=== PATIENT | female | born 1945 | race Native Hawaiian/Other Pacific Islander ===

== ENCOUNTER 2021-03-24 20:35 | Inpatient (IN) | payer MEDICARE, OTHER ==
--- NOTE | 2021-03-24 21:45 | Emergency Department Report ---
ED Fall HPI - General Stated Complaint: HIP PAIN Time Seen by Provider: 03/24/21 21:30 Source: patient, EMS Mode of arrival: Stretcher - History of Present Illness Initial Comments: Patient is 75-year-old female with history of hypertension. Patient brought to the emergency room via EMS from home for evaluation after a fall that happened this morning in the bathroom. Patient tripped fell and hit her head on the edge of the toilet bowl. Patient denied any loss of consciousness. Patient accompanied by her son who is translating for us. He stated that since the fall she is complaining of bilateral hip pain right shoulder pain and headache. She is also complaining of neck pain. Patient denied any symptoms prior to the fall. MD Complaint: fall -: This morning Fall From: standing Fall Witnessed: yes, by family Place Fall Occurred: home Symptoms Prior to Fall: none Location: head, neck, pelvis Location - Extremities: Right: Shoulder Quality: sharp Context: tripped/slipped - Related Data Allergies Allergy/AdvReac Type Severity Reaction Status Date / Time No Known Allergies Allergy Verified 03/24/21 21:46 ED Review of Systems ROS: Stated complaint: HIP PAIN Other details as noted in HPI Comment: All other systems reviewed and negative Constitutional: denies: chills, fever Respiratory: denies: cough, shortness of breath, SOB with exertion Cardiovascular: denies: chest pain Gastrointestinal: denies: abdominal pain, nausea, vomiting Musculoskeletal: denies: back pain Neurological: headache. denies: weakness, numbness, paresthesias, confusion, abnormal gait ED Physical Exam - General General appearance: alert, in no apparent distress - Head Head exam: Present: atraumatic, normocephalic, normal inspection - Eye Eye exam: Present: normal appearance - ENT ENT exam: Present: normal exam, normal orophraynx, mucous membranes moist - Neck Neck exam: Present: normal inspection, full ROM. Absent: tenderness, meningismus - Respiratory Respiratory exam: Present: normal lung sounds bilaterally - Cardiovascular Cardiovascular Exam: Present: regular rate, normal rhythm, normal heart sounds - GI/Abdominal GI/Abdominal exam: Present: soft, normal bowel sounds. Absent: distended, tenderness, rigid, organomegaly, mass, bruit, pulsatile mass, hernia - Extremities Exam Extremities exam: Present: normal inspection, full ROM, normal capillary refill. Absent: tenderness - Back Exam Back exam: Present: normal inspection, full ROM. Absent: CVA tenderness (R), CVA tenderness (L) - Neurological Exam Neurological exam: Present: alert, oriented X3, CN II-XII intact - Psychiatric Psychiatric exam: Present: normal mood - Skin Skin exam: Present: warm, intact, normal color ED Course Vital Signs 03/24/21 03/24/21 03/24/21 21:30 21:46 23:56 Temperature 98.0 F Pulse Rate 79 73 71 Respiratory 14 22 19 Rate Blood Pressure 114/36 114/36 Blood Pressure 118/35 [Left] O2 Sat by Pulse 97 96 98 Oximetry 03/25/21 03/25/21 03/25/21 00:00 00:16 00:28 Temperature Pulse Rate 70 70 Respiratory 20 21 18 Rate Blood Pressure 114/36 114/36 Blood Pressure [Left] O2 Sat by Pulse 98 98 Oximetry 03/25/21 03/25/21 03/25/21 00:30 00:58 01:00 Temperature Pulse Rate 71 70 Respiratory 19 18 14 Rate Blood Pressure 120/32 125/31 Blood Pressure [Left] O2 Sat by Pulse 97 97 Oximetry 03/25/21 03/25/21 03/25/21 01:16 01:30 02:00 Temperature Pulse Rate 71 70 70 Respiratory 12 13 22 Rate Blood Pressure 108/36 108/36 105/29 Blood Pressure [Left] O2 Sat by Pulse 97 98 99 Oximetry ED Medical Decision Making - Lab Data Result diagrams: 03/25/21 00:16 03/24/21 21:46 - EKG Data -: EKG Interpreted by Al EKG shows normal: sinus rhythm Rate: normal - EKG Data Interpretation: no acute changes - Radiology Data Radiology results: report reviewed - Medical Decision Making Patient is 75-year-old female with history of hypertension. Patient brought to the emergency room via EMS from home for evaluation after a fall that happened this morning in the bathroom. Patient tripped fell and hit her head on the edge of the toilet bowl. Patient denied any loss of consciousness. Patient accompanied by her son who is translating for us. He stated that since the fall she is complaining of bilateral hip pain right shoulder pain and headache. She is also complaining of neck pain. Patient denied any symptoms prior to the fall. EKG showed sinus rhythm with no ST elevation. CT brain, CT cervical spine is unremarkable. Pelvic x-ray is negative for acute finding. Labs reviewed and showed significantly elevated white blood cells of 34,000 however the work-up in the ER failed to find source of the leukocytosis. Chest x-ray is unremarkable. Urine is negative. CT abdomen and pelvis with IV contrast showed no acute abnormalities. Patient initially given Zosyn empirically. I discussed the ladi ent with Dr. MARTÍNEZ, he agreed to admit the patient to medical service for further management. Critical care attestation.: If time is entered above; I have spent that time in minutes in the direct care of this critically ill patient, excluding procedure time. ED Disposition Clinical Impression: Fall, Leukocytosis, unspecified Disposition: DC09 OP ADMIT IP TO THIS HOSP Is pt being admited?: Yes Condition: Stable
[2021-03-24 22:13] LABS: INR 1.2 (0.87-1.13)
[2021-03-24 22:14] LABS: Partial Thromboplastin Time 38.2 Sec. (24.2-36.6)
[2021-03-24 22:17] LABS: Hemoglobin 7.8 gm/dl (10.1-14.3)
[2021-03-24 22:18] LABS: Hematocrit 23.6 % (30.3-42.9); Mean Corpuscular HGB Conc 33 % (30-34); Mean Corpuscular Volume 85 fl (79-97); Platelet Count 548 K/mm3 (140-440); Red Cell Distribution Width 16.1 % (13.2-15.2)
[2021-03-24 22:20] LABS: Calcium 8.1 mg/dL (8.4-10.2)
[2021-03-24 22:22] LABS: Alanine Aminotransferase 37 units/L (7-56); Albumin 2.4 g/dL (3.9-5)
[2021-03-24 22:25] LABS: Bilirubin,Direct < 0.2 mg/dL (0-0.2)
--- NOTE | 2021-03-24 22:25 | Cat Scan Report ---
CT HEAD WITHOUT CONTRAST INDICATION / CLINICAL INFORMATION: Patient had a fall, now with head pain. TECHNIQUE: All CT scans at this location are performed using CT dose reduction for ALARA by means of automated e xposure control. COMPARISON: None available. FINDINGS: HEMORRHAGE: None. EXTRA-AXIAL SPACES: Normal in size and morphology for the patient's age. VENTRICULAR SYSTEM: Normal in size and morphology for the patient's age. CEREBRAL PARENCHYMA: No significant abnormality. No acute territorial infarct. MIDLINE SHIFT OR HERNIATION: None. CEREBELLUM / BRAINSTEM: No significant abnormality. ORBITS: Normal as visualized. SOFT TISSUES of HEAD: No significant abnormality. CALVARIUM: No significant abnormality. PARANASAL SINUSES / MASTOID AIR CELLS: Normal as visualized. ADDITIONAL FINDINGS: None. IMPRESSION: No acute intracranial abnormality. Signer Name: Phil Benjamin MD Signed: 03/24/2021 10:20 PM Workstation Name: [id number]
--- NOTE | 2021-03-24 22:27 | Cat Scan Report ---
CT CERVICAL SPINE WITHOUT CONTRAST INDICATION / CLINICAL INFORMATION: Patient had a fall, now with neck pain. TECHNIQUE: Axial CT images were obtained through the cervical spine. Sagittal and coronal reformatted images wer e produced. All CT scans at this location are performed using CT dose reduction for ALARA by means of automated exposure control. COMPARISON: None available. FINDINGS: VERTEBRAE: No significant abnormality. ALIGNMENT: Mild degenerative straightening of the cervical spine. DISC SPACES: There is mild to moderate disc space height loss at C5-6 C6-7. FACET JOINTS: Mild multilevel degenerative spondylosis. CRANIOCERVICAL JUNCTION:No significant abnormality. SPINAL CANAL: No significant abnormality. PARASPINAL SOFT TISSUES: No significant abnormality. ADDITIONAL FINDINGS: None. LUNG APICES: No significant abnormality of visualized lungs. IMPRESSION: No acute abnormality. Mild to moderate multilevel degenerative spondylosis. Signer Name: Phil Benjamin MD Signed: 03/24/2021 10:23 PM Workstation Name: [id number]
[2021-03-24] MEDS ORDERED: SODIUM CHLORIDE 0.9% 1000 ML 1,000 ML IV ONE (22:49)
[2021-03-24] MEDS ORDERED: PIPERACILLIN/TAZOBACTAM 3.375 3.375 GM/50 ML BAG IV ONE (23:00)
--- NOTE | 2021-03-24 23:33 | XRay Report ---
CHEST 1 VIEW 03/24/2021 10:13 PM INDICATION / CLINICAL INFORMATION: Fall. COMPARISON: None available. FINDINGS: SUPPORT DEVICES: None. HEART / MEDIASTINUM: No significant abnormality. LUNGS / PLEURA: No significant pulmonary or pleural abnormality. No pneumothorax. ADDITIONAL FINDINGS: No significant additional findings. IMPRESSION: No acute abnormality. Signer Name: Ayaz Sellers MD Signed: 03/24/2021 11:29 PM Workstation Name: [id number]
--- NOTE | 2021-03-24 23:33 | XRay Report ---
LEFT SHOULDER 3 VIEWS INDICATION / CLINICAL INFORMATION: Fall COMPARISON: None available. FINDINGS: BONES / JOINT(S): No acute fracture or subluxation. No significant arthritis. SOFT TISSUES: Possible calcific tendinosis of the rotator cuff. ADDITIONAL FINDINGS: None. Signer Name: Ayaz Sellers MD Signed: 03/24/2021 11:28 PM Workstation Name: [id number]
--- NOTE | 2021-03-24 23:35 | XRay Report ---
BILATERAL HIPS 2 VIEWS EACH INDICATION / CLINICAL INFORMATION: fall COMPARISON: None available. FINDINGS: BONES / JOINT(S): No acute fracture or subluxation. Mild symmetric DJD. SOFT TISSUES: No significant abnormality. ADDITIONAL FINDINGS: None. Signer Name: Ayaz Sellers MD Signed: 03/24/2021 11:30 PM Workstation Name: [id number]
[2021-03-25] MEDS ORDERED: ONDANSETRON 4 MG/2 ML INJ IV ONE (00:09)
[2021-03-25] MEDS ORDERED: MORPHINE 4 MG/1 ML INJ IV ONE (00:09)
[2021-03-25 00:48] LABS: Bacteria,Urine 1+ /HPF (Negative); Bilirubin,Urine NEG (Negative); Blood,Urine SM (Negative); Color,Urine Amber (Yellow); Mucus,Urine FEW /HPF
[2021-03-25 00:52] LABS: Hematocrit 25.8 % (30.3-42.9); Hemoglobin 8.6 gm/dl (10.1-14.3); Mean Corpuscular HGB Conc 33 % (30-34); Mean Corpuscular Volume 84 fl (79-97); Platelet Count 627 K/mm3 (140-440); Red Blood Count 3.08 M/mm3 (3.65-5.03); Red Cell Distribution Width 16.6 % (13.2-15.2)
[2021-03-25 00:53] LABS: Band Neutrophils # (Manual) 0.6 K/mm3; Total Cells Counted 100
[2021-03-25 00:58] LABS: Platelet Estimate Consistent w Auto; RBC Morphology Normal
[2021-03-25] MEDS ORDERED: SODIUM CHLORIDE 0.9% 1000 ML 1,000 ML IV ONE (01:43)
[2021-03-25 03:31] LABS: Band Neutrophils # (Manual) 0.3 K/mm3; Total Cells Counted 100
[2021-03-25 03:32] LABS: Platelet Estimate Consistent w Auto; RBC Morphology Normal
--- NOTE | 2021-03-25 04:38 | Cat Scan Report ---
CT ABDOMEN AND PELVIS WITH CONTRAST INDICATION / CLINICAL INFORMATION: Post-fall, now complaining of bilateral hip pain.. TECHNIQUE: Axial CT images were obtained through the abdomen and pelvis after Omnipaque 300, 100 cc I V contrast. All CT scans at this location are performed using CT dose reduction for ALARA by means o f automated exposure control. COMPARISON: None available. FINDINGS: LOWER CHEST: No significant abnormality. LIVER: No significant abnormality. GALLBLADDER: No significant abnormality. BILE DUCTS: No significant abnormality. PANCREAS: No significant abnormality. SPLEEN: No significant abnormality. ADRENALS: No significant abnormality. RIGHT KIDNEY / URETER: No significant abnormality. LEFT KIDNEY / URETER: No significant abnormality. STOMACH / SMALL BOWEL: No significant abnormality. COLON: Noninflamed diverticula descending and sigmoid colon's. APPENDIX: Nonvisualized. PERITONEUM: No free fluid. No free air. No fluid collection. LYMPH NODES: No significant adenopathy. VASCULAR STRUCTURES: Dense atherosclerotic vascular calcification. URINARY BLADDER: No significant abnormality. REPRODUCTIVE ORGANS: Prominent calcification at the uterus. ADDITIONAL FINDINGS: Fluid tracks along the medial and posterior lateral aspect of the acetabulum. Th ere is also thickening in the region of the sacrospinous ligament on the right measuring approximatel y 5.2 x 3.8 cm. SKELETAL SYSTEM: No knee injury. Underlying osteopenia. Grade 1 spondylolisthesis L5-S1 with underlyi ng severe DJD. Probable bone infarct right ishium. IMPRESSION: 1. Soft tissue injury at the right pelvis without underlying bony injury. 2. No acute abnormality within the abdomen or pelvis. 3. Noninflamed colonic diverticulosis is mild. Signer Name: Ayaz Sellers MD Signed: 03/25/2021 4:33 AM Workstation Name: [id number]
--- NOTE | 2021-03-25 09:23 | History and Physical Report ---
History of Present Illness Date of examination: 03/25/21 Date of admission: 03/25/21 05:57 Chief complaint: Status post fall History of present illness: Patient is 75-year-old female with history of cervical cancer which is now in remission, hypertension and diabetes mellitus type 2 brought to the emergency room via EMS from home for evaluation after a fall that happened this morning in the bathroom. Patient tripped fell and hit her head on the edge of the toilet bowl. Patient denied any loss of consciousness. Patient accompanied by her son who is translating for us. He stated that patient had another fall before that and she didnot revel=al that to anyone until today morning. Since the fall she is complaining of bilateral hip pain right shoulder pain and headache. Patient denied any symptoms prior to the fall. In the ER, EKG showed sinus rhythm with no ST elevation. CT brain, CT cervical spine is unremarkable. Pelvic x-ray is negative for acute finding. Labs reviewed and showed significantly elevated white blood cells of 34,000. Chest x-ray is unremarkable. Urine is negative. CT abdomen and pelvis with IV contrast showed no acute abnormalities. Patient initially given Zosyn empirically. Patient was then called for admission for further evaluation and management. Past medical History: h/o hypertension, diabetes mellitus, history of cervical cancer now in remission Past surgical History: s/p tubal ligation, possible hysterectomy Social History: Lives with family, denies any smoking, drinking and elicit drug abuse. Family History: Significant for hypertension and heart disease Review of System: Constitutional: no fever, no chills, no weight loss Ears, eyes, nose, mouth and throat: no nasal congestion, no nasal discharge, no sinus pressure, no vision change, no red eye. Neck: No neck pain or rigidity. Cardiovascular: No chest pain, no orthopnea, no palpitations, no leg swelling Respiratory: No shortness of breath, no cough, no congestion, no wheezing Gastrointestinal: no abdominal pain, no nausea, no vomiting Genitourinary : no dysuria, no hematuria Musculoskeletal: no joint swelling or muscle ache, + pelvic pain Integumentary: no rash, no pruritis Neurological: no parathesias, no numbness, no tingling Endocrine: no cold or heat intolerance, no polyuria or polydipsia Hematologic/Lymphatic: no easy bruising, no easy bleeding, no gland swelling Allergic/Immunologic: no urticaria, no angioedema. Medications and Allergies Allergies Allergy/AdvReac Type Severity Reaction Status Date / Time No Known Allergies Allergy Verified 03/24/21 21:46 Home Medications Medication Instructions Recorded Confirmed Last Taken Type Amlodipine Besylate [Norvasc] 10 mg PO DAILY 03/25/21 03/25/21 03/24/21 10:00 History AtorvaSTATin [Lipitor] 40 mg PO QHS 03/25/21 03/25/21 03/24/21 21:00 History Diclofenac 1% [Diclofenac 1% 100 gm TP QID 03/25/21 03/25/21 03/24/21 21:00 History topical gel] Gabapentin [Neurontin] 100 mg PO DAILY 03/25/21 03/25/21 03/24/21 21:00 History Nitrofurantoin Macrocrystal 100 mg PO BID 03/25/21 03/25/21 03/24/21 21:00 History [Nitrofurantoin] hydroCHLOROthiazide [HCTZ] 25 mg PO DAILY 03/25/21 03/25/21 03/24/21 10:00 History lisinopriL [Zestril TAB] 40 mg PO QDAY 03/25/21 03/25/21 03/24/21 10:00 History metFORMIN [Glucophage] 500 mg PO BID 03/25/21 03/25/21 03/24/21 17:00 History Active Meds: Active Medications Pneumococcal Polyvalent Vaccine (Pneumococcal 23 Valent 0.5 Ml Vial) 0.5 ml IM .ONCE ONE Stop: 03/25/21 09:13 Exam - Physical Exam Narrative exam: GENERAL: well-developed and well-nourished elderly female appears in moderate distress HEENT: Normocephalic. Atraumatic. No conjunctival congestion or icterus. Patient has moist mucous membranes. NECK: Supple. Trachea midline. CHEST/LUNGS: Clear to auscultated bilaterally, breathing nonlabored. No wheezes crackles or rhonchi. HEART/CARDIOVASCULAR: Regular in rate and rhythm. S1 and S2 positive. ABDOMEN: Abdomen is soft, nontender. Patient has normal bowel sounds. SKIN: There is no rash. Warm and dry. NEURO: No focal motor deficit. Follows command. MUSCULOSKELETAL: No joint effusion or tenderness. tenderness over the pelvic floor area EXTRIMITY: No edema, no cyanosis or clubbing. PSYCH: Cooperative. - Constitutional Vitals: Temp Pulse Resp BP Pulse Ox 98.0 F 71 17 121/42 97 03/24/21 21:30 03/25/21 08:42 03/25/21 08:00 03/25/21 08:42 03/25/21 08:42 Results - Labs CBC & Chem 7: 03/26/21 10:24 03/26/21 05:22 Labs: Abnormal lab results 03/24/21 03/24/21 03/24/21 Range/Units 21:46 21:46 21:46 WBC 31.4 H (4.5-11.0) K/mm3 RBC 2.80 L (3.65-5.03) M/mm3 Hgb 7.8 L (10.1-14.3) gm/dl Hct 23.6 L (30.3-42.9) % RDW 16.1 H (13.2-15.2) % Plt Count 548 H (140-440) K/mm3 Seg Neuts % (Manual) 90.0 H (40.0-70.0) % Lymphocytes % (Manual) 4.0 L (13.4-35.0) % Seg Neutrophils # Man 28.3 H (1.8-7.7) K/mm3 Monocytes # (Manual) 1.3 H (0.0-0.8) K/mm3 PT 15.0 H (12.2-14.9) Sec. INR 1.20 H (0.87-1.13) APTT 38.2 H (24.2-36.6) Sec. Sodium 126 L (137-145) mmol/L Chloride 90.5 L (98-107) mmol/L BUN 34 H (7-17) mg/dL Glucose 228 H (65-100) mg/dL POC Glucose (70-105) mg/dL Calcium 8.1 L (8.4-10.2) mg/dL AST (5-40) units/L Alkaline Phosphatase (35-129) units/L Total Protein (6.3-8.2) g/dL Albumin (3.9-5) g/dL 03/24/21 03/25/21 03/25/21 Range/Units 21:46 00:16 08:42 WBC 34.0 H (4.5-11.0) K/mm3 RBC 3.08 L (3.65-5.03) M/mm3 Hgb 8.6 L (10.1-14.3) gm/dl Hct 25.8 L (30.3-42.9) % RDW 16.6 H (13.2-15.2) % Plt Count 627 H (140-440) K/mm3 Seg Neuts % (Manual) 89.0 H (40.0-70.0) % Lymphocytes % (Manual) 6.0 L (13.4-35.0) % Seg Neutrophils # Man 30.3 H (1.8-7.7) K/mm3 Monocytes # (Manual) 1.4 H (0.0-0.8) K/mm3 PT (12.2-14.9) Sec. INR (0.87-1.13) APTT (24.2-36.6) Sec. Sodium (137-145) mmol/L Chloride (98-107) mmol/L BUN (7-17) mg/dL Glucose (65-100) mg/dL POC Glucose 167 H (70-105) mg/dL Calcium (8.4-10.2) mg/dL AST 46 H (5-40) units/L Alkaline Phosphatase 235 H (35-129) units/L Total Protein 5.7 L (6.3-8.2) g/dL Albumin 2.4 L (3.9-5) g/dL Assessment and Plan Status post fall -CT head without any acute process -Patient has no focal deficit -Continue to monitor clinically and PT eval when clinically more stable Severe pelvic pain -Likely traumatic following fall -CT abdomen pelvis x-ray soft tissue injury without any sign of fracture -Pain management as needed Leukocytosis with WBC > 31K -We will place patient on empiric antibiotic -We will consult ID and obtain alejandre culture Hyponatrenia, likely due to dehydration, continue IV fluid Normocytic anemia -Monitor H&H follow clinically Hypotension, likely from dehydration continue IV fluid DVT prophylaxis with Lovenox - admit to tele, order alejandre Cx, empiric abx - iv fluid, consult ID - monitor vitals, PT eval, cardiac diet
[2021-03-25] MEDS ORDERED: VANCOMYCIN 1,000 MG in SODIUM CHLORIDE 0.9% 500 ML 500 ML IV ONE (09:26)
[2021-03-25] MEDS ORDERED: cefTRIAXone/NS 1 GM/50 ML 1 GM/50 ML BAG IV SCH (10:00)
[2021-03-25] MEDS ORDERED: hydrALAZINE 20 MG/1 ML INJ IV PRN (10:30)
[2021-03-25] MEDS ORDERED: ACETAMINOPHEN 325 MG TAB PO PRN (10:30)
[2021-03-25] MEDS ORDERED: ONDANSETRON 4 MG/2 ML INJ IV PRN (10:30)
[2021-03-25] MEDS ORDERED: VANCOMYCIN 1,250 MG in SODIUM CHLORIDE 0.9% 250ML 250 ML IV ONE (11:00)
[2021-03-25] MEDS: SODIUM CHLORIDE 0.9% 1000 ML 1,000 ML IV SCH (11:04)
[2021-03-25] MEDS ORDERED: cefTRIAXone/NS 2 GM/100 ML 2 GM/100 ML BAG IV SCH (11:30)
[2021-03-25] MEDS ORDERED: VANCOMYCIN PHARMACY TO DOSE IV SCH (12:00)
[2021-03-25] MEDS: HYDROcodone/ACETAMINOPHEN 5-325 MG TAB PO PRN (14:40)
--- NOTE | 2021-03-25 16:14 | Consultation ---
History of Present Illness - Reason for Consult Consult date: 03/25/21 leukocytosis Requesting physician: AMBROCIO GIBSON - History of Present Illness 75-year-old female with history of hypertension, diabetes, admitted on 03/24/2021 secondary to a fall in the bathroom at home. She tripped fell bumping her head on the edge of the toilet bowl. Patient did not lose her consciousness. She has been complaining of bilateral hip pain since fall. However on further inter viewing patient complains of pelvic pain for several months. On arrival, temperature 98, HR 79, RR 14, O2 sat 97%, BP 118/35. Initial WBC 31.4. Hemoglobin 7.8. Platelets 548. Segs 90%. Creatinine 1.2. AST 46. Urinalysis negative blood cultures pending. CT of brain, CT cervical spine unremarkable. Pelvic x-ray unremarkable. Review of Systems: positive in bold print General: Generalized weakness Cutaneous: rash, pruritus Head: headaches or injury Eyes: changes in vision, eye pain, double vision Ears: ear pain, ear discharge, ringing or hearing loss Nose: nose bleeding, stuffiness Mouth & throat: bleeding gums, horseness, no dental problems, or swollen glands Neck: no pain, node enlargement/lumps, tyroid enlargement or tenderness Respiratory: SOB, cough, THAKKAR, wheezing, sputum, hemoptysis, pleuritic chest pain Cardiovascular: chest pain, leg edema, cyanosis, THAKKAR, orthopnea Musculoskeletal: edema, deformities, hip and pelvic pain Gastrointestinal: nausea, vomiting, hematemesis, diarrhea, constipation, me alireza, bright red blood in stools, fecal incontinence, jaundice Genitourinary/Reproductive: frequent urination, dysuria, hematuria, incontinence Neurogical: seizures, headaches, weakness, paresthesias, loss of speech or vision; memory loss, vertigo, tremors, numbness Psychiatric: stable mood; excessive anxiety, sadness or moodiness Medications and Allergies Allergies Allergy/AdvReac Type Severity Reaction Status Date / Time No Known Allergies Allergy Verified 03/24/21 21:46 Home Medications Medication Instructions Recorded Confirmed Last Taken Type Amlodipine Besylate [Norvasc] 10 mg PO DAILY 03/25/21 03/25/21 03/24/21 10:00 History AtorvaSTATin [Lipitor] 40 mg PO QHS 05/11/0303/25/21 03/24/21 21:00 History Diclofenac 1% [Diclofenac 1% 100 gm TP QID 03/25/21 03/25/21 03/24/21 21:00 History topical gel] Gabapentin [Neurontin] 100 mg PO DAILY 03/25/21 03/25/21 03/24/21 21:00 History Nitrofurantoin Macrocrystal 100 mg PO BID 03/25/21 03/25/21 03/24/21 21:00 Hist ory [Nitrofurantoin] hydroCHLOROthiazide [HCTZ] 25 mg PO DAILY 03/25/21 03/25/21 03/24/21 10:00 History lisinopriL [Zestril TAB] 40 mg PO QDAY 03/25/21 03/25/21 03/24/21 10:00 History metFORMIN [Glucophage] 500 mg PO BID 03/25/21 03/25/21 03/24/21 17:00 History Active Meds: Active Medications Acetaminophen (Acetaminophen 325 Mg Tab) 650 mg PO Q4H PRN PRN Reason: Pain MILD(1-3)/Fever >100.5/GUAJARDO Last Admin: 03/25/21 10:56 Dose: 650 mg Documented by: Hydrocodone Bitart/Acetaminophen (Hydrocodone/Acetaminophen 5-325 Mg Tab) 2 each PO Q6H PRN PRN Reason: Pain, Moderate (4-6) Last Admin: 03/25/21 14:40 Dose: 2 each Documented by: Enoxaparin Sodium (Enoxaparin 40 Mg/0.4 Ml Inj) 40 mg SUB-Q QDAY@2200 PHONG; Protocol Hydralazine HCl (Hydralazine 20 Mg/1 Ml Inj) 5 mg IV Q30MIN PRN PRN Reason: Hypertension Sodium Chloride (Nacl 0.9% 1000 Ml) 1,000 mls @ 100 mls/hr IV DIRECT PHONG Last Admin: 03/25/21 11:04 Dose: 100 mls/hr Documented by: Ceftriaxone Sodium (Rocephin/Ns 2 Gm/100 Ml) 2 gm in 100 mls @ 200 mls/hr IV Q24H PHONG Last Admin: 03/25/21 11:34 Dose: 200 mls/hr Documented by: Vancomycin HCl (Vancomycin/Ns 1 Gm/250 Ml) 1 gm in 250 mls @ 166.667 mls/hr IV Q24H [facility] Ondansetron HCl (Ondansetron 4 Mg/2 Ml Inj) 4 mg IV Q8H PRN PRN Reason: Nausea And Vomiting Pneumococcal Polyvalent Vaccine (Pneumococcal 23 Valent 0.5 Ml Vial) 0.5 ml IM .ONCE ONE Stop: 03/26/21 12:01 Physical Examination - Physical Exam Narrative exam: General appearance: Alert in NAD pleasant Eyes: anicteric sclerae, moist conjunctivae; no lid-lag; PERRLA HENT: Normocephalic, Atraumatic; normal external ears, nares open, oropharynx partially edentulous Neck: supple, tracheal midline, no JVD Lungs: CTA, with normal respiratory effort and no intercostal retractions CV: RRR no murmur Abdomen: Soft, non-tender; no masses or hepatosplenomegaly Extremities: no edema, no cyanosis, bilateral ischial area tenderness Skin: No rash. Psych: no agitated Neuro: alert and oriented x 3. Moving all extermities - Constitutional Vitals: Vital Signs Temp Pulse Resp BP Pulse Ox 99.1 F 67 18 117/38 95 03/25/21 10:54 03/25/21 10:44 03/25/21 12:13 03/25/21 10:54 03/25/21 10:44 Temperature -Last 24 Hours Temperature 99.1 F Temperature 98.0 F Results - Labs CBC & Chem 7: 03/25/21 00:16 03/24/21 21:46 Labs: Abnormal lab results 03/24/21 03/24/21 03/24/21 Range/Units 21:46 21:46 21:46 WBC 31.4 H (4.5-11.0) K/mm3 RBC 2.80 L (3.65-5.03) M/mm3 Hgb 7.8 L (10.1-14.3) gm/dl Hct 23.6 L (30.3-42.9) % RDW 16.1 H (13.2-15.2) % Plt Count 548 H (140-440) K/mm3 Seg Neuts % (Manual) 90.0 H (40.0-70.0) % Lymphocytes % (Manual) 4.0 L (13.4-35.0) % Seg Neutrophils # Man 28.3 H (1.8-7.7) K/mm3 Monocytes # (Manual) 1.3 H (0.0-0.8) K/mm3 PT 15.0 H (12.2-14.9) Sec. INR 1.20 H (0.87-1.13) APTT 38.2 H (24.2-36.6) Sec. Sodium 126 L (137-145) mmol/L Chloride 90.5 L (98-107) mmol/L BUN 34 H (7-17) mg/dL Glucose 228 H (65-100) mg/dL POC Glucose (70-105) mg/dL Calcium 8.1 L (8.4-10.2) mg/dL AST (5-40) units/L Alkaline Phosphatase (35-129) units/L Total Protein (6.3-8.2) g/dL Albumin (3.9-5) g/dL 03/24/21 03/25/21 03/25/21 Range/Units 21:46 00:16 08:42 WBC 34.0 H (4.5-11.0) K/mm3 RBC 3.08 L (3.65-5.03) M/mm3 Hgb 8.6 L (10.1-14.3) gm/dl Hct 25.8 L (30.3-42.9) % RDW 16.6 H (13.2-15.2) % Plt Count 627 H (140-440) K/mm3 Seg Neuts % (Manual) 89.0 H (40.0-70.0) % Lymphocytes % (Manual) 6.0 L (13.4-35.0) % Seg Neutrophils # Man 30.3 H (1.8-7.7) K/mm3 Monocytes # (Manual) 1.4 H (0.0-0.8) K/mm3 PT (12.2-14.9) Sec. INR (0.87-1.13) APTT (24.2-36.6) Sec. Sodium (137-145) mmol/L Chloride (98-107) mmol/L BUN (7-17) mg/dL Glucose (65-100) mg/dL POC Glucose 167 H (70-105) mg/dL Calcium (8.4-10.2) mg/dL AST 46 H (5-40) units/L Alkaline Phosphatase 235 H (35-129) units/L Total Protein 5.7 L (6.3-8.2) g/dL Albumin 2.4 L (3.9-5) g/dL Assessment and Plan Cultures: Blood culture 03/25/2021 no growth today Assessment: 75-year-old female with history of hypertension, diabetes, admitted on 03/24/2021 secondary to a fall in the bathroom at home pain for several months: #Leukocytosis and thrombocytosis: Of unclear etiology. Patient complaining of pelvic pain for several months. CT abdomen shows fluid tracks along the right medial acetabulum and thickening of the sacrospinosus ligament. Abdominal CT otherwise unremarkable. Patient denies any weight loss. Patient is not the best historian. #Anemia #Elevated LFTs: Mild, AST 46. Unclear etiology, CT without cholecystitis. Recommendations: -Obtain ESR and CRP -Obtain pelvic MRI with contrast -Stop antibiotics for now -Heme-onc consultation rule out malignancy -Check procalcitonin Will follow. Gillian Arambula MD Infectious Diseases Structural [employer] [facility] M [phone] O [phone]
[2021-03-25] MEDS ORDERED: SODIUM CHLORIDE 0.9% 250ML 250 ML IV SCH ×2 (17:00→18:00)
[2021-03-25] MEDS ORDERED: NORepinephrine/NS 4 MG-250 ML 4 MG/250 ML BAG IV SCH (18:00)
[2021-03-25] MEDS: ENOXAPARIN 40 MG/0.4 ML INJ SUB-Q SCH (21:06)
[2021-03-25] MEDS ORDERED: VANCOMYCIN/NS 1 GM/250 ML 1 GM/250 ML BAG IV SCH (22:00)
--- NOTE | 2021-03-26 03:12 | Hem/Onc Consultation ---
History of Present Illness - History of Present Illness heme/onc prelim consult data review only 75yo woman admitted after falloing found to have high plt and WBC DATA REVIEWED BELOW IMP: presumed myeloproliferative disorder doubt heme malignancy REC: will consider Hydroxyurea will consider bone marrow biopsy to look for myelofibrosis labs to include iron testing, JAK2 mutation, BCR-ABL Laboratory Last Values WBC 34.0 K/mm3 (4.5-11.0) H 03/25/21 00:16 Hgb 8.6 gm/dl (10.1-14.3) L 03/25/21 00:16 Hct 25.8 % (30.3-42.9) L 03/25/21 00:16 Plt Count 627 K/mm3 (140-440) H 03/25/21 00:16 ESR > 140.0 mm/Hr (0-20) 03/25/21 19:04 INR 1.20 (0.87-1.13) H 03/24/21 21:46 APTT 38.2 Sec. (24.2-36.6) H 03/24/21 21:46 rine Bacteria (Auto) 1+ /HPF (Negative) 03/25/21 Unknown Urine Mucus Few /HPF 03/25/21 Unknown Medications and Allergies Allergies Allergy/AdvReac Type Severity Reaction Status Date / Time No Known Allergies Allergy Verified 03/24/21 21:46 Home Medications Medication Instructions Recorded Confirmed Last Taken Type Amlodipine Besylate [Norvasc] 10 mg PO DAILY 03/25/21 03/25/21 03/24/21 10:00 History AtorvaSTATin [Lipitor] 40 mg PO QHS 03/25/21 03/25/21 03/24/21 21:00 History Diclofenac 1% [Diclofenac 1% 100 gm TP QID 03/25/21 03/25/21 03/24/21 21:00 History topical gel] Gabapentin [Neurontin] 100 mg PO DAILY 03/25/21 03/25/21 03/24/21 21:00 History Nitrofurantoin Macrocrystal 100 mg PO BID 03/25/21 03/25/21 03/24/21 21:00 History [Nitrofurantoin] hydroCHLOROthiazide [HCTZ] 25 mg PO DAILY 03/25/21 03/25/21 03/24/21 10:00 History lisinopriL [Zestril TAB] 40 mg PO QDAY 03/25/21 03/25/21 03/24/21 10:00 History metFORMIN [Glucophage] 500 mg PO BID 03/25/21 03/25/21 03/24/21 17:00 History Active Meds: Active Medications Acetaminophen (Acetaminophen 325 Mg Tab) 650 mg PO Q4H PRN PRN Reason: Pain MILD(1-3)/Fever >100.5/GUAJARDO Last Admin: 03/25/21 10:56 Dose: 650 mg Documented by: Hydrocodone Bitart/Acetaminophen (Hydrocodone/Acetaminophen 5-325 Mg Tab) 2 each PO Q6H PRN PRN Reason: Pain, Moderate (4-6) Last Admin: 03/25/21 14:40 Dose: 2 each Documented by: Atorvastatin Calcium (Atorvastatin 40 Mg Tab) 40 mg PO QHS PHONG Last Admin: 03/25/21 21:06 Dose: 40 mg Documented by: Enoxaparin Sodium (Enoxaparin 40 Mg/0.4 Ml Inj) 40 mg SUB-Q QDAY@2200 PHONG; Protocol Last Admin: 03/25/21 21:06 Dose: 40 mg Documented by: Hydralazine HCl (Hydralazine 20 Mg/1 Ml Inj) 5 mg IV Q30MIN PRN PRN Reason: Hypertension Sodium Chloride (Nacl 0.9% 1000 Ml) 1,000 mls @ 100 mls/hr IV DIRECT PHONG Last Admin: 03/25/21 11:04 Dose: 100 mls/hr Documented by: Ceftriaxone Sodium (Rocephin/Ns 2 Gm/100 Ml) 2 gm in 100 mls @ 200 mls/hr IV Q24H PHONG Last Infusion: 03/25/21 12:04 Dose: Infused Documented by: Vancomycin HCl (Vancomycin/Ns 1 Gm/250 Ml) 1 gm in 250 mls @ 166.667 mls/hr IV Q24H [facility] Norepinephrine (Levophed Drip 4 Mg/Ns 250 Ml) 4 mg in 250 mls @ 7.5 mls/hr IV TITR [facility]; Protocol Ondansetron HCl (Ondansetron 4 Mg/2 Ml Inj) 4 mg IV Q8H PRN PRN Reason: Nausea And Vomiting Last Admin: 03/25/21 18:18 Dose: 4 mg Documented by: Pneumococcal Polyvalent Vaccine (Pneumococcal 23 Valent 0.5 Ml Vial) 0.5 ml IM .ONCE ONE Stop: 03/26/21 12:01 Exam - Constitutional Vitals: Last Vital Signs Temp 97.4 F L 03/25/21 22:57 Pulse 68 03/26/21 02:12 Resp 18 03/25/21 22:57 BP 107/37 03/26/21 02:12 Pulse Ox 92 03/26/21 02:12 Results - Labs lab Results: Laboratory Results - last 24 hr 03/24/21 03/25/21 03/25/21 21:46 00:16 08:42 Add Manual Diff Complete Total Counted 100 Seg Neuts % (Manual) 89.0 H Band Neutrophils % 1.0 Lymphocytes % (Manual) 6.0 L Monocytes % (Manual) 4.0 Nucleated RBC % Not Reportable Seg Neutrophils # Man 30.3 H Band Neutrophils # 0.3 Lymphocytes # (Manual) 2.0 Abs React Lymphs (Man) 0.0 Monocytes # (Manual) 1.4 H Eosinophils # (Manual) 0.0 Basophils # (Manual) 0.0 Metamyelocytes # 0.0 Myelocytes # 0.0 Promyelocytes # 0.0 Blast Cells # 0.0 Pathologist Review WBC Morphology Not Reportable Hypersegmented Neuts Not Reportable Hyposegmented Neuts Not Reportable Hypogranular Neuts Not Reportable Smudge Cells Not Reportable Toxic Granulation Not Reportable Toxic Vacuolation Not Reportable Dohle Bodies Not Reportable Pelger-Huet Anomaly Not Reportable Ad Rods Not Reportable Platelet Estimate Consistent w auto Clumped Platelets Not Reportable Plt Clumps, EDTA Not Reportable Large Platelets Not Reportable Giant Platelets Not Reportable Platelet Satelliting Not Reportable Plt Morphology Comment Not Reportable RBC Morphology Normal Dimorphic RBCs Not Reportable Polychromasia Not Reportable Hypochromasia Not Reportable Poikilocytosis Not Reportable Anisocytosis Not Reportable Microcytosis Not Reportable Macrocytosis Not Reportable Spherocytes Not Reportable Pappenheimer Bodies Not Reportable Sickle Cells Not Reportable Target Cells Not Reportable Tear Drop Cells Not Reportable Ovalocytes Not Reportable Helmet Cells Not Reportable [place] Bodies Not Reportable [place] Rings Not Reportable [place] Cells Not Reportable Bite Cells Not Reportable Crenated Cell Not Reportable Elliptocytes Not Reportable Acanthocytes (Spur) Not Reportable Rouleaux Not Reportable Hemoglobin C Crystals Not Reportable Schistocytes Not Reportable Malaria parasites Not Reportable ESR Bautista Bodies Not Reportable Hem Pathologist Commnt No POC Glucose 167 H C-Reactive Protein 03/25/21 03/25/21 03/25/21 11:01 16:28 19:04 Add Manual Diff Total Counted Seg Neuts % (Manual) Band Neutrophils % Lymphocytes % (Manual) Monocytes % (Manual) Nucleated RBC % Seg Neutrophils # Man Band Neutrophils # Lymphocytes # (Manual) Abs React Lymphs (Man) Monocytes # (Manual) Eosinophils # (Manual) Basophils # (Manual) Metamyelocytes # Myelocytes # Promyelocytes # Blast Cells # Pathologist Review WBC Morphology Hypersegmented Neuts Hyposegmented Neuts Hypogranular Neuts Smudge Cells Toxic Granulation Toxic Vacuolation Dohle Bodies Pelger-Huet Anomaly Ad Rods Platelet Estimate Clumped Platelets Plt Clumps, EDTA Large Platelets Giant Platelets Platelet Satelliting Plt Morphology Comment RBC Morphology Dimorphic RBCs Polychromasia Hypochromasia Poikilocytosis Anisocytosis Microcytosis Macrocytosis Spherocytes Pappenheimer Bodies Sickle Cells Target Cells Tear Drop Cells Ovalocytes Helmet Cells [place] Bodies [place] Rings Nik Cells Bite Cells Crenated Cell Elliptocytes Acanthocytes (Spur) Rouleaux Hemoglobin C Crystals Schistocytes Malaria parasites ESR > 140.0 Bautista Bodies Hem Pathologist Commnt POC Glucose 249 H 227 H C-Reactive Protein 03/25/21 03/25/21 19:04 20:48 Add Manual Diff Total Counted Seg Neuts % (Manual) Band Neutrophils % Lymphocytes % (Manual) Monocytes % (Manual) Nucleated RBC % Seg Neutrophils # Man Band Neutrophils # Lymphocytes # (Manual) Abs React Lymphs (Man) Monocytes # (Manual) Eosinophils # (Manual) Basophils # (Manual) Metamyelocytes # Myelocytes # Promyelocytes # Blast Cells # Pathologist Review WBC Morphology Hypersegmented Neuts Hyposegmented Neuts Hypogranular Neuts Smudge Cells Toxic Granulation Toxic Vacuolation Dohle Bodies Pelger-Huet Anomaly Ad Rods Platelet Estimate Clumped Platelets Plt Clumps, EDTA Large Platelets Giant Platelets Platelet Satelliting Plt Morphology Comment RBC Morphology Dimorphic RBCs Polychromasia Hypochromasia Poikilocytosis Anisocytosis Microcytosis Macrocytosis Spherocytes Pappenheimer Bodies Sickle Cells Target Cells Tear Drop Cells Ovalocytes Helmet Cells [place] Bodies [place] Rings [place] Cells Bite Cells Crenated Cell Elliptocytes Acanthocytes (Spur) Rouleaux Hemoglobin C Crystals Schistocytes Malaria parasites ESR Bautista Bodies Hem Pathologist Commnt POC Glucose 217 H C-Reactive Protein 26.30 H
[2021-03-26 07:01] LABS: Albumin 1.9 g/dL (3.9-5); Calcium 7.6 mg/dL (8.4-10.2)
[2021-03-26 11:25] LABS: Hematocrit 24.7 % (30.3-42.9); Hemoglobin 8.1 gm/dl (10.1-14.3); Mean Corpuscular HGB Conc 33 % (30-34); Mean Corpuscular Volume 85 fl (79-97); Platelet Count 502 K/mm3 (140-440); Red Blood Count 2.91 M/mm3 (3.65-5.03); Red Cell Distribution Width 16.8 % (13.2-15.2)
--- NOTE | 2021-03-26 11:55 | Electrocardiograph Report ---
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
[2021-03-26] MEDS ORDERED: PNEUMOCOCCAL 23 Valent 0.5 ML VIAL IM ONE (12:00)
[2021-03-26] MEDS ORDERED: VANCOMYCIN/NS 1 GM/250 ML 1 GM/250 ML BAG IV SCH (12:00)
--- NOTE | 2021-03-26 12:51 | Consultation ---
History of Present Illness Consult date: 03/26/21 Requesting physician: AMBROCIO GIBSON Reason for consult: other (Sepsis) History of present illness: PULMONARY/CCM CONSULT NOTE (Full dictation # [id number]) Please see dictated notes for full details Medications and Allergies Allergies Allergy/AdvReac Type Severity Reaction Status Date / Time No Known Allergies Allergy Verified 03/24/21 21:46 Home Medications Medication Instructions Recorded Confirmed Last Taken Type Amlodipine Besylate [Norvasc] 10 mg PO DAILY 03/25/21 03/25/21 03/24/21 10:00 History AtorvaSTATin [Lipitor] 40 mg PO QHS 03/25/21 03/25/21 03/24/21 21:00 History Diclofenac 1% [Diclofenac 1% 100 gm TP QID 03/25/21 03/25/21 03/24/21 21:00 History topical gel] Gabapentin [Neurontin] 100 mg PO DAILY 03/25/21 03/25/21 03/24/21 21:00 History Nitrofurantoin Macrocrystal 100 mg PO BID 03/25/21 03/25/21 03/24/21 21:00 History [Nitrofurantoin] hydroCHLOROthiazide [HCTZ] 25 mg PO DAILY 03/25/21 03/25/21 03/24/21 10:00 History lisinopriL [Zestril TAB] 40 mg PO QDAY 03/25/21 03/25/21 03/24/21 10:00 History metFORMIN [Glucophage] 500 mg PO BID 03/25/21 03/25/21 03/24/21 17:00 History Active Meds: Active Medications Acetaminophen (Acetaminophen 325 Mg Tab) 650 mg PO Q4H PRN PRN Reason: Pain MILD(1-3)/Fever >100.5/GUAJARDO Last Admin: 03/25/21 10:56 Dose: 650 mg Documented by: Hydrocodone Bitart/Acetaminophen (Hydrocodone/Acetaminophen 5-325 Mg Tab) 2 each PO Q6H PRN PRN Reason: Pain, Moderate (4-6) Last Admin: 03/25/21 14:40 Dose: 2 each Documented by: Atorvastatin Calcium (Atorvastatin 40 Mg Tab) 40 mg PO QHS PHONG Last Admin: 03/25/21 21:06 Dose: 40 mg Documented by: Enoxaparin Sodium (Enoxaparin 40 Mg/0.4 Ml Inj) 40 mg SUB-Q QDAY@2200 PHONG; Protocol Last Admin: 03/25/21 21:06 Dose: 40 mg Documented by: Hydralazine HCl (Hydralazine 20 Mg/1 Ml Inj) 5 mg IV Q30MIN PRN PRN Reason: Hypertension Sodium Chloride (Nacl 0.9% 1000 Ml) 1,000 mls @ 100 mls/hr IV DIRECT PHONG Last Admin: 03/25/21 11:04 Dose: 100 mls/hr Documented by: Ondansetron HCl (Ondansetron 4 Mg/2 Ml Inj) 4 mg IV Q8H PRN PRN Reason: Nausea And Vomiting Last Admin: 03/25/21 18:18 Dose: 4 mg Documented by: Physical Examination Vital signs: Vital Signs Temp Pulse Resp BP Pulse Ox 98.0 F 79 14 118/35 97 03/24/21 21:30 03/24/21 21:30 03/24/21 21:30 03/24/21 21:30 03/24/21 21:30 Results - Laboratory Findings CBC and BMP: 03/26/21 10:24 03/26/21 05:22 PT/INR, D-dimer PT 15.0 Sec. (12.2-14.9) H 03/24/21 21:46 INR 1.20 (0.87-1.13) H 03/24/21 21:46 Abnormal lab findings: Abnormal Labs 03/24/21 03/24/21 03/24/21 21:46 21:46 21:46 WBC 31.4 H RBC 2.80 L Hgb 7.8 L Hct 23.6 L RDW 16.1 H Plt Count 548 H Seg Neuts % (Manual) 90.0 H Lymphocytes % (Manual) 4.0 L Seg Neutrophils # Man 28.3 H Monocytes # (Manual) 1.3 H PT 15.0 H INR 1.20 H APTT 38.2 H Sodium 126 L Chloride 90.5 L BUN 34 H Creatinine Glucose 228 H POC Glucose Calcium 8.1 L AST Alkaline Phosphatase C-Reactive Protein Total Protein Albumin 03/24/21 03/25/21 03/25/21 21:46 00:16 08:42 WBC 34.0 H RBC 3.08 L Hgb 8.6 L Hct 25.8 L RDW 16.6 H Plt Count 627 H Seg Neuts % (Manual) 89.0 H Lymphocytes % (Manual) 6.0 L Seg Neutrophils # Man 30.3 H Monocytes # (Manual) 1.4 H PT INR APTT Sodium Chloride BUN Creatinine Glucose POC Glucose 167 H Calcium AST 46 H Alkaline Phosphatase 235 H C-Reactive Protein Total Protein 5.7 L Albumin 2.4 L 03/25/21 03/25/21 03/25/21 11:01 16:28 19:04 WBC RBC Hgb Hct RDW Plt Count Seg Neuts % (Manual) Lymphocytes % (Manual) Seg Neutrophils # Man Monocytes # (Manual) PT INR APTT Sodium Chloride BUN Creatinine Glucose POC Glucose 249 H 227 H Calcium AST Alkaline Phosphatase C-Reactive Protein 26.30 H Total Protein Albumin 03/25/21 03/26/21 03/26/21 20:48 05:22 10:24 WBC 31.0 H RBC 2.91 L Hgb 8.1 L Hct 24.7 L RDW 16.8 H Plt Count 502 H Seg Neuts % (Manual) Lymphocytes % (Manual) Seg Neutrophils # Man Monocytes # (Manual) PT INR APTT Sodium 132 L Chloride BUN 35 H Creatinine 1.6 H Glucose 195 H POC Glucose 217 H Calcium 7.6 L AST Alkaline Phosphatase 198 H C-Reactive Protein Total Protein 6.1 L Albumin 1.9 L
--- NOTE | 2021-03-26 13:16 | Progress Note ---
Assessment and Plan Cultures: Blood culture 03/25/2021 no growth today MRSA PCR negative Assessment: 75-year-old female with history of hypertension, diabetes, admitted on 03/24/2021 secondary to a fall in the bathroom at home pain for several months: #Leukocytosis and thrombocytosis: Of unclear etiology. Patient complaining of pelvic pain for several months. CT abdomen shows fluid tracks along the right medial acetabulum and thickening of the sacrospinosus ligament. Abdominal CT otherwise unremarkable. Patient denies any weight loss. Patient is not the best historian. #bilateral ischial pain R>L: On exam severe tenderness noted mild induration on right ischeal area ? Abscess. Patient reports pain has been there for several weeks and radiates to the right foot. CRP 26. #Anemia #Elevated LFTs: Mild, AST 46. Unclear etiology, CT without cholecystitis. #GREGOR: Creatinine up Recommendations: -Obtain pelvic MRI with contrast and lumbar spine MRI evaluation for epidural abscess, discitis, rectal ischial abscess -Given concern about infection ? Pelvic abscess, will start Zosyn IV for now -If collection is identified, will request IR drainage -Heme-onc on board Discussed with attending Dr Krause Will follow. Gillian Arambula MD Infectious Diseases Activity Therapist [facility] [place] M [phone] O [phone] Subjective Date of service: 03/26/21 Principal diagnosis: Leukocytosis Interval history: Patient continues to complain of 10 out of 10 left ischial pain mainly with movement and radiated to the left foot, no fever. Objective - Exam Narrative Exam: General appearance: Alert in NAD pleasant Eyes: anicteric sclerae, moist conjunctivae; no lid-lag; PERRLA HENT: Normocephalic, Atraumatic; normal external ears, nares open, oropharynx partially edentulous Neck: supple, tracheal midline, no JVD Lungs: CTA, with normal respiratory effort and no intercostal retractions CV: RRR no murmur Abdomen: Soft, non-tender; no masses or hepatosplenomegaly Extremities: no edema, no cyanosis, bilateral ischial area tenderness Skin: lright ischeal tenderness and induration Psych: no agitated Neuro: alert and oriented x 3. Moving all extermities - Constitutional Vitals: Vital Signs Temp Pulse Resp BP Pulse Ox 98.8 F 76 18 136/45 98 03/26/21 11:35 03/26/21 11:35 03/26/21 11:35 03/26/21 11:35 03/26/21 11:35 Temperature -Last 24 Hours Temperature 98.8 F Temperature 98.9 F Temperature 97.2 F Temperature 97.4 F Temperature 98.3 F Temperature 98.6 F Temperature 98.0 F - Labs CBC & Chem 7: 03/26/21 10:24 03/26/21 05:22 Labs: Abnormal lab results 03/25/21 03/25/21 03/25/21 Range/Units 11:01 16:28 19:04 WBC (4.5-11.0) K/mm3 RBC (3.65-5.03) M/mm3 Hgb (10.1-14.3) gm/dl Hct (30.3-42.9) % RDW (13.2-15.2) % Plt Count (140-440) K/mm3 Sodium (137-145) mmol/L BUN (7-17) mg/dL Creatinine (0.6-1.2) mg/dL Glucose (65-100) mg/dL POC Glucose 249 H 227 H (70-105) mg/dL Calcium (8.4-10.2) mg/dL Alkaline Phosphatase (35-129) units/L C-Reactive Protein 26.30 H (0.00-1.30) mg/dL Total Protein (6.3-8.2) g/dL Albumin (3.9-5) g/dL 03/25/21 03/26/21 03/26/21 Range/Units 20:48 05:22 10:24 WBC 31.0 H (4.5-11.0) K/mm3 RBC 2.91 L (3.65-5.03) M/mm3 Hgb 8.1 L (10.1-14.3) gm/dl Hct 24.7 L (30.3-42.9) % RDW 16.8 H (13.2-15.2) % Plt Count 502 H (140-440) K/mm3 Sodium 132 L (137-145) mmol/L BUN 35 H (7-17) mg/dL Creatinine 1.6 H (0.6-1.2) mg/dL Glucose 195 H (65-100) mg/dL POC Glucose 217 H (70-105) mg/dL Calcium 7.6 L (8.4-10.2) mg/dL Alkaline Phosphatase 198 H (35-129) units/L C-Reactive Protein (0.00-1.30) mg/dL Total Protein 6.1 L (6.3-8.2) g/dL Albumin 1.9 L (3.9-5) g/dL
[2021-03-26] MEDS ORDERED: PIPERACIL/TAZOBACTA 4.5/NS 100 4.5 GM/100 ML VIAL IV SCH (14:00)
--- NOTE | 2021-03-26 14:04 | Progress Note ---
Assessment and Plan Status post fall -CT head without any acute process -Patient has no focal deficit -Continue to monitor clinically and PT eval when clinically more stable Severe pelvic pain -Likely traumatic following fall -CT abdomen pelvis x-ray soft tissue injury without any sign of fracture -Pain management as needed - Ordered for pelvic and lumbar spine MRI Leukocytosis with WBC > 31K -We will place patient on empiric antibiotic -We will consult ID and obtain alejandre culture -Heme-onc on board for possible myeloproliferative disorder Hyponatrenia, likely due to dehydration, continue IV fluid Hypotensive episode, resolved following IV fluid boluses Normocytic anemia with thrombocytosis -Monitor H&H follow clinically -Heme-onc on board Hypotension, likely from dehydration continue IV fluid DVT prophylaxis with Lovenox Daily clinical course: 03/25/21: Following admission patient noted to be hypotensive, given IV fluid boluses and continued fluid with maintenance rate. Plan to transfer to ICU to start on pressor if BP does not improve with fluid challenge. 03/26/21: Patient continues to complains of pelvic pain. Noted to have CVA tenderness over the right ischeal tuberosity. Will Obtain pelvic MRI with contrast and lumbar spine MRI evaluation for possible epidural abscess, di scitis, rectal ischial abscess, continue empiric antibiotics for now, ID following. Heme-onc consulted possible underlying myeloproliferative disorder we will follow pending labs- Subjective Date of service: 03/26/21 Principal diagnosis: Leukocytosis Interval history: Patient seen and examined. Medical records and medication list reviewed. No acute event overnight noted by the RN. Patient continue to complain of severe pelvic pain Discussed plan of care at bedside with patient. Objective - Exam Narrative Exam: GENERAL: well-developed and well-nourished elderly female appears in moderate distress HEENT: Normocephalic. Atraumatic. No conjunctival congestion or icterus. Patient has moist mucous membranes. NECK: Supple. Trachea midline. CHEST/LUNGS: Clear to auscultated bilaterally, breathing nonlabored. No wheezes crackles or rhonchi. HEART/CARDIOVASCULAR: Regular in rate and rhythm. S1 and S2 positive. ABDOMEN: Abdomen is soft, nontender. Patient has normal bowel sounds. SKIN: There is no rash. Warm and dry. NEURO: No focal motor deficit. Follows command. MUSCULOSKELETAL: No joint effusion or tenderness. tenderness over the pelvic floor area EXTRIMITY: No edema, no cyanosis or clubbing. PSYCH: Cooperative. - Constitutional Vitals: Vital Signs - 12hr 03/26/21 03/26/21 03/26/21 02:12 03:09 04:00 Temperature 97.2 F L Pulse Rate 68 72 67 Respiratory 16 Rate Blood Pressure 107/37 124/40 O2 Sat by Pulse 92 93 Oximetry 03/26/21 03/26/21 03/26/21 07:49 08:00 09:48 Temperature 98.9 F Pulse Rate 72 76 Respiratory 18 Rate Blood Pressure 139/48 O2 Sat by Pulse 100 99 Oximetry 03/26/21 11:35 Temperature 98.8 F Pulse Rate 76 Respiratory 18 Rate Blood Pressure 136/45 O2 Sat by Pulse 98 Oximetry - Labs CBC & Chem 7: 03/26/21 10:24 03/26/21 05:22 Labs: Abnormal lab results 03/25/21 03/25/21 03/25/21 Range/Units 11:01 16:28 19:04 WBC (4.5-11.0) K/mm3 RBC (3.65-5.03) M/mm3 Hgb (10.1-14.3) gm/dl Hct (30.3-42.9) % RDW (13.2-15.2) % Plt Count (140-440) K/mm3 Sodium (137-145) mmol/L BUN (7-17) mg/dL Creatinine (0.6-1.2) mg/dL Glucose (65-100) mg/dL POC Glucose 249 H 227 H (70-105) mg/dL Calcium (8.4-10.2) mg/dL Alkaline Phosphatase (35-129) units/L C-Reactive Protein 26.30 H (0.00-1.30) mg/dL Total Protein (6.3-8.2) g/dL Albumin (3.9-5) g/dL 03/25/21 03/26/21 03/26/21 Range/Units 20:48 05:22 10:24 WBC 31.0 H (4.5-11.0) K/mm3 RBC 2.91 L (3.65-5.03) M/mm3 Hgb 8.1 L (10.1-14.3) gm/dl Hct 24.7 L (30.3-42.9) % RDW 16.8 H (13.2-15.2) % Plt Count 502 H (140-440) K/mm3 Sodium 132 L (137-145) mmol/L BUN 35 H (7-17) mg/dL Creatinine 1.6 H (0.6-1.2) mg/dL Glucose 195 H (65-100) mg/dL POC Glucose 217 H (70-105) mg/dL Calcium 7.6 L (8.4-10.2) mg/dL Alkaline Phosphatase 198 H (35-129) units/L C-Reactive Protein (0.00-1.30) mg/dL Total Protein 6.1 L (6.3-8.2) g/dL Albumin 1.9 L (3.9-5) g/dL
[2021-03-26] MEDS: HYDROcodone/ACETAMINOPHEN 5-325 MG TAB PO PRN (14:13)
--- NOTE | 2021-03-26 14:20 | Hem/Onc Consultation ---
History of Present Illness - History of Present Illness heme/onc televisit consult 75yo woman admitted after falling admitted for severe R hip pain can barely walk says she has had same debra for months found to have high plt and WBC and elevated alk phos DATA REVIEWED BELOW R hip X ray neg for fracture IMP: presumed myeloproliferative disorder doubt heme malignancy severe R hip pain with abn imaging, maybe inflammation or fluid or blood this could be inflam/gout related to MPD r/o fracture solid tumor malignancy is a possibility REC: no Hydroxyurea yet will consider bone marrow biopsy to look for myelofibrosis try for R hip MRI if she can tolerate it consier nuclear bone scan opiate meds for pain steroid pulse IV abd prescribed in case this is abscess labs to include iron testing, JAK2 mutation, BCR-ABL hgb electrophoresis, SPEP Active Medications Acetaminophen (Acetaminophen 325 Mg Tab) 650 mg PO Q4H PRN PRN Reason: Pain MILD(1-3)/Fever >100.5/GUAJARDO Last Admin: 03/25/21 10:56 Dose: 650 mg Documented by: Hydrocodone Bitart/Acetaminophen (Hydrocodone/Acetaminophen 5-325 Mg Tab) 2 each PO Q6H PRN PRN Reason: Pain, Moderate (4-6) Last Admin: 03/26/21 14:13 Dose: 2 each Documented by: Atorvastatin Calcium (Atorvastatin 40 Mg Tab) 40 mg PO QHS PHONG Last Admin: 03/25/21 21:06 Dose: 40 mg Documented by: Enoxaparin Sodium (Enoxaparin 40 Mg/0.4 Ml Inj) 40 mg SUB-Q QDAY@2200 PHONG; Protocol Last Admin: 03/25/21 21:06 Dose: 40 mg Documented by: Hydralazine HCl (Hydralazine 20 Mg/1 Ml Inj) 5 mg IV Q30MIN PRN PRN Reason: Hypertension Sodium Chloride (Nacl 0.9% 1000 Ml) 1,000 mls @ 100 mls/hr IV DIRECT PHONG Last Admin: 03/25/21 11:04 Dose: 100 mls/hr Documented by: Piperacillin Sod/Tazobactam Sod (Zosyn/Ns 2.25 Gm/50ml) 2.25 gm in 50 mls @ 100 mls/hr IV Q6HR PHONG Lorazepam (Lorazepam 2 Mg/Ml Vial) 2 mg IV ONCE ONE Stop: 03/26/21 15:01 Methylprednisolone Sodium Succinate (Methylprednisolone Sod Succinate 125 Mg/2 Ml Inj) 60 mg IV Q12H PHONG Stop: 03/28/21 14:59 Ondansetron HCl (Ondansetron 4 Mg/2 Ml Inj) 4 mg IV Q8H PRN PRN Reason: Nausea And Vomiting Last Admin: 03/25/21 18:18 Dose: 4 mg Documented by: Laboratory Last Values WBC 31.0 K/mm3 (4.5-11.0) H 03/26/21 10:24 Hgb 8.1 gm/dl (10.1-14.3) L 03/26/21 10:24 Hct 24.7 % (30.3-42.9) L 03/26/21 10:24 Plt Count 502 K/mm3 (140-440) H 03/26/21 10:24 Seg Neuts % (Manual) 89.0 % (40.0-70.0) H 03/25/21 00:16 Band Neutrophils % 1.0 % 03/25/21 00:16 Lymphocytes % (Manual) 6.0 % (13.4-35.0) L 03/25/21 00:16 Monocytes % (Manual) 4.0 % (0.0-7.3) 03/25/21 00:16 ESR > 140.0 mm/Hr (0-20) 03/25/21 19:04 Creatinine 1.6 mg/dL (0.6-1.2) H 03/26/21 05:22 Calcium 7.6 mg/dL (8.4-10.2) L 03/26/21 05:22 Indirect Bilirubin 0.2 mg/dL 03/24/21 21:46 AST 27 units/L (5-40) 03/26/21 05:22 ALT 27 units/L (7-56) 03/26/21 05:22 Alkaline Phosphatase 198 units/L (35-129) H 03/26/21 05:22 Lactate Dehydrogenase 119 units/L (91-180) 03/26/21 05:22 C-Reactive Protein 26.30 mg/dL (0.00-1.30) H 03/25/21 19:04 Nasal Screen MRSA (PCR) Negative (Negative) 03/25/21 09:54 Medications and Allergies Allergies Allergy/AdvReac Type Severity Reaction Status Date / Time No Known Allergies Allergy Verified 03/24/21 21:46 Home Medications Medication Instructions Recorded Confirmed Last Taken Type Amlodipine Besylate [Norvasc] 10 mg PO DAILY 03/25/21 03/25/21 03/24/21 10:00 History AtorvaSTATin [Lipitor] 40 mg PO QHS 03/25/21 03/25/21 03/24/21 21:00 History Diclofenac 1% [Diclofenac 1% 100 gm TP QID 03/25/21 03/25/21 03/24/21 21:00 History topical gel] Gabapentin [Neurontin] 100 mg PO DAILY 03/25/21 03/25/21 03/24/21 21:00 History Nitrofurantoin Macrocrystal 100 mg PO BID 03/25/21 03/25/21 03/24/21 21:00 History [Nitrofurantoin] hydroCHLOROthiazide [HCTZ] 25 mg PO DAILY 03/25/21 03/25/21 03/24/21 10:00 His tory lisinopriL [Zestril TAB] 40 mg PO QDAY 03/25/21 03/25/21 03/24/21 10:00 History metFORMIN [Glucophage] 500 mg PO BID 03/25/21 03/25/21 03/24/21 17:00 History Active Meds: Active Medications Acetaminophen (Acetaminophen 325 Mg Tab) 650 mg PO Q4H PRN PRN Reason: Pain MILD(1-3)/Fever >100.5/GUAJARDO Last Admin: 03/25/21 10:56 Dose: 650 mg Documented by: Hydrocodone Bitart/Acetaminophen (Hydrocodone/Acetaminophen 5-325 Mg Tab) 2 each PO Q6H PRN PRN Reason: Pain, Moderate (4-6) Last Admin: 03/26/21 14:13 Dose: 2 each Documented by: Atorvastatin Calcium (Atorvastatin 40 Mg Tab) 40 mg PO QHS PHONG Last Admin: 03/25/21 21:06 Dose: 40 mg Documented by: Enoxaparin Sodium (Enoxaparin 40 Mg/0.4 Ml Inj) 40 mg SUB-Q QDAY@2200 PHNOG; Protocol Last Admin: 03/25/21 21:06 Dose: 40 mg Documented by: Hydralazine HCl (Hydralazine 20 Mg/1 Ml Inj) 5 mg IV Q30MIN PRN PRN Reason: Hypertension Sodium Chloride (Nacl 0.9% 1000 Ml) 1,000 mls @ 100 mls/hr IV DIRECT PHONG Last Admin: 03/25/21 11:04 Dose: 100 mls/hr Documented by: Piperacillin Sod/Tazobactam Sod (Zosyn/Ns 2.25 Gm/50ml) 2.25 gm in 50 mls @ 100 mls/hr IV Q6HR PHONG Lorazepam (Lorazepam 2 Mg/Ml Vial) 2 mg IV ONCE ONE Stop: 03/26/21 15:01 Methylprednisolone Sodium Succinate (Methylprednisolone Sod Succinate 125 Mg/2 Ml Inj) 60 mg IV Q12H PHONG Stop: 03/28/21 14:59 Ondansetron HCl (Ondansetron 4 Mg/2 Ml Inj) 4 mg IV Q8H PRN PRN Reason: Nausea And Vomiting Last Admin: 03/25/21 18:18 Dose: 4 mg Documented by: Exam - Constitutional Vitals: Last Vital Signs Temp 98.8 F 03/26/21 11:35 Pulse 76 03/26/21 11:35 Resp 18 03/26/21 11:35 BP 136/45 03/26/21 11:35 Pulse Ox 98 03/26/21 11:35 Results - Labs lab Results: Laboratory Results - last 24 hr 03/24/21 03/25/21 03/25/21 21:46 09:54 11:01 WBC RBC Hgb Hct MCV MCH MCHC RDW Plt Count Pathologist Review WBC Morphology Not Reportable ESR Sodium Potassium Chloride Carbon Dioxide Anion Gap BUN Creatinine Estimated GFR BUN/Creatinine Ratio Glucose POC Glucose 249 H Calcium Total Bilirubin AST ALT Alkaline Phosphatase Lactate Dehydrogenase C-Reactive Protein Total Protein Albumin Albumin/Globulin Ratio Nasal Screen MRSA (PCR) Negative 03/25/21 03/25/21 03/25/21 16:28 19:04 19:04 WBC RBC Hgb Hct MCV MCH MCHC RDW Plt Count Pathologist Review WBC Morphology ESR > 140.0 Sodium Potassium Chloride Carbon Dioxide Anion Gap BUN Creatinine Estimated GFR BUN/Creatinine Ratio Glucose POC Glucose 227 H Calcium Total Bilirubin AST ALT Alkaline Phosphatase Lactate Dehydrogenase C-Reactive Protein 26.30 H Total Protein Albumin Albumin/Globulin Ratio Nasal Screen MRSA (PCR) 03/25/21 03/26/21 03/26/21 20:48 05:22 10:24 WBC 31.0 H RBC 2.91 L Hgb 8.1 L Hct 24.7 L MCV 85 MCH 28 MCHC 33 RDW 16.8 H Plt Count 502 H Pathologist Review WBC Morphology ESR Sodium 132 L Potassium 4.7 Chloride 99.1 Carbon Dioxide 22 Anion Gap 16 BUN 35 H Creatinine 1.6 H Estimated GFR 31 BUN/Creatinine Ratio 22 Glucose 195 H POC Glucose 217 H Calcium 7.6 L Total Bilirubin 0.30 AST 27 ALT 27 Alkaline Phosphatase 198 H Lactate Dehydrogenase 119 C-Reactive Protein Total Protein 6.1 L Albumin 1.9 L Albumin/Globulin Ratio 0.5 Nasal Screen MRSA (PCR)
[2021-03-26] MEDS ORDERED: LORazepam 2 MG/ML VIAL IV ONE (15:00)
[2021-03-26] MEDS ORDERED: HYDROmorphone 1 MG/1 ML INJ IV PRN (15:00)
[2021-03-26] MEDS: PIPERACIL-TAZO 2.25 GM/50 ML 2.25 GM/50 ML BAG IV SCH ×2 (16:53→18:34)
[2021-03-26] MEDS: methylPREDNISolone Sod Succinate 125 MG/2 ML INJ IV SCH (17:40)
[2021-03-26] MEDS ORDERED: LORazepam 2 MG/ML VIAL IV NR (17:47)
[2021-03-26] MEDS: INSULIN REGULAR, HUMAN 100 UNITS/1 ML SUB-Q SCH (21:38)
[2021-03-26] MEDS: ENOXAPARIN 40 MG/0.4 ML INJ SUB-Q SCH (21:38)
[2021-03-26] MEDS: SODIUM CHLORIDE 0.9% 1000 ML 1,000 ML IV SCH (21:39)
[2021-03-27] MEDS: PIPERACIL-TAZO 2.25 GM/50 ML 2.25 GM/50 ML BAG IV SCH ×5 (00:07→23:33)
[2021-03-27] MEDS: methylPREDNISolone Sod Succinate 125 MG/2 ML INJ IV SCH ×2 (02:15→18:17)
--- NOTE | 2021-03-27 03:47 | Consultation ---
DATE OF CONSULTATION: 03/26/2021 PULMONARY CONSULTATION NOTE CONSULTING PHYSICIAN: Dr. Krause. REASON FOR CONSULTATION: Hypotension with possible sepsis. CHIEF COMPLAINT AND HISTORY OF PRESENT ILLNESS: As follows: The patient is a 75-year-old female with past medical history significant amongst other things for a diagnosis of cervical cancer, which is apparently now in remission per history, but also diabetes. She is also obese. She was brought into the emergency room by emergency medical services after she fell in the bathroom. She states that she just tripped, fell, and hit her head on the edge of the toilet bowl. She denied any loss of consciousness. She apparently had, had a prior fall before that, but she did not let anybody know about before. Since the fall, she had been complaining of bilateral hip pain, right shoulder pain and to me, right knee pain. She denied any palpitations prior to the fall. She denied any prodromal symptoms. In the emergency room, she had an EKG that was unremarkable. CT of the spine and brain were unremarkable and a pelvic x-ray was negative for any acute findings. She did have a leukocytosis of 34,000. She, according to the records, had an episode of hypotension also in the emergency room, hence the consult. We are asked to assist with management. When I stopped by to see her, she was resting peacefully in bed. She remained on supplemental oxygen. She was on 4 liters of supplemental oxygen. She denied any chest pain. She did complain of some dysuria. She states she had a cough that was nonproductive. She denied any sick contacts or known contacts with anyone with COVID-19 infection. Denies any new-onset leg pain or swelling, either unilaterally or bilaterally or any suggestion of venous thromboembolic phenomenon. This really is as much of the history of presentation as I have. PAST MEDICAL HISTORY: 1. Again, significant for cervical cancer, in remission. 2. Hypertension. 3. Diabetes type 2. 4. Obesity. PAST SURGICAL HISTORY: She has had tubal ligation surgery in the past and some other pelvic surgery. She is not sure about. MEDICATIONS: She was on at the time I stopped by to see her, according to the medication administration record included the following: Tylenol 650 mg p.o. q. 4 hours p.r.n. mild pain or fevers, [place] 5/325 two tablets p.o. q. 6 hours p.r.n. moderate pain, Lipitor 40 mg p.o. at bedtime, Lovenox 40 mg subq daily, Dilaudid 1 mg IV q. 2 hours p.r.n. severe pain, Solu-Medrol 60 mg IV q. 12 hours, Zofran 4 mg IV q. 8 hours p.r.n. nausea and vomiting, Zosyn 2.25 grams IV q. 6 hours. ALLERGIES: No known drug allergies. DIET: Obese lady, denies acute weight loss or gain in the preceding few weeks to months. FAMILY AND SOCIAL HISTORY: Lives in the community. Denies alcohol, tobacco or illicit drug use or abuse. FAMILY HISTORY: Positive for hypertension and heart disease. REVIEW OF SYSTEMS: No loss of consciousness. No new onset seizures. No new onset focal weakness. She did have the falls, but denied loss of consciousness. Denies gross hematochezia or melena. Denies gross hematuria. She did admit to dysuria. She has a cough with a nonbloody expectoration. She denies polydipsia, polyuria. Denies heat or cold intolerance. Denied palpitations. Complete 13 system review of system was obtained. Pertinent positives and/or negatives as in body of history above, otherwise they are noncontributory. PHYSICAL EXAMINATION: VITAL SIGNS: At presentation, she was afebrile, temperature 98.0 degrees Fahrenheit with a pulse of 79, respiratory rate of 14, blood pressure 118/35, O2 sats were 97%. Inspired oxygen concentration at that time was not recorded. She has had a T-max of about 99.1 since she has been admitted and when I saw her, her O2 sats were in __, but that was on 4 liters nasal cannula. GENERAL: She is an elderly obese female. Normocephalic, atraumatic. Resting in bed, but talking with me with mildly increased respiratory effort at rest. HEAD, EYES, EARS, NOSE, AND THROAT: Anicteric. No conjunctival erythema. Oropharynx was moist. Mallampati II, oropharynx. NECK: No jugular venous distention. No thyromegaly. Grossly, there were no palpable lymph nodes in the supraclavicular or submandibular lymph node chains. LUNGS: Auscultation of both lung valenzuela significant for slightly diminished bilateral breath sounds, however, clear. No wheezing. Slightly prolonged expiratory phase. HEART: Sounds 1 and 2 are heard. Regular rate and rhythm at the time of my evaluation without overt rubs or murmurs. ABDOMEN: Soft, nontender. Bowel sounds are positive, protuberant, but no palpable hepatosplenomegaly. EXTREMITIES: Without overt digital clubbing or cyanosis. No pedal edema. Pedal pulses are 2+ bilaterally. She has some tenderness over the right knee without any swelling. NEUROLOGIC: Pupils are equal, round, about 4 mm, reactive to light. Extraocular muscle movements were intact. She moves all 4 extremities spontaneously. SKIN: Normal turgor in the areas examined without overt cellulitis or rash. Please see the wound care nurses' notes for full description of her skin. Mood was Normal. Affect was appropriate. She had intact judgment and insight. LABORATORY DATA: From my review are as follows: White cell count at presentation 31,400; hemoglobin 7.8; hematocrit 23.6; platelet count 548; 2% band forms on the manual differential. INR 1.20. Serum sodium was 126, potassium 4.5, chloride 91, bicarbonate was 24, BUN 34, creatinine 1.2, glucose was 228, AST 46, albumin 2.4. Otherwise, liver function tests essentially within normal limits. CRP elevated at 26.3. Procalcitonin elevated, but slightly at 1.17. Urinalysis was negative for nitrites and leukocyte esterase, 5 white cells per high power field. Nasal screen for MRSA PCR was negative. Two sets of blood cultures, no growth to date as far as I can tell. Chest x-ray was done. I have reviewed the images as well as the radiologist's interpretation. No clear focal infiltrate. She does have cardiomegaly. I cannot rule out a small left pleural effusion. It could be soft tissue shadows. No gross pneumothorax. No gross bony fracture. CT scan of the head at presentation was negative. CT scans of the neck negative. X-rays of the pelvis negative. X-rays of the shoulder, no acute fracture or subluxation. CT of the abdomen and pelvis shows a soft tissue injury of the right pelvis without underlying bony injury and noninflamed colonic diverticulosis that was described as being mild. ASSESSMENT: 1. Acute hypoxemic respiratory failure. 2. Status post fall without acute fracture. 3. Leukocytosis, etiology unclear. 4. History of cervical cancer. 5. Diabetes type 2. 6. Systemic inflammatory response syndrome. PLAN: Again, the etiology of her overall presentation is unclear. I do feel that it is appropriate to empirically treat her with antibiotic therapy. Follow culture until the final result. She does have a significant leukocytosis and with the hypotension at presentation, she could be in early sepsis. I will defer to the infectious disease physician for further management. While the CRP level is elevated, procalcitonin level is really not impressive. Consideration should be given for COVID-19 infection depending on her immunization status. Again, especially with a history of prior malignancy, I do agree with hematology/oncology consult to make sure that there is not of blood dyscrasia going on here, especially with her leukocytosis and thrombocytosis. Oxygen will be weaned to keep sats greater than or equal to about 90%. Aspiration precautions will be maintained in particular because of her history. I do think that it is important that we rule out venous thromboembolic disorder. She did have CT of the abdomen and pelvis apparently, but certainly another a chest CT angiogram. I note, her acute kidney injury with a serum creatinine now at 1.6. This has been new since she has been admitted. I will start with bilateral lower extremity Dopplers with a plan to get a CT angiogram; however, I will give her gentle hydration in the short term to see if we can get her BUN and creatinine, looking that before we go ahead and get followup venous thromboembolic disorder testing. She is appropriately on GI prophylaxis as well as DVT prophylaxis. Flu and pneumonia vaccination will be addressed per protocol. Thank you very much for the consult. We will follow along and make further recommendations as picture progresses/becomes clearer. TID: [id number] RECEIPT: [id number] OSMEL/ROB LARES
[2021-03-27 06:44] LABS: Calcium 7.9 mg/dL (8.4-10.2)
[2021-03-27 06:51] LABS: Uric Acid 7.3 mg/dL (3.5-7.6)
[2021-03-27] MEDS: INSULIN REGULAR, HUMAN 100 UNITS/1 ML SUB-Q SCH ×4 (09:12→21:43)
[2021-03-27] MEDS ORDERED: SODIUM POLYSTYRENE 15 GM/60 ML ORAL LIQD PO PRN (10:00)
--- NOTE | 2021-03-27 11:15 | Magnetic Resonance Report ---
MR lumbar spine wo con INDICATION / CLINICAL INFORMATION: 75 years Female; MAIN. TECHNIQUE: Multisequence, multiplanar images of the lumbar spine were obtained. COMPARISON: None available. FINDINGS: ALIGNMENT: The motion significantly degrades the image quality despite repeat imaging. However, there is 5 mm of anterolisthesis at L5-S1 with findings indicative of bilateral spondylolysis. There are n otable a endplate erosive the changes with peripheral decreased signal indicative of sclerosis and as sociated pronounced degenerative findings. Furthermore, there is fluid signal within the disc space w hich is also likely on an advanced degenerative basis though correlation would be needed for infectio us process given the history. No epidural or paraspinal fluid collections are identified. VERTEBRAE:There is relative increase signal involving L5 vertebrae and visualized sacrum which may be seen with post radiation changes. There is no reported history of primary neoplasm. There are modera te to degenerative the endplate changes at L2-3 without significant edema. Findings are most consiste nt with incidental hemangioma within the visualized T10 vertebral body. VISUALIZED SPINAL CORD: The distalmost spinal cord grossly demonstrate appropriate signal intensity a nd terminates at L1. [id number] ANALYSIS: L1-2: No significant abnormality. L2-3: The spondylosis and facet joint hypertrophy contribute to mild degree of spinal stenosis. Addit ionally, there is milder to moderate neural foraminal narrowing bilaterally. L3-4: The disc bulge mildly flattens the ventral thecal sac at. There is mild left neural foraminal n arrowing. L4-5: The disc bulge appears to slightly flatten the ventral thecal sac. The facet joint hypertrophy is greater on the left with foraminal narrowing which encroaches on the exiting left L4 nerve root sh eath. L5-S1: The hypertrophic changes encroach on the lateral recesses. Additionally, there is marked neura l from narrowing with deformity of the exiting L5 nerve root sheaths bilaterally. PARASPINAL SOFT TISSUES: No significant abnormality. ADDITIONAL FINDINGS: No epidural collections are identified. IMPRESSION: 1. There is 5 mm of anterolisthesis at L5-S1 with findings most consistent with pronounced degenerati ve changes as detailed above. Additionally, there is marked neural from narrowing with deformity of t he exiting L5 nerve root sheaths bilaterally. 2. The degenerative changes at L4-5 are greater on the left with encroachment on the exiting left L4 nerve root sheath. 3. There is mild spinal stenosis and mild to moderate foraminal narrowing at L2-3. Signer Name: Azar Rg MD Signed: 03/27/2021 11:11 AM Workstation Name: [id number]
--- NOTE | 2021-03-27 11:51 | Magnetic Resonance Report ---
MRI PELVIS WITHOUT CONTRAST INDICATION / CLINICAL INFORMATION: Leukocytosis. COMPARISON: CT abdomen pelvis 03/25/2021 TECHNIQUE: Multisequence, multiplanar images were obtained. FINDINGS: BONES: Ill-defined bone marrow edema posterior ischium and posterior: Right acetabulum could represe nt underlying contusion or chronic nonaggressive lesion. No fracture. No osseous lesion. SACROILIAC JOINT(S): Moderate right and mild left SI joint degenerative arthrosis with associated sub chondral cystic changes RIGHT HIP JOINT: No significant abnormality. LEFT HIP JOINT: No significant abnormality. GLUTEAL MUSCLES/TENDONS: No significant abnormality. PROXIMAL HAMSTRING TENDONS: Mild tendinosis GROIN MUSCLES/TENDONS: High-grade tear right obturatur internus axial image 18. Complete complete tea r right quadratus femoris with marked narrowing of ischiofemoral interval mild grade 1 strains both a dductor tendons, piriformis and right radius maximiliano muscles. There is less soft tissue swelling/cuong terrance involving the right piriformis muscle since recent CT 2 days ago. SUBCUTANEOUS SOFT TISSUES: No significant abnormality. LOWER LUMBAR SPINE: No significant abnormality of visualized lower lumbar spine. SOFT TISSUE WITHIN PELVIS: No significant abnormality. ADDITIONAL FINDINGS: None. IMPRESSION: 1. Near complete or complete tear right obturator internis muscle with resolving strains and hematoma within right piriformis. 2. Right ischiofemoral impingement with complete tear quadratus femoris 3. Bilateral sacroiliitis Signer Name: Hernesto Mckeon MD Signed: 03/27/2021 11:47 AM Workstation Name: [email or web address]
--- NOTE | 2021-03-27 12:20 | Progress Note ---
Assessment and Plan Status post fall -CT head without any acute process -Patient has no focal deficit -Continue to monitor clinically and PT eval when clinically more stable Severe pelvic pain -Likely traumatic following fall -CT abdomen pelvis x-ray soft tissue injury without any sign of fracture -Pain management as needed - Ordered for pelvic and lumbar spine MRI Leukocytosis with WBC > 31K -We will place patient on empiric antibiotic -We will consult ID and obtain alejandre culture -Heme-onc on board for malignancy focus myeloproliferative disorder -Ordered bone scan for possible malignancy GREGOR, vasomotor nephropathy -Continue gentle IV fluid hydration, BMP daily -Consult nephrology, avoid nephrotoxins DM type 2 -Consistent carb diet placed on SSI, ordered A1c and nephrology paged Hyponatrenia, likely due to dehydration, continue IV fluid Hypotensive episode, resolved following IV fluid boluses Normocytic anemia with thrombocytosis -Monitor H&H follow clinically -Heme-onc on board Hypotension, likely from dehydration continue IV fluid DVT prophylaxis with Lovenox Daily clinical course: 03/25/21: Following admission patient noted to be hypotensive, given IV fluid boluses and continued fluid with maintenance rate. Plan to transfer to ICU to start on pressor if BP does not improve with fluid challenge. 03/26/21: Patient continues to complains of pelvic pain. Noted to have CVA te nderness over the right ischeal tuberosity. Will Obtain pelvic MRI with contrast and lumbar spine MRI evaluation for possible epidural abscess, discitis, rectal ischial abscess, continue empiric antibiotics for now, ID following. Heme-onc consulted possible underlying myeloproliferative disorder we will follow pending labs- 03/27: Cr trending up - consult nephrology, MRI pelvis pending, ordered bone scan per heam recommendation. started on steroid. follow BMP, trend Cr Subjective Date of service: 03/27/21 Principal diagnosis: Leukocytosis Interval history: Patient seen and examined. Medical records and medication list reviewed. No acute event overnight noted by the RN. Patient continue to complain of severe pelvic pain Creatinine continues to trend up, discussed plan of care with Dr. Cruz Discussed plan of care at bedside with patient. Objective - Exam Narrative Exam: GENERAL: well-developed and well-nourished elderly female appears in moderate distress HEENT: Normocephalic. Atraumatic. No conjunctival congestion or icterus. Patient has moist mucous membranes. NECK: Supple. Trachea midline. CHEST/LUNGS: Clear to auscultated bilaterally, breathing nonlabored. No wheezes crackles or rhonchi. HEART/CARDIOVASCULAR: Regular in rate and rhythm. S1 and S2 positive. ABDOMEN: Abdomen is soft, nontender. Patient has normal bowel sounds. SKIN: There is no rash. Warm and dry. NEURO: No focal motor deficit. Follows command. MUSCULOSKELETAL: No joint effusion or tenderness. tenderness over the pelvic floor area EXTRIMITY: No edema, no cyanosis or clubbing. PSYCH: Cooperative. - Constitutional Vitals: Vital Signs - 12hr 03/27/21 03:57 Temperature 97.9 F Pulse Rate 64 Respiratory 16 Rate Blood Pressure 134/45 O2 Sat by Pulse 96 Oximetry - Labs CBC & Chem 7: 03/28/21 04:27 03/29/21 05:09 Labs: Abnormal lab results 03/26/21 03/26/21 03/26/21 Range/Units 16:15 18:36 18:40 D-Dimer 3944.31 H (0-234) ng/mlDDU POC ABG pO2 62.7 L (83-108) mmHg ABG Hemoglobin 7.7 L (12.0-17.5) ABG Oxyhemoglobin 90.5 L (94-98) ABG Sodium 124.6 L (136.0-145.0) mmol/L ABG Potassium 4.8 H (3.40-4.50) mmol/L ABG Glucose 275 H (65-95) mg/dL Sodium (137-145) mmol/L Potassium (3.6-5.0) mmol/L Chloride (98-107) mmol/L Carbon Dioxide (22-30) mmol/L BUN (7-17) mg/dL Creatinine (0.6-1.2) mg/dL Glucose (65-100) mg/dL POC Glucose 187 H (70-105) mg/dL Hemoglobin A1c (4-6) % Calcium (8.4-10.2) mg/dL Iron (37-170) ug/dL TIBC (250-450) mcg/dL Ferritin (10.0-200.0) ng/mL Arterial Blood Glucose 275 H (65-95) mg/dL Arterial Blood Ionized Calcium 4.4 L (4.6-5.3) mg/dL 03/26/21 03/27/21 03/27/21 Range/Units 21:03 04:44 04:44 D-Dimer (0-234) ng/mlDDU POC ABG pO2 (83-108) mmHg ABG Hemoglobin (12.0-17.5) ABG Oxyhemoglobin (94-98) ABG Sodium (136.0-145.0) mmol/L ABG Potassium (3.40-4.50) mmol/L ABG Glucose (65-95) mg/dL Sodium (137-145) mmol/L Potassium (3.6-5.0) mmol/L Chloride (98-107) mmol/L Carbon Dioxide (22-30) mmol/L BUN (7-17) mg/dL Creatinine (0.6-1.2) mg/dL Glucose (65-100) mg/dL POC Glucose 246 H (70-105) mg/dL Hemoglobin A1c (4-6) % Calcium (8.4-10.2) mg/dL Iron 18 L (37-170) ug/dL TIBC 107 L (250-450) mcg/dL Ferritin 1071.0 H (10.0-200.0) ng/mL Arterial Blood Glucose (65-95) mg/dL Arterial Blood Ionized Calcium (4.6-5.3) mg/dL 03/27/21 03/27/21 03/27/21 Range/Units 04:44 04:44 07:50 D-Dimer (0-234) ng/mlDDU POC ABG pO2 (83-108) mmHg ABG Hemoglobin (12.0-17.5) ABG Oxyhemoglobin (94-98) ABG Sodium (136.0-145.0) mmol/L ABG Potassium (3.40-4.50) mmol/L ABG Glucose (65-95) mg/dL Sodium 129 L (137-145) mmol/L Potassium 5.6 H (3.6-5.0) mmol/L Chloride 97.4 L (98-107) mmol/L Carbon Dioxide 18 L (22-30) mmol/L BUN 37 H (7-17) mg/dL Creatinine 1.9 H (0.6-1.2) mg/dL Glucose 260 H (65-100) mg/dL POC Glucose 281 H (70-105) mg/dL Hemoglobin A1c 9.9 H (4-6) % Calcium 7.9 L (8.4-10.2) mg/dL Iron (37-170) ug/dL TIBC (250-450) mcg/dL Ferritin (10.0-200.0) ng/mL Arterial Blood Glucose (65-95) mg/dL Arterial Blood Ionized Calcium (4.6-5.3) mg/dL
--- NOTE | 2021-03-27 13:09 | Vascular Lab Report ---
DUPLEX DOPPLER LOWER EXTREMITY VEINS, BILATERAL INDICATION / CLINICAL INFORMATION: pain. TECHNIQUE: Duplex doppler imaging was performed through the veins of both lower extremities using venous emerita david and other maneuvers. COMPARISON: None available. FINDINGS: RIGHT COMMON FEMORAL VEIN: Negative. RIGHT FEMORAL VEIN: Negative. RIGHT POPLITEAL VEIN: Negative. RIGHT CALF VEINS: Negative. LEFT COMMON FEMORAL VEIN: Negative. LEFT FEMORAL VEIN: Negative. LEFT POPLITEAL VEIN: Negative. LEFT CALF VEINS: Negative. ADDITIONAL FINDINGS: None. IMPRESSION: 1. No sonographic evidence for DVT in either lower extremity. Signer Name: Hernesto Mckeon MD Signed: 03/27/2021 1:04 PM Workstation Name: [id number]
--- NOTE | 2021-03-27 13:19 | Consultation ---
History of Present Illness - Reason for Consult Consult date: 03/27/21 acute renal failure - History of Present Illness The patient is 75 YO female with history significant for DM type 2, HTN and cervical cancer in remission who was brought to [facility] ED 03/24 via EMS from home for evaluation after a fall. Unable to btain any history from patient and there was no family member at the bedside. Patient tripped and fell and hit her head on the edge of the toilet bowl. Patient denied any loss of consciousness. Patient's son stated that patient had another fall prior. Since the fall she was complaining of bilateral hip pain right shoulder pain and headache. Patient denied any symptoms prior to the fall. CT brain and CT cervical spine was unremarkable. Pelvic X-ray negative for acute finding. Chest x-ray was unremarkable. Labs; wbc 34k, creat 1.9, BUN 37, K 5.6 and bicarb 18. Neph rology was consulted for further evaluation and management. Medications and Allergies Allergies Allergy/AdvReac Type Severity Reaction Status Date / Time No Known Allergies Allergy Verified 03/24/21 21:46 Home Medications Medication Instructions Recorded Confirmed Last Taken Type Amlodipine Besylate [Norvasc] 10 mg PO DAILY 03/25/21 03/25/21 03/24/21 10:00 History AtorvaSTATin [Lipitor] 40 mg PO QHS 03/25/21 03/25/21 03/24/21 21:00 History Diclofenac 1% [Diclofenac 1% 100 gm TP QID 03/25/21 03/25/21 03/24/21 21:00 History topical gel] Gabapentin [Neurontin] 100 mg PO DAILY 03/25/21 03/25/21 03/24/21 21:00 History Nitrofurantoin Macrocrystal 100 mg PO BID 03/25/21 03/25/21 03/24/21 21:00 Hi story [Nitrofurantoin] hydroCHLOROthiazide [HCTZ] 25 mg PO DAILY 03/25/21 03/25/21 03/24/21 10:00 History lisinopriL [Zestril TAB] 40 mg PO QDAY 03/25/21 03/25/21 03/24/21 10:00 History metFORMIN [Glucophage] 500 mg PO BID 03/25/21 03/25/21 03/24/21 17:00 History Insulin NPH/Regular [NovoLIN 70/30] 10 units SQ BID 03/26/21 03/26/21 Unknown History Active Meds: Active Medications Acetaminophen (Acetaminophen 325 Mg Tab) 650 mg PO Q4H PRN PRN Reason: Pain MILD(1-3)/Fever >100.5/GUAJARDO Last Admin: 03/25/21 10:56 Dose: 650 mg Documented by: Hydrocodone Bitart/Acetaminophen (Hydrocodone/Acetaminophen 5-325 Mg Tab) 2 each PO Q6H PRN PRN Reason: Pain, Moderate (4-6) Last Admin: 03/26/21 14:13 Dose: 2 each Documented by: Atorvastatin Calcium (Atorvastatin 40 Mg Tab) 40 mg PO QHS PHONG Last Admin: 03/26/21 21:38 Dose: 40 mg Documented by: Enoxaparin Sodium (Enoxaparin 40 Mg/0.4 Ml Inj) 40 mg SUB-Q QDAY@2200 PHONG; Protocol Last Admin: 03/26/21 21:38 Dose: 40 mg Documented by: Hydralazine HCl (Hydralazine 20 Mg/1 Ml Inj) 5 mg IV Q30MIN PRN PRN Reason: Hypertension Hydromorphone HCl (Hydromorphone 1 Mg/1 Ml Inj) 1 mg IV Q2H PRN PRN Reason: Pain , Severe (7-10) Sodium Chloride (Nacl 0.9% 1000 Ml) 1,000 mls @ 100 mls/hr IV DIRECT PHONG Last Admin: 03/26/21 21:39 Dose: 100 mls/hr Documented by: Piperacillin Sod/Tazobactam Sod (Zosyn/Ns 2.25 Gm/50ml) 2.25 gm in 50 mls @ 100 mls/hr IV Q6HR [facility] Last Admin: 03/27/21 13:05 Dose: Not Given Documented by: Insulin Human Regular (Insulin Regular, Human 100 Units/1 Ml) 0 units SUB-Q ACHS [facility]; Protocol Last Admin: 03/27/21 09:12 Dose: Not Given Documented by: Lorazepam (Lorazepam 2 Mg/Ml Vial) 2 mg IV DATA CONVERSION ANALYST NR Stop: 03/27/21 17:46 Last Admin: 03/27/21 08:59 Dose: 2 mg Documented by: Methylprednisolone Sodium Succinate (Methylprednisolone Sod Succinate 125 Mg/2 Ml Inj) 60 mg IV Q12H PHONG Stop: 03/28/21 14:59 Last Admin: 03/27/21 02:15 Dose: 60 mg Documented by: Ondansetron HCl (Ondansetron 4 Mg/2 Ml Inj) 4 mg IV Q8H PRN PRN Reason: Nausea And Vomiting Last Admin: 03/25/21 18:18 Dose: 4 mg Documented by: Sodium Bicarbonate (Sodium Bicarbonate 650 Mg Tab) 650 mg PO BID PHONG Sodium Polystyrene Sulfonate (Sodium Polystyrene 15 Gm/60 Ml Oral Liqd) 15 gm PO Q6H PRN PRN Reason: Hyperkalemia Exam - Vital Signs Vital signs: Vital Signs Temp Pulse Resp BP Pulse Ox 98.0 F 79 14 118/35 97 03/24/21 21:30 03/24/21 21:30 03/24/21 21:30 03/24/21 21:30 03/24/21 21:30 Results - Lab Results 03/27/21 17:38 03/27/21 17:38 Most recent lab results ABG pH 7.364 (7.320-7.450) 03/26/21 18:40 ABG O2 Saturation 91.4 (0-100) 03/26/21 18:40 Calcium 7.9 mg/dL (8.4-10.2) L 03/27/21 04:44 Assessment and Plan 1. Acute kidney injury: Vasomotor GREGOR superimposed on CKD in the setting of volume depletion / hypotension. Patient is also suspected of Myeloproliferative disorder. CT abdomen negative for hydro. Urine studies ordered. Continue IV fluids. Monitor renal function. Creatinine level is increasing. Avoid nephrotoxic agents. Meds dosage based on GFR. 2. FEN: Hyperkalemia, Kayaxalate, monitor. Metabolic acidosis, monitor. Hyponatremia, monitor. Monitor volume status and lytes. 3. Status post fall: CT head without any acute process. Monitor. 4. Severe pelvic pain: Likely 2/[address] abdomen pelvis x-ray soft tissue injury without any sign of fracture. Pain management. 5. Leukocytosis: Followed by ID. Paramjit-onc on board for possible myeloproliferative disorder. 6. Hypotensive episode: Resolved following IV fluid bolus. 7. Normocytic anemia with thrombocytosis: Monitor. Heme-onc on board. 8. Encephalopathy: Metabolic. Subjective: Patient was seen and examined at the bedside. Objective: General appearance: well-developed, appears stated age, not in distress HEENT: ATNC Neck: trachea midline Respiratory: diminished breath sounds Heart: S1S2, regular, no murmur Abdomen: soft, normoactive bowel sounds, not tender Integumentary: no obvious rash Ext: no edema Neurologic: barely arousable
--- NOTE | 2021-03-27 13:57 | Consultation ---
History of Present Illness - HPI Consult date: 03/27/21 Consult reason: joint pain History of present illness: 75 y/o female with c/o pelvic pain after fall on 03/24/21, past hx sign for CA... Medications and Allergies Allergies Allergy/AdvReac Type Severity Reaction Status Date / Time No Known Allergies Allergy Verified 03/24/21 21:46 Home Medications Medication Instructions Recorded Confirmed Last Taken Type Amlodipine Besylate [Norvasc] 10 mg PO DAILY 03/25/21 03/25/21 03/24/21 10:00 History AtorvaSTATin [Lipitor] 40 mg PO QHS 03/25/21 03/25/21 03/24/21 21:00 History Diclofenac 1% [Diclofenac 1% 100 gm TP QID 03/25/21 03/25/21 03/24/21 21:00 History topical gel] Gabapentin [Neurontin] 100 mg PO DAILY 03/25/21 03/25/21 03/24/21 21:00 History Nitrofurantoin Macrocrystal 100 mg PO BID 03/25/21 03/25/21 03/24/21 21:00 History [Nitrofurantoin] hydroCHLOROthiazide [HCTZ] 25 mg PO DAILY 03/25/21 03/25/21 03/24/21 10:00 History lisinopriL [Zestril TAB] 40 mg PO QDAY 03/25/21 03/25/21 03/24/21 10:00 History metFORMIN [Glucophage] 500 mg PO BID 03/25/21 03/25/21 03/24/21 17:00 History Insulin NPH/Regular [NovoLIN 70/30] 10 units SQ BID 03/26/21 03/26/21 Unknown History Active Meds: Active Medications Acetaminophen (Acetaminophen 325 Mg Tab) 650 mg PO Q4H PRN PRN Reason: Pain MILD(1-3)/Fever >100.5/GUAJARDO Last Admin: 03/25/21 10:56 Dose: 650 mg Documented by: Hydrocodone Bitart/Acetaminophen (Hydrocodone/Acetaminophen 5-325 Mg Tab) 2 each PO Q6H PRN PRN Reason: Pain, Moderate (4-6) Last Admin: 03/26/21 14:13 Dose: 2 each Documented by: Atorvastatin Calcium (Atorvastatin 40 Mg Tab) 40 mg PO QHS [facility] Last Admin: 03/26/21 21:38 Dose: 40 mg Documented by: Enoxaparin Sodium (Enoxaparin 40 Mg/0.4 Ml Inj) 40 mg SUB-Q QDAY@2200 [facility]; Protocol Last Admin: 03/26/21 21:38 Dose: 40 mg Documented by: Hydralazine HCl (Hydralazine 20 Mg/1 Ml Inj) 5 mg IV Q30MIN PRN PRN Reason: Hypertension Hydromorphone HCl (Hydromorphone 1 Mg/1 Ml Inj) 1 mg IV Q2H PRN PRN Reason: Pain , Severe (7-10) Sodium Chloride (Nacl 0.9% 1000 Ml) 1,000 mls @ 100 mls/hr IV DIRECT PHONG Last Admin: 03/26/21 21:39 Dose: 100 mls/hr Documented by: Piperacillin Sod/Tazobactam Sod (Zosyn/Ns 2.25 Gm/50ml) 2.25 gm in 50 mls @ 100 mls/hr IV Q6HR [facility] Last Admin: 03/27/21 13:05 Dose: Not Given Documented by: Insulin Human Regular (Insulin Regular, Human 100 Units/1 Ml) 0 units SUB-Q ACHS [facility]; Protocol Last Admin: 03/27/21 13:36 Dose: 6 units Documented by: Lorazepam (Lorazepam 2 Mg/Ml Vial) 2 mg IV DOVETAILER NR Stop: 03/27/21 17:46 Last Admin: 03/27/21 08:59 Dose: 2 mg Documented by: Methylprednisolone Sodium Succinate (Methylprednisolone Sod Succinate 125 Mg/2 Ml Inj) 60 mg IV Q12H PHONG Stop: 03/28/21 14:59 Last Admin: 03/27/21 02:15 Dose: 60 mg Documented by: Ondansetron HCl (Ondansetron 4 Mg/2 Ml Inj) 4 mg IV Q8H PRN PRN Reason: Nausea And Vomiting Last Admin: 03/25/21 18:18 Dose: 4 mg Documented by: Sodium Bicarbonate (Sodium Bicarbonate 650 Mg Tab) 650 mg PO BID [facility] Sodium Polystyrene Sulfonate (Sodium Polystyrene 15 Gm/60 Ml Oral Liqd) 15 gm PO Q6H PRN PRN Reason: Hyperkalemia Physical Examination - Physical exam Narrative exam: Pelvis- tender on passive ROM, no obvious swelling, decreased active ROM Eyes: PERRL ENT: Positive: clear oral mucosa Respiratory effort: normal Respiratory: bilateral: CTA Rhythm: regular Heart Sounds: Positive: S1 & S2 General gastrointestinal: Positive: soft, non-tender, non-distended, normal bowel sounds Integumentary: clear, warm, dry Neurologic: Positive: CNII-XII intact, moves all extremities, gait normal. Negative: focal deficits - Cervical Spine Neck pain: none Tenderness with palpation: none Full ROM: yes ROM: flexion: normal ROM: extension: normal ROM: rotation right: normal ROM: rotation left: normal ROM: lateral flexion right: normal ROM: lateral flexion left: normal - Lumbar Spine Back pain: none Tenderness with palpation: none Appearance: normal Full ROM: yes ROM: flexion: normal ROM: extension: normal ROM: rotation right: normal ROM: rotation left: normal ROM: lateral flexion right: normal ROM: lateral flexion left: normal Assessment and Plan pelvic pain - no fracture seen on xray/mri scan but fluid collection seen at right SI joint and torn tendons... recommend CT guided aspiration right SI joint/pelvic areas
--- NOTE | 2021-03-27 14:25 | Progress Note ---
Assessment and Plan Cultures: Blood culture 03/25/2021 no growth today MRSA PCR negative Assessment: 75-year-old female with history of hypertension, diabetes, admitted on 03/24/2021 secondary to a fall in the bathroom at home pain for several months: #Leukocytosis and thrombocytosis: Of unclear etiology. Reactive secondary to Pelvic trauma. Patient complaining of pelvic pain for several months. CT abdo men shows fluid tracks along the right medial acetabulum and thickening of the sacrospinosus ligament. Abdominal CT otherwise unremarkable. Patient denies any weight loss. Patient is not the best historian. Elevated procalcitonin in the setting of acute kidney injury. #Bilateral ischial pain R>L: On exam severe tenderness noted mild induration on right ischeal area ? Abscess ? Hematoma. Patient reports pain has been there for several weeks and radiates to the right foot. CRP 26. Pelvic MRI with near completion thorough for the right obturator intrnist muscle with hematoma in right pitifomis. Also right ischiofemoral impingement with complete tear quadratus femoralitis. Lumbar MRI with severe DJD. #Anemia #Elevated LFTs: Mild, AST 46. Unclear etiology, CT without cholecystitis. #GREGOR: Creatinine up Recommendations: -Agree with bone scan -Orthopedic consultation -Repeat CRP -Continue Zosyn IV for now, will probably stop if bone scan negative for osteo myelitis or abscess -Heme-onc on board Discussed with attending Dr Krause Will follow. Gillian Arambula MD Infectious Diseases [facility] ([facility]) M [phone] O [phone] Subjective Date of service: 03/27/21 Principal diagnosis: Leukocytosis Interval history: Patient is sleepy, went down for MRI and received Ativan Objective - Exam Narrative Exam: General appearance: Somnolent no acute distress Eyes: anicteric sclerae, moist conjunctivae; no lid-lag; PERRLA HENT: Normocephalic, Atraumatic; normal external ears, nares open, oropharynx limited Lungs: CTA CV: RRR no murmur Abdomen: Soft, non-tender; no masses or hepatosplenomegaly Extremities: no edema, no cyanosis, bilateral ischial area tenderness Skin: lright ischeal tenderness and induration Psych: Somnolent Neuro: Somnolent received Ativan - Constitutional Vitals: Vital Signs Temp Pulse Resp BP Pulse Ox 97.9 F 64 16 134/45 96 03/27/21 03:57 03/27/21 03:57 03/27/21 03:57 03/27/21 03:57 03/27/21 03:57 Temperature -Last 24 Hours Temperature 97.9 F Temperature 99.4 F Temperature 98.5 F - Labs CBC & Chem 7: 03/26/21 10:24 03/27/21 04:44 Labs: Abnormal lab results 03/26/21 03/26/21 03/26/21 Range/Units 16:15 18:36 18:40 D-Dimer 3944.31 H (0-234) ng/mlDDU POC ABG pO2 62.7 L (83-108) mmHg ABG Hemoglobin 7.7 L (12.0-17.5) ABG Oxyhemoglobin 90.5 L (94-98) ABG Sodium 124.6 L (136.0-145.0) mmol/L ABG Potassium 4.8 H (3.40-4.50) mmol/L ABG Glucose 275 H (65-95) mg/dL Sodium (137-145) mmol/L Potassium (3.6-5.0) mmol/L Chloride (98-107) mmol/L Carbon Dioxide (22-30) mmol/L BUN (7-17) mg/dL Creatinine (0.6-1.2) mg/dL Glucose (65-100) mg/dL POC Glucose 187 H (70-105) mg/dL Hemoglobin A1c (4-6) % Calcium (8.4-10.2) mg/dL Iron (37-170) ug/dL TIBC (250-450) mcg/dL Ferritin (10.0-200.0) ng/mL Arterial Blood Glucose 275 H (65-95) mg/dL Arterial Blood Ionized Calcium 4.4 L (4.6-5.3) mg/dL 03/26/21 03/27/21 03/27/21 Range/Units 21:03 04:44 04:44 D-Dimer (0-234) ng/mlDDU POC ABG pO2 (83-108) mmHg ABG Hemoglobin (12.0-17.5) ABG Oxyhemoglobin (94-98) ABG Sodium (136.0-145.0) mmol/L ABG Potassium (3.40-4.50) mmol/L ABG Glucose (65-95) mg/dL Sodium (137-145) mmol/L Potassium (3.6-5.0) mmol/L Chloride (98-107) mmol/L Carbon Dioxide (22-30) mmol/L BUN (7-17) mg/dL Creatinine (0.6-1.2) mg/dL Glucose (65-100) mg/dL POC Glucose 246 H (70-105) mg/dL Hemoglobin A1c (4-6) % Calcium (8.4-10.2) mg/dL Iron 18 L (37-170) ug/dL TIBC 107 L (250-450) mcg/dL Ferritin 1071.0 H (10.0-200.0) ng/mL Arterial Blood Glucose (65-95) mg/dL Arterial Blood Ionized Calcium (4.6-5.3) mg/dL 03/27/21 03/27/21 03/27/21 Range/Units 04:44 04:44 07:50 D-Dimer (0-234) ng/mlDDU POC ABG pO2 (83-108) mmHg ABG Hemoglobin (12.0-17.5) ABG Oxyhemoglobin (94-98) ABG Sodium (136.0-145.0) mmol/L ABG Potassium (3.40-4.50) mmol/L ABG Glucose (65-95) mg/dL Sodium 129 L (137-145) mmol/L Potassium 5.6 H (3.6-5.0) mmol/L Chloride 97.4 L (98-107) mmol/L Carbon Dioxide 18 L (22-30) mmol/L BUN 37 H (7-17) mg/dL Creatinine 1.9 H (0.6-1.2) mg/dL Glucose 260 H (65-100) mg/dL POC Glucose 281 H (70-105) mg/dL Hemoglobin A1c 9.9 H (4-6) % Calcium 7.9 L (8.4-10.2) mg/dL Iron (37-170) ug/dL TIBC (250-450) mcg/dL Ferritin (10.0-200.0) ng/mL Arterial Blood Glucose (65-95) mg/dL Arterial Blood Ionized Calcium (4.6-5.3) mg/dL
--- NOTE | 2021-03-27 15:24 | Nuclear Medicine Report ---
NUCLEAR MEDICINE WHOLE BODY BONE IMAGING STUDY. HISTORY: possible malignancy COMPARISON: No prior bone scans are available for comparison. Recent cross-sectional imaging studies were review ed. TECHNIQUE: The patient was administered 25.6 mCi of technetium 99m labeled MDP intravenously. FINDINGS: There is bilateral, relatively symmetric articular activity which is most likely degenerative given t he distribution and symmetry. No asymmetric radiotracer activity is seen within the included axial and appendicular skeleton. There is normal soft tissue activity in the kidneys and urinary bladder. Soft tissue activity at the right forearm may be due to injection site. IMPRESSION: No scintigraphic evidence of osseous metastatic disease. Signer Name: Zachary Hung MD Signed: 03/27/2021 3:19 PM Workstation Name: [email or web address]
[2021-03-27 17:47] LABS: Hematocrit 23.3 % (30.3-42.9); Hemoglobin 7.9 gm/dl (10.1-14.3); Mean Corpuscular HGB Conc 34 % (30-34); Mean Corpuscular Volume 85 fl (79-97); Platelet Count 526 K/mm3 (140-440); Red Blood Count 2.74 M/mm3 (3.65-5.03); Red Cell Distribution Width 17.1 % (13.2-15.2)
[2021-03-27] MEDS: SODIUM BICARBONATE 650 MG TAB PO SCH ×2 (18:17→21:20)
[2021-03-27] MEDS: ENOXAPARIN 30 MG/0.3 ML INJ SUB-Q SCH (21:20)
[2021-03-27] MEDS ORDERED: INSULIN GLARGINE 100 UNITS/ML SUB-Q SCH (22:00)
[2021-03-27] MEDS ORDERED: SODIUM BICARB 8.4% 50 MEQ/50 ML SYRINGE IV ONE (22:35)
[2021-03-28] MEDS: methylPREDNISolone Sod Succinate 125 MG/2 ML INJ IV SCH (02:16)
[2021-03-28] MEDS: SODIUM CHLORIDE 0.9% 1000 ML 1,000 ML IV SCH (02:36)
[2021-03-28] MEDS: PIPERACIL-TAZO 2.25 GM/50 ML 2.25 GM/50 ML BAG IV SCH ×3 (05:21→18:33)
[2021-03-28 06:06] LABS: Hematocrit 23.9 % (30.3-42.9); Hemoglobin 7.4 gm/dl (10.1-14.3); Mean Corpuscular HGB Conc 31 % (30-34); Mean Corpuscular Volume 84 fl (79-97); Platelet Count 573 K/mm3 (140-440); Red Blood Count 2.84 M/mm3 (3.65-5.03)
[2021-03-28 06:24] LABS: Calcium 7.8 mg/dL (8.4-10.2)
[2021-03-28 07:17] LABS: Band Neutrophils # (Manual) 0.3 K/mm3; Total Cells Counted 100
[2021-03-28 07:18] LABS: Anisocytosis 1+; Platelet Estimate Consistent w Auto; Toxic Granulation 1+
[2021-03-28] MEDS: INSULIN REGULAR, HUMAN 100 UNITS/1 ML SUB-Q SCH ×3 (08:55→18:34)
[2021-03-28] MEDS: SODIUM BICARBONATE 650 MG TAB PO SCH ×2 (09:57→23:59)
--- NOTE | 2021-03-28 11:43 | Hem/Onc Progress Note ---
Subjective Interval history: heme/onc televisit f/u spoke to pt on telephone 75yo woman admitted after falling admitted for severe R hip pain can barely walk says she has had same pain for months found to have high plt and WBC and elevated alk phos abn pelvis MRI-->sacroillitis, piriformis strain, obturator tear, maybe hematoma she has been on steroid pulse for a few days and she says her pain is not improved per nursing notes she has not seemed uncomfortable DATA REVIEWED BELOW IMP: I favor myeloproliferative disorder/myelofibrosis over "reactive" high counts, but either is possible severe R hip pain with abn imaging, this could be inflam/gout related to MPD not benefitting from steroids traumatic injury could be the cause of this, but wondering whether this preceded fall heme malig or solid tumor malignancy is a possibility, but so far not seen REC: steroid taper this week consider bone marrow biopsy to look for myelofibrosis nuclear bone scan to add more data offer opiate meds for pain still receiving iV ABx Active Medications : Enoxaparin Sodium (Enoxaparin 30 Mg/0.3 Ml Inj) 30 mg SUB-Q QHS [facility] Last Admin: 03/27/21 21:20 Dose: 30 mg Documented by: Piperacillin Sod/Tazobactam Sod (Zosyn/Ns 2.25 Gm/50ml) 2.25 gm in 50 mls @ 100 mls/hr IV Q6HR [facility] Last Admin: 03/28/21 05:21 Dose: 100 mls/hr Documented by: Methylprednisolone Sodium Succinate (Methylprednisolone Sod Succinate 125 Mg/2 Ml Inj) 60 mg IV Q12H [facility] Stop: 03/28/21 14:59 Last Admin: 03/28/21 02:16 Dose: 60 mg Documented by: Laboratory Last Values WBC 28.5 K/mm3 (4.5-11.0) H 03/28/21 04:27 Hgb 7.4 gm/dl (10.1-14.3) L 03/28/21 04:27 Hct 23.9 % (30.3-42.9) L 03/28/21 04:27 Plt Count 573 K/mm3 (140-440) H 03/28/21 04:27 Seg Neuts % (Manual) 92.0 % (40.0-70.0) H 03/28/21 04:27 Band Neutrophils % 1.0 % 03/28/21 04:27 Lymphocytes % (Manual) 6.0 % (13.4-35.0) L 03/28/21 04:27 Monocytes % (Manual) 4.0 % (0.0-7.3) 03/25/21 00:16 Metamyelocytes % 1.0 % 03/28/21 04:27 Creatinine 1.9 mg/dL (0.6-1.2) H 03/28/21 04:27 Alkaline Phosphatase 198 units/L (35-129) H 03/26/21 05:22 Lactate Dehydrogenase 119 units/L (91-180) 03/26/21 05:22 Nasal Screen MRSA (PCR) Negative (Negative) 03/25/21 09:54 Objective - Constitutional Vitals: Last Vital Signs Temp 122.0 F H 03/28/21 04:43 Pulse 74 03/28/21 04:43 Resp 17 03/28/21 04:43 BP 161/63 03/28/21 04:43 Pulse Ox 99 03/28/21 04:43 - Labs Lab Results: Laboratory Results - last 24 hr 03/27/21 03/27/21 03/27/21 13:17 15:36 17:38 WBC 33.0 H RBC 2.74 L Hgb 7.9 L Hct 23.3 L MCV 85 MCH 29 MCHC 34 RDW 17.1 H Plt Count 526 H Add Manual Diff Total Counted Seg Neutrophils % Seg Neuts % (Manual) Band Neutrophils % Lymphocytes % (Manual) Metamyelocytes % Nucleated RBC % Seg Neutrophils # Man Band Neutrophils # Lymphocytes # (Manual) Abs React Lymphs (Man) Monocytes # (Manual) Eosinophils # (Manual) Basophils # (Manual) Metamyelocytes # Myelocytes # Promyelocytes # Blast Cells # WBC Morphology Hypersegmented Neuts Hyposegmented Neuts Hypogranular Neuts Smudge Cells Toxic Granulation Toxic Vacuolation Dohle Bodies Pelger-Huet Anomaly Ad Rods Platelet Estimate Clumped Platelets Plt Clumps, EDTA Large Platelets Giant Platelets Platelet Satelliting Plt Morphology Comment RBC Morphology Dimorphic RBCs Polychromasia Hypochromasia Poikilocytosis Anisocytosis Microcytosis Macrocytosis Spherocytes Pappenheimer Bodies Sickle Cells Target Cells Tear Drop Cells Ovalocytes Helmet Cells Hamm-Glouster Bodies [place] Rings Nik Cells Bite Cells Crenated Cell Elliptocytes Acanthocytes (Spur) Rouleaux Hemoglobin C Crystals Schistocytes Malaria parasites Bautista Bodies Hem Pathologist Commnt Sodium Potassium Chloride Carbon Dioxide Anion Gap BUN Creatinine Estimated GFR BUN/Creatinine Ratio Glucose POC Glucose 322 H 313 H Calcium C-Reactive Protein 03/27/21 03/27/21 03/27/21 17:38 17:38 21:33 WBC RBC Hgb Hct MCV MCH MCHC RDW Plt Count Add Manual Diff Total Counted Seg Neutrophils % Seg Neuts % (Manual) Band Neutrophils % Lymphocytes % (Manual) Metamyelocytes % Nucleated RBC % Seg Neutrophils # Man Band Neutrophils # Lymphocytes # (Manual) Abs React Lymphs (Man) Monocytes # (Manual) Eosinophils # (Manual) Basophils # (Manual) Metamyelocytes # Myelocytes # Promyelocytes # Blast Cells # WBC Morphology Hypersegmented Neuts Hyposegmented Neuts Hypogranular Neuts Smudge Cells Toxic Granulation Toxic Vacuolation Dohle Bodies Pelger-Huet Anomaly Ad Rods Platelet Estimate Clumped Platelets Plt Clumps, EDTA Large Platelets Giant Platelets Platelet Satelliting Plt Morphology Comment RBC Morphology Dimorphic RBCs Polychromasia Hypochromasia Poikilocytosis Anisocytosis Microcytosis Macrocytosis Spherocytes Pappenheimer Bodies Sickle Cells Target Cells Tear Drop Cells Ovalocytes Helmet Cells Hamm-Glouster Bodies [place] Rings Nik Cells Bite Cells Crenated Cell Elliptocytes Acanthocytes (Spur) Rouleaux Hemoglobin C Crystals Schistocytes Malaria parasites Bautista Bodies Hem Pathologist Commnt Sodium 128 L Potassium 5.1 H Chloride 97.3 L Carbon Dioxide 15 L Anion Gap 21 BUN 48 H Creatinine 2.1 H Estimated GFR 23 BUN/Creatinine Ratio 23 Glucose 316 H POC Glucose 335 H Calcium 8.0 L C-Reactive Protein 20.60 H 03/28/21 03/28/21 03/28/21 04:27 04:27 08:46 WBC 28.5 H RBC 2.84 L Hgb 7.4 L Hct 23.9 L MCV 84 MCH 26 L MCHC 31 RDW 17.0 H Plt Count 573 H Add Manual Diff Complete Total Counted 100 Seg Neutrophils % Balance Clerk Seg Neuts % (Manual) 92.0 H Band Neutrophils % 1.0 Lymphocytes % (Manual) 6.0 L Metamyelocytes % 1.0 Nucleated RBC % Not Reportable Seg Neutrophils # Man 26.2 H Band Neutrophils # 0.3 Lymphocytes # (Manual) 1.7 Abs React Lymphs (Man) 0.0 Monocytes # (Manual) 0.0 Eosinophils # (Manual) 0.0 Basophils # (Manual) 0.0 Metamyelocytes # 0.3 Myelocytes # 0.0 Promyelocytes # 0.0 Blast Cells # 0.0 WBC Morphology Not Reportable Hypersegmented Neuts Not Reportable Hyposegmented Neuts Not Reportable Hypogranular Neuts Not Reportable Smudge Cells Not Reportable Toxic Granulation 1+ Toxic Vacuolation Not Reportable Dohle Bodies Not Reportable Pelger-Huet Anomaly Not Reportable Ad Rods Not Reportable Platelet Estimate Consistent w auto Clumped Platelets Not Reportable Plt Clumps, EDTA Not Reportable Large Platelets Not Reportable Giant Platelets Not Reportable Platelet Satelliting Not Reportable Plt Morphology Comment Not Reportable RBC Morphology Not Reportable Dimorphic RBCs Not Reportable Polychromasia Not Reportable Hypochromasia Not Reportable Poikilocytosis Not Reportable Anisocytosis 1+ Microcytosis Not Reportable Macrocytosis Not Reportable Spherocytes Not Reportable Pappenheimer Bodies Not Reportable Sickle Cells Not Reportable Target Cells Not Reportable Tear Drop Cells Not Reportable Ovalocytes Not Reportable Helmet Cells Not Reportable Hamm-Glouster Bodies Not Reportable [place] Rings Not Reportable Nik Cells Not Reportable Bite Cells Not Reportable Crenated Cell Not Reportable Elliptocytes Not Reportable Acanthocytes (Spur) Not Reportable Rouleaux Not Reportable Hemoglobin C Crystals Not Reportable Schistocytes Not Reportable Malaria parasites Not Reportable Bautista Bodies Not Reportable Hem Pathologist Commnt No Sodium 134 L Potassium 4.8 Chloride 101.1 Carbon Dioxide 19 L Anion Gap 19 BUN 50 H Creatinine 1.9 H Estimated GFR 26 BUN/Creatinine Ratio 26 Glucose 287 H POC Glucose 337 H Calcium 7.8 L C-Reactive Protein Medications & Allergies - Medications Allergies/Adverse Reactions: Allergies No Known Allergies Allergy (Verified 03/24/21 21:46) Home Medications: Home Medications Medication Instructions Recorded Confirmed Last Taken Type Amlodipine Besylate [Norvasc] 10 mg PO DAILY 03/25/21 03/25/21 03/24/21 10:00 History AtorvaSTATin [Lipitor] 40 mg PO QHS 05/11/0303/25/21 03/24/21 21:00 History Diclofenac 1% [Diclofenac 1% 100 gm TP QID 03/25/21 03/25/21 03/24/21 21:00 History topical gel] Gabapentin [Neurontin] 100 mg PO DAILY 03/25/21 03/25/21 03/24/21 21:00 History Nitrofurantoin Macrocrystal 100 mg PO BID 03/25/21 03/25/21 03/24/21 21:00 History [Nitrofurantoin] hydroCHLOROthiazide [HCTZ] 25 mg PO DAILY 03/25/21 03/25/21 03/24/21 10:00 History lisinopriL [Zestril TAB] 40 mg PO QDAY 03/25/21 03/25/21 03/24/21 10:00 History metFORMIN [Glucophage] 500 mg PO BID 03/25/21 03/25/21 03/24/21 17:00 History Insulin NPH/Regular [NovoLIN 70/30] 10 units SQ BID 03/26/21 03/26/21 Unknown History Active Medications: Generic Name Dose Route Start Last Admin Trade Name Freq PRN Reason Stop Dose Admin Acetaminophen 650 mg 03/25/21 10:30 03/25/21 10:56 Acetaminophen 325 Mg Tab PO 650 mg Q4H PRN Administration Pain MILD(1-3)/Fever >100.5/GUAJARDO Hydrocodone Bitart/Acetaminophen 2 each 03/25/21 10:30 03/26/21 14:13 Hydrocodone/Acetaminophen 5-325 Mg Tab PO 2 each Q6H PRN Administration Pain, Moderate (4-6) Atorvastatin Calcium 40 mg 03/25/21 22:00 03/27/21 21:20 Atorvastatin 40 Mg Tab PO 40 mg QHS [facility] Administration Enoxaparin Sodium 30 mg 03/27/21 22:00 03/27/21 21:20 Enoxaparin 30 Mg/0.3 Ml Inj SUB-Q 30 mg QHS [facility] Administration Hydralazine HCl 5 mg 03/25/21 10:30 Hydralazine 20 Mg/1 Ml Inj IV Q30MIN PRN Hypertension Hydromorphone HCl 1 mg 03/26/21 15:00 Hydromorphone 1 Mg/1 Ml Inj IV Q2H PRN Pain , Severe (7-10) Sodium Chloride 1,000 mls @ 100 mls/hr 03/25/21 11:00 03/28/21 02:36 Nacl 0.9% 1000 Ml IV 100 mls/hr DIRECT [facility]ONG Administration Piperacillin Sod/Tazobactam Sod 2.25 gm in 50 mls @ 100 mls/hr 03/26/21 14:00 03/28/21 05:21 Zosyn/Ns 2.25 Gm/50ml IV 100 mls/hr Q6HR [facility] Administration Insulin Glargine 20 units 03/27/21 22:00 03/27/21 21:50 Insulin Glargine 100 Units/Ml SUB-Q 20 units QHS [facility] Administration Insulin Human Regular 0 units 03/26/21 22:00 03/28/21 08:55 Insulin Regular, Human 100 Units/1 Ml SUB-Q 8 units ACHS [facility] Administration Protocol Methylprednisolone Sodium Succinate 60 mg 03/26/21 15:00 03/28/21 02:16 Methylprednisolone Sod Succinate 125 Mg/2 Ml Inj IV 03/28/21 14:59 60 mg Q12H [facility] Administration Ondansetron HCl 4 mg 03/25/21 10:30 03/25/21 18:18 Ondansetron 4 Mg/2 Ml Inj IV 4 mg Q8H PRN Administration Nausea And Vomiting Sodium Bicarbonate 650 mg 03/27/21 10:30 03/28/21 09:57 Sodium Bicarbonate 650 Mg Tab PO 650 mg BID PHONG Administration Sodium Polystyrene Sulfonate 15 gm 03/27/21 10:00 Sodium Polystyrene 15 Gm/60 Ml Oral Liqd PO Q6H PRN Hyperkalemia
[2021-03-28] MEDS ORDERED: INSULIN GLARGINE 100 UNITS/ML SUB-Q SCH ×2 (13:30→13:31)
--- NOTE | 2021-03-28 13:41 | Progress Note ---
Assessment and Plan Acute hypoxemic respiratory failure Status post fall without acute fracture Leukocytosis, etiology unclear History of cervical cancer Diabetes type 2 Systemic inflammatory response syndrome - orthopedic consult placed - dopplers negative for VTE - continue care as below otherwise; - continue supplemental oxygen to keep O2 sats > 90% - continue Bronchodilators (MOISES) with pulm hygiene per RT - taper off systemic steroids - continue to avoid nephrotoxins, renally dose all medications - continue mobility protocols to prevent pressure ulcers - PT/OT as tolerated - Wound care per RN/WCT - accuchecks with glycemic control per SSI for target blood glucose < 180 mg/dL - prn analgesia per pain score - home oxygen evaluation at discharge - GI & VTE prophylaxis - Flu & pneumovax per protocol - Pulmonary out patient follow up for PFTs and optimization of respiratory status - continue other care per attending / other consultants ... re-evaluate in am & prn Subjective Date of service: 03/27/21 Principal diagnosis: Ac. hypoxemic resp failure; S/P fall; Leukocytosis; DM II Interval history: Patient is seen today for: Acute hypoxemic respiratory failure; S/P fall; Leukocytosis; H/O cervical cancer; DM II; SIRS Seen and examined at bedside; 24hour events reviewed; nursing and respiratory care staff consulted; no adverse overnight events reported to me; resting peacefully in bed; denies acute chest pain; no hemoptysis; MRI hip demonstrates quadratis Femoris tear and Piriformis hematoma; orthopedic consult placed Objective Vital Signs - 12hr 03/27/21 03:57 Temperature 97.9 F Pulse Rate 64 Respiratory 16 Rate Blood Pressure 134/45 O2 Sat by Pulse 96 Oximetry Constitutional: appears uncomfortable, other (elderly female with mildly increased respiratory effort at rest) Eyes: non-icteric ENT: oropharynx moist Neck: supple, no lymphadenopathy, no JVD Effort: mildly labored Ascultation: Bilateral: diminished breath sounds, rhonchi (scant) Percussion: Bilateral: not dull Cardiovascular: regular rate and rhythm Gastrointestinal: normoactive bowel sounds, soft, non-tender, non-distended Integumentary: normal Extremities: no cyanosis, pink and warm, pulses normal, no ischemia or petechiae Neurologic: non-focal exam (grossly), pupils equal and round, CN II-XII normal Psychiatric: anxious CBC and BMP: 03/28/21 04:27 03/28/21 04:27 ABG, PT/INR, D-dimer: ABG ABG pH 7.364 (7.320-7.450) 03/26/21 18:40 POC ABG pCO2 33.3 mmHg (32.0-48.0) 03/26/21 18:40 POC ABG pO2 62.7 mmHg (83-108) L 03/26/21 18:40 POC ABG HCO3 18.6 03/26/21 18:40 ABG O2 Saturation 91.4 (0-100) 03/26/21 18:40 PT/INR, D-dimer PT 15.0 Sec. (12.2-14.9) H 03/24/21 21:46 INR 1.20 (0.87-1.13) H 03/24/21 21:46 D-Dimer 3944.31 ng/mlDDU (0-234) H 03/26/21 18:36 Abnormal lab findings: Abnormal Labs 03/24/21 03/24/21 03/24/21 21:46 21:46 21:46 WBC 31.4 H RBC 2.80 L Hgb 7.8 L Hct 23.6 L RDW 16.1 H Plt Count 548 H Seg Neuts % (Manual) 90.0 H Lymphocytes % (Manual) 4.0 L Seg Neutrophils # Man 28.3 H Monocytes # (Manual) 1.3 H PT 15.0 H INR 1.20 H APTT 38.2 H D-Dimer POC ABG pO2 ABG Hemoglobin ABG Oxyhemoglobin ABG Sodium ABG Potassium ABG Glucose Sodium 126 L Potassium Chloride 90.5 L Carbon Dioxide BUN 34 H Creatinine Glucose 228 H POC Glucose Hemoglobin A1c Calcium 8.1 L Iron TIBC Ferritin AST Alkaline Phosphatase C-Reactive Protein Total Protein Albumin Arterial Blood Glucose Arterial Blood Ionized Calcium 03/24/21 03/25/21 03/25/21 21:46 00:16 08:42 WBC 34.0 H RBC 3.08 L Hgb 8.6 L Hct 25.8 L RDW 16.6 H Plt Count 627 H Seg Neuts % (Manual) 89.0 H Lymphocytes % (Manual) 6.0 L Seg Neutrophils # Man 30.3 H Monocytes # (Manual) 1.4 H PT INR APTT D-Dimer POC ABG pO2 ABG Hemoglobin ABG Oxyhemoglobin ABG Sodium ABG Potassium ABG Glucose Sodium Potassium Chloride Carbon Dioxide BUN Creatinine Glucose POC Glucose 167 H Hemoglobin A1c Calcium Iron TIBC Ferritin AST 46 H Alkaline Phosphatase 235 H C-Reactive Protein Total Protein 5.7 L Albumin 2.4 L Arterial Blood Glucose Arterial Blood Ionized Calcium 03/25/21 03/25/21 03/25/21 11:01 16:28 19:04 WBC RBC Hgb Hct RDW Plt Count Seg Neuts % (Manual) Lymphocytes % (Manual) Seg Neutrophils # Man Monocytes # (Manual) PT INR APTT D-Dimer POC ABG pO2 ABG Hemoglobin ABG Oxyhemoglobin ABG Sodium ABG Potassium ABG Glucose Sodium Potassium Chloride Carbon Dioxide BUN Creatinine Glucose POC Glucose 249 H 227 H Hemoglobin A1c Calcium Iron TIBC Ferritin AST Alkaline Phosphatase C-Reactive Protein 26.30 H Total Protein Albumin Arterial Blood Glucose Arterial Blood Ionized Calcium 03/25/21 03/26/21 03/26/21 20:48 05:22 10:24 WBC 31.0 H RBC 2.91 L Hgb 8.1 L Hct 24.7 L RDW 16.8 H Plt Count 502 H Seg Neuts % (Manual) Lymphocytes % (Manual) Seg Neutrophils # Man Monocytes # (Manual) PT INR APTT D-Dimer POC ABG pO2 ABG Hemoglobin ABG Oxyhemoglobin ABG Sodium ABG Potassium ABG Glucose Sodium 132 L Potassium Chloride Carbon Dioxide BUN 35 H Creatinine 1.6 H Glucose 195 H POC Glucose 217 H Hemoglobin A1c Calcium 7.6 L Iron TIBC Ferritin AST Alkaline Phosphatase 198 H C-Reactive Protein Total Protein 6.1 L Albumin 1.9 L Arterial Blood Glucose Arterial Blood Ionized Calcium 03/26/21 03/26/21 03/26/21 16:15 18:36 18:40 WBC RBC Hgb Hct RDW Plt Count Seg Neuts % (Manual) Lymphocytes % (Manual) Seg Neutrophils # Man Monocytes # (Manual) PT INR APTT D-Dimer 3944.31 H POC ABG pO2 62.7 L ABG Hemoglobin 7.7 L ABG Oxyhemoglobin 90.5 L ABG Sodium 124.6 L ABG Potassium 4.8 H ABG Glucose 275 H Sodium Potassium Chloride Carbon Dioxide BUN Creatinine Glucose POC Glucose 187 H Hemoglobin A1c Calcium Iron TIBC Ferritin AST Alkaline Phosphatase C-Reactive Protein Total Protein Albumin Arterial Blood Glucose 275 H Arterial Blood Ionized Calcium 4.4 L 05/13/21 05/14/21 05/14/21 21:03 04:44 04:44 WBC RBC Hgb Hct RDW Plt Count Seg Neuts % (Manual) Lymphocytes % (Manual) Seg Neutrophils # Man Monocytes # (Manual) PT INR APTT D-Dimer POC ABG pO2 ABG Hemoglobin ABG Oxyhemoglobin ABG Sodium ABG Potassium ABG Glucose Sodium Potassium Chloride Carbon Dioxide BUN Creatinine Glucose POC Glucose 246 H Hemoglobin A1c Calcium Iron 18 L TIBC 107 L Ferritin 1071.0 H AST Alkaline Phosphatase C-Reactive Protein Total Protein Albumin Arterial Blood Glucose Arterial Blood Ionized Calcium 03/27/21 03/27/21 03/27/21 04:44 04:44 07:50 WBC RBC Hgb Hct RDW Plt Count Seg Neuts % (Manual) Lymphocytes % (Manual) Seg Neutrophils # Man Monocytes # (Manual) PT INR APTT D-Dimer POC ABG pO2 ABG Hemoglobin ABG Oxyhemoglobin ABG Sodium ABG Potassium ABG Glucose Sodium 129 L Potassium 5.6 H Chloride 97.4 L Carbon Dioxide 18 L BUN 37 H Creatinine 1.9 H Glucose 260 H POC Glucose 281 H Hemoglobin A1c 9.9 H Calcium 7.9 L Iron TIBC Ferritin AST Alkaline Phosphatase C-Reactive Protein Total Protein Albumin Arterial Blood Glucose Arterial Blood Ionized Calcium Allied health notes reviewed: nursing
[2021-03-28] MEDS: oxyCODONE ER 20 MG TAB PO SCH ×2 (14:00→23:59)
--- NOTE | 2021-03-28 14:09 | Progress Note ---
Assessment and Plan Status post fall -CT head without any acute process -Patient has no focal deficit -Continue to monitor clinically and PT eval when clinically more stable Severe pelvic pain -Likely traumatic following fall -CT abdomen pelvis x-ray soft tissue injury without any sign of fracture -Pain management as needed -pelvic and lumbar spine MRI: degenerative changes,fluid collection seen at right SI joint and torn tendons, Ortho recommend CT guided aspiration right SI joint/pelvic areas - IR consulted. Leukocytosis with WBC > 31K -patient on empiric antibiotic -ID on board and neg culture -Heme-onc on board for malignancy focus myeloproliferative disorder -Ordered bone scan for possible malignancy GREGOR, vasomotor nephropathy -Continue gentle IV fluid hydration, BMP daily -Consulted nephrology, avoid nephrotoxins DM type 2 -Consistent carb diet placed on SSI, ordered A1c and nephrology paged Hyponatrenia, likely due to dehydration, continue IV fluid Hypotensive episode, resolved following IV fluid boluses Normocytic anemia with thrombocytosis -Monitor H&H follow clinically -Heme-onc on board Hypotension, likely from dehydration continue IV fluid DVT prophylaxis with Lovenox Daily clinical course: 03/25/21: Following admission patient noted to be hypotensive, given IV fluid boluses and continued fluid with maintenance rate. Plan to transfer to ICU to start on pressor if BP does not improve with fluid challenge. 03/26/21: Patient continues to complains of pelvic pain. Noted to have CVA tenderness over the right ischeal tuberosity. Will Obtain pelvic MRI with contra st and lumbar spine MRI evaluation for possible epidural abscess, discitis, rectal ischial abscess, continue empiric antibiotics for now, ID following. Heme-onc consulted possible underlying myeloproliferative disorder we will follow pending labs- 03/27: Cr trending up - consult nephrology, MRI pelvis pending, ordered bone scan per heam recommendation. started on steroid. follow BMP, trend Cr 03/28: No fracture seen on xray/mri scan but fluid collection seen at right SI joint and torn tendons, Ortho recommend CT guided aspiration right SI joint/pelvic areas - IR consulted. Cr slightly improved, cont to follow BMP. cont steroid, follow CBC Subjective Date of service: 03/28/21 Principal diagnosis: Ac. hypoxemic resp failure; S/P fall; Leukocytosis; DM II Interval history: Patient seen and examined. Medical records and medication list reviewed. No acute event overnight noted by the RN. Patient continue to complain of severe pelvic pain Discussed plan of care at bedside with patient. Objective - Exam Narrative Exam: GENERAL: well-developed and well-nourished elderly female appears in moderate distress HEENT: Normocephalic. Atraumatic. No conjunctival congestion or icterus. Patient has moist mucous membranes. NECK: Supple. Trachea midline. CHEST/LUNGS: Clear to auscultated bilaterally, breathing nonlabored. No wheezes crackles or rhonchi. HEART/CARDIOVASCULAR: Regular in rate and rhythm. S1 and S2 positive. ABDOMEN: Abdomen is soft, nontender. Patient has normal bowel sounds. SKIN: There is no rash. Warm and dry. NEURO: No focal motor deficit. Follows command. MUSCULOSKELETAL: No joint effusion or tenderness. tenderness over the pelvic floor area EXTRIMITY: No edema, no cyanosis or clubbing. PSYCH: Cooperative. - Constitutional Vitals: Vital Signs - 12hr 03/28/21 04:43 Temperature 122.0 F H Pulse Rate 74 Respiratory 17 Rate Blood Pressure 161/63 O2 Sat by Pulse 99 Oximetry - Labs CBC & Chem 7: 03/28/21 04:27 03/29/21 05:09 Labs: Abnormal lab results 03/27/21 03/27/21 03/27/21 Range/Units 13:17 15:36 17:38 WBC 33.0 H (4.5-11.0) K/mm3 RBC 2.74 L (3.65-5.03) M/mm3 Hgb 7.9 L (10.1-14.3) gm/dl Hct 23.3 L (30.3-42.9) % MCH (28-32) pg RDW 17.1 H (13.2-15.2) % Plt Count 526 H (140-440) K/mm3 Seg Neuts % (Manual) (40.0-70.0) % Lymphocytes % (Manual) (13.4-35.0) % Seg Neutrophils # Man (1.8-7.7) K/mm3 Sodium (137-145) mmol/L Potassium (3.6-5.0) mmol/L Chloride (98-107) mmol/L Carbon Dioxide (22-30) mmol/L BUN (7-17) mg/dL Creatinine (0.6-1.2) mg/dL Glucose (65-100) mg/dL POC Glucose 322 H 313 H (70-105) mg/dL Calcium (8.4-10.2) mg/dL C-Reactive Protein (0.00-1.30) mg/dL 03/27/21 03/27/21 03/27/21 Range/Units 17:38 17:38 21:33 WBC (4.5-11.0) K/mm3 RBC (3.65-5.03) M/mm3 Hgb (10.1-14.3) gm/dl Hct (30.3-42.9) % MCH (28-32) pg RDW (13.2-15.2) % Plt Count (140-440) K/mm3 Seg Neuts % (Manual) (40.0-70.0) % Lymphocytes % (Manual) (13.4-35.0) % Seg Neutrophils # Man (1.8-7.7) K/mm3 Sodium 128 L (137-145) mmol/L Potassium 5.1 H (3.6-5.0) mmol/L Chloride 97.3 L (98-107) mmol/L Carbon Dioxide 15 L (22-30) mmol/L BUN 48 H (7-17) mg/dL Creatinine 2.1 H (0.6-1.2) mg/dL Glucose 316 H (65-100) mg/dL POC Glucose 335 H (70-105) mg/dL Calcium 8.0 L (8.4-10.2) mg/dL C-Reactive Protein 20.60 H (0.00-1.30) mg/dL 03/28/21 03/28/21 03/28/21 Range/Units 04:27 04:27 08:46 WBC 28.5 H (4.5-11.0) K/mm3 RBC 2.84 L (3.65-5.03) M/mm3 Hgb 7.4 L (10.1-14.3) gm/dl Hct 23.9 L (30.3-42.9) % MCH 26 L (28-32) pg RDW 17.0 H (13.2-15.2) % Plt Count 573 H (140-440) K/mm3 Seg Neuts % (Manual) 92.0 H (40.0-70.0) % Lymphocytes % (Manual) 6.0 L (13.4-35.0) % Seg Neutrophils # Man 26.2 H (1.8-7.7) K/mm3 Sodium 134 L (137-145) mmol/L Potassium (3.6-5.0) mmol/L Chloride (98-107) mmol/L Carbon Dioxide 19 L (22-30) mmol/L BUN 50 H (7-17) mg/dL Creatinine 1.9 H (0.6-1.2) mg/dL Glucose 287 H (65-100) mg/dL POC Glucose 337 H (70-105) mg/dL Calcium 7.8 L (8.4-10.2) mg/dL C-Reactive Protein (0.00-1.30) mg/dL
--- NOTE | 2021-03-28 14:57 | Progress Note ---
Assessment and Plan 1. Acute kidney injury: Vasomotor GREGOR superimposed on CKD in the setting of volume depletion / hypotension. Patient is also suspected of Myeloproliferative disorder. CT abdomen negative for hydro. Urine studies ordered. Continue IV fluids. Monitor renal function. Creatinine level is slightly better today. Avoid nephrotoxic agents. Meds dosage based on GFR. 2. FEN: Hyperkalemia, improved, monitor. Metabolic acidosis, monitor. Hyponatremia, monitor. Monitor volume status and lytes. 3. Status post fall: CT head without any acute process. Monitor. 4. Severe pelvic pain: Likely 2/[address] abdomen pelvis x-ray soft tissue injury without any sign of fracture. Pain management. 5. Leukocytosis: Followed by ID. Heme-onc on board for possible myeloproliferative disorder. 6. Hypotensive episode: Resolved following IV fluid bolus. 7. Normocytic anemia with thrombocytosis: Monitor. Heme-onc on board. 8. Encephalopathy: Metabolic. Improved / improving. Subjective: Patient was seen and examined at the bedside. Objective: General appearance: well-developed, appears stated age, not in distress HEENT: ATNC Neck: trachea midline Respiratory: diminished breath sounds Heart: S1S2, regular, no murmur Abdomen: soft, normoactive bowel sounds, not tender Integumentary: no obvious rash Ext: no edema Neurologic: alert, able to move extremities Subjective Date of service: 03/28/21 Principal diagnosis: Ac. hypoxemic resp failure; S/P fall; Leukocytosis; DM II Objective - Vital Signs Vital signs: Vital Signs - 12hr 03/28/21 04:43 Temperature 122.0 F H Pulse Rate 74 Respiratory 17 Rate Blood Pressure 161/63 O2 Sat by Pulse 99 Oximetry - Lab 03/28/21 04:27 03/28/21 04:27 Most recent lab results ABG pH 7.364 (7.320-7.450) 03/26/21 18:40 ABG O2 Saturation 91.4 (0-100) 03/26/21 18:40 Calcium 7.8 mg/dL (8.4-10.2) L 03/28/21 04:27 Medications & Allergies - Medications Allergies/Adverse Reactions: Allergies No Known Allergies Allergy (Verified 03/24/21 21:46) Home Medications: Home Medications Medication Instructions Recorded Confirmed Last Taken Type Amlodipine Besylate [Norvasc] 10 mg PO DAILY 03/25/21 03/25/21 03/24/21 10:00 History AtorvaSTATin [Lipitor] 40 mg PO QHS 03/25/21 03/25/21 03/24/21 21:00 History Diclofenac 1% [Diclofenac 1% 100 gm TP QID 03/25/21 03/25/21 03/24/21 21:00 History topical gel] Gabapentin [Neurontin] 100 mg PO DAILY 03/25/21 03/25/21 03/24/21 21:00 History Nitrofurantoin Macrocrystal 100 mg PO BID 03/25/21 03/25/21 03/24/21 21:00 History [Nitrofurantoin] hydroCHLOROthiazide [HCTZ] 25 mg PO DAILY 03/25/21 03/25/21 03/24/21 10:00 History lisinopriL [Zestril TAB] 40 mg PO QDAY 03/25/21 03/25/21 03/24/21 10:00 History metFORMIN [Glucophage] 500 mg PO BID 03/25/21 03/25/21 03/24/21 17:00 History Insulin NPH/Regular [NovoLIN 70/30] 10 units SQ BID 03/26/21 03/26/21 Unknown History Active Medications: Generic Name Dose Route Start Last Admin Trade Name Freq PRN Reason Stop Dose Admin Acetaminophen 650 mg 03/25/21 10:30 03/25/21 10:56 Acetaminophen 325 Mg Tab PO 650 mg Q4H PRN Administration Pain MILD(1-3)/Fever >100.5/GUAJARDO Hydrocodone Bitart/Acetaminophen 2 each 03/25/21 10:30 03/26/21 14:13 Hydrocodone/Acetaminophen 5-325 Mg Tab PO 2 each Q6H PRN Administration Pain, Moderate (4-6) Atorvastatin Calcium 40 mg 03/25/21 22:00 03/27/21 21:20 Atorvastatin 40 Mg Tab PO 40 mg QHS PHONG Administration Enoxaparin Sodium 30 mg 03/27/21 22:00 03/27/21 21:20 Enoxaparin 30 Mg/0.3 Ml Inj SUB-Q 30 mg QHS PHONG Administration Hydralazine HCl 5 mg 03/25/21 10:30 Hydralazine 20 Mg/1 Ml Inj IV Q30MIN PRN Hypertension Hydromorphone HCl 1 mg 03/26/21 15:00 Hydromorphone 1 Mg/1 Ml Inj IV Q2H PRN Pain , Severe (7-10) Hydromorphone HCl 2 mg 03/28/21 11:49 Hydromorphone 2 Mg/1 Ml Inj IV Q4H PRN Pain , Severe (7-10) Sodium Chloride 1,000 mls @ 100 mls/hr 03/25/21 11:00 03/28/21 02:36 Nacl 0.9% 1000 Ml IV 100 mls/hr DIRECT PHONG Administration Piperacillin Sod/Tazobactam Sod 2.25 gm in 50 mls @ 100 mls/hr 03/26/21 14:00 03/28/21 13:58 Zosyn/Ns 2.25 Gm/50ml IV 100 mls/hr Q6HR PHONG Administration Insulin Human Isoph/Insulin Regular 15 unit 03/28/21 15:00 Insulin Nph/Regular 70/30 Inj SUB-Q BID PHONG Insulin Human Regular 0 units 03/26/21 22:00 03/28/21 12:58 Insulin Regular, Human 100 Units/1 Ml SUB-Q 8 units ACHS PHONG Administration Protocol Methylprednisolone Sodium Succinate 40 mg 03/29/21 02:00 Methylprednisolone Sod Succinate 40 Mg/1 Ml Inj IV Q24H PHONG Ondansetron HCl 4 mg 03/25/21 10:30 03/25/21 18:18 Ondansetron 4 Mg/2 Ml Inj IV 4 mg Q8H PRN Administration Nausea And Vomiting Oxycodone HCl 20 mg 03/28/21 13:00 03/28/21 14:00 Oxycodone Er 20 Mg Tab PO 20 mg Q12HR PHONG Administration Sodium Bicarbonate 650 mg 03/27/21 10:30 03/28/21 09:57 Sodium Bicarbonate 650 Mg Tab PO 650 mg BID PHONG Administration Sodium Polystyrene Sulfonate 15 gm 03/27/21 10:00 Sodium Polystyrene 15 Gm/60 Ml Oral Liqd PO Q6H PRN Hyperkalemia
[2021-03-29] MEDS: PIPERACIL-TAZO 2.25 GM/50 ML 2.25 GM/50 ML BAG IV SCH ×5 (00:01→23:27)
[2021-03-29] MEDS: ENOXAPARIN 30 MG/0.3 ML INJ SUB-Q SCH ×2 (00:01→21:56)
[2021-03-29] MEDS: INSULIN REGULAR, HUMAN 100 UNITS/1 ML SUB-Q SCH ×5 (00:29→21:57)
[2021-03-29] MEDS: methylPREDNISolone Sod Succinate 40 MG/1 ML INJ IV SCH (01:17)
[2021-03-29] MEDS: INSULIN NPH/REGULAR 70/30 INJ SUB-Q SCH ×5 (01:18→21:56)
[2021-03-29 06:55] LABS: Calcium 7.8 mg/dL (8.4-10.2)
--- NOTE | 2021-03-29 08:49 | Progress Note ---
Assessment and Plan 1. Acute kidney injury: Vasomotor GREGOR superimposed on CKD in the setting of volume depletion / hypotension. Patient is also suspected of Myeloproliferative disorder. CT abdomen negative for hydro. Urine studies ordered. Continue IV fluids. Monitor renal function. Creatinine level is improving. Avoid nephrotoxic agents. Meds dosage based on GFR. 2. FEN: Hyperkalemia, improved, monitor. Metabolic acidosis, monitor. Hyponatremia, monitor. Monitor volume status and lytes. 3. Status post fall: CT head without any acute process. Monitor. 4. Severe pelvic pain: Likely 2/[address] abdomen pelvis x-ray soft tissue injury without any sign of fracture. Pain management. 5. Leukocytosis: Followed by ID. Heme-onc on board for possible myeloproliferative disorder. 6. Hypotensive episode: Resolved following IV fluid bolus. 7. Normocytic anemia with thrombocytosis: Monitor. Heme-onc on board. 8. Encephalopathy: Metabolic. Improved / improving. Subjective: Patient was seen and examined at the bedside. Objective: General appearance: well-developed, appears stated age, not in distress HEENT: ATNC Neck: trachea midline Respiratory: diminished breath sounds Heart: S1S2, regular, no murmur Abdomen: soft, normoactive bowel sounds, not tender Integumentary: no obvious rash Ext: no edema Neurologic: alert, able to move extremities Subjective Date of service: 03/29/21 Principal diagnosis: Ac. hypoxemic resp failure; S/P fall; Leukocytosis; DM II Objective - Vital Signs Vital signs: Vital Signs - 12hr 03/28/21 03/28/21 03/29/21 22:00 23:48 04:04 Temperature 97.6 F 97.7 F Pulse Rate 74 71 73 Respiratory 17 17 Rate Blood Pressure 165/68 155/66 O2 Sat by Pulse 94 97 Oximetry - Lab 03/30/21 05:38 03/30/21 05:38 Most recent lab results ABG pH 7.364 (7.320-7.450) 03/26/21 18:40 ABG O2 Saturation 91.4 (0-100) 03/26/21 18:40 Calcium 7.8 mg/dL (8.4-10.2) L 03/29/21 05:09 Medications & Allergies - Medications Allergies/Adverse Reactions: Allergies No Known Allergies Allergy (Verified 03/24/21 21:46) Home Medications: Home Medications Medication Instructions Recorded Confirmed Last Taken Type Amlodipine Besylate [Norvasc] 10 mg PO DAILY 03/25/21 03/25/21 03/24/21 10:00 History AtorvaSTATin [Lipitor] 40 mg PO QHS 03/25/21 03/25/21 03/24/21 21:00 History Diclofenac 1% [Diclofenac 1% 100 gm TP QID 03/25/21 03/25/21 03/24/21 21:00 History topical gel] Gabapentin [Neurontin] 100 mg PO DAILY 03/25/21 03/25/21 03/24/21 21:00 History Nitrofurantoin Macrocrystal 100 mg PO BID 03/25/21 03/25/21 03/24/21 21:00 History [Nitrofurantoin] hydroCHLOROthiazide [HCTZ] 25 mg PO DAILY 03/25/21 03/25/21 03/24/21 10:00 History lisinopriL [Zestril TAB] 40 mg PO QDAY 03/25/21 03/25/21 03/24/21 10:00 History metFORMIN [Glucophage] 500 mg PO BID 03/25/21 03/25/21 03/24/21 17:00 History Insulin NPH/Regular [NovoLIN 70/30] 10 units SQ BID 03/26/21 03/26/21 Unknown History Active Medications: Generic Name Dose Route Start Last Admin Trade Name Freq PRN Reason Stop Dose Admin Acetaminophen 650 mg 03/25/21 10:30 03/25/21 10:56 Acetaminophen 325 Mg Tab PO 650 mg Q4H PRN Administration Pain MILD(1-3)/Fever >100.5/GUAJARDO Hydrocodone Bitart/Acetaminophen 2 each 03/25/21 10:30 03/26/21 14:13 Hydrocodone/Acetaminophen 5-325 Mg Tab PO 2 each Q6H PRN Administration Pain, Moderate (4-6) Atorvastatin Calcium 40 mg 03/25/21 22:00 03/28/21 23:59 Atorvastatin 40 Mg Tab PO 40 mg QHS PHONG Administration Enoxaparin Sodium 30 mg 03/27/21 22:00 03/29/21 00:01 Enoxaparin 30 Mg/0.3 Ml Inj SUB-Q 30 mg QHS PHONG Administration Hydralazine HCl 5 mg 03/25/21 10:30 Hydralazine 20 Mg/1 Ml Inj IV Q30MIN PRN Hypertension Hydromorphone HCl 1 mg 03/26/21 15:00 Hydromorphone 1 Mg/1 Ml Inj IV Q2H PRN Pain , Severe (7-10) Hydromorphone HCl 2 mg 03/28/21 11:49 Hydromorphone 2 Mg/1 Ml Inj IV Q4H PRN Pain , Severe (7-10) Sodium Chloride 1,000 mls @ 100 mls/hr 03/25/21 11:00 03/28/21 02:36 Nacl 0.9% 1000 Ml IV 100 mls/hr DIRECT PHONG Administration Piperacillin Sod/Tazobactam Sod 2.25 gm in 50 mls @ 100 mls/hr 03/26/21 14:00 03/29/21 05:21 Zosyn/Ns 2.25 Gm/50ml IV 100 mls/hr Q6HR PHONG Administration Insulin Human Isoph/Insulin Regular 15 unit 03/28/21 15:00 03/29/21 08:39 Insulin Nph/Regular 70/30 Inj SUB-Q Not Given BID [facility] Insulin Human Regular 0 units 03/26/21 22:00 03/29/21 00:29 Insulin Regular, Human 100 Units/1 Ml SUB-Q 6 units ACHS PHONG Administration Protocol Methylprednisolone Sodium Succinate 40 mg 03/29/21 02:00 03/29/21 01:17 Methylprednisolone Sod Succinate 40 Mg/1 Ml Inj IV 40 mg Q24H PHONG Administration Ondansetron HCl 4 mg 03/25/21 10:30 03/25/21 18:18 Ondansetron 4 Mg/2 Ml Inj IV 4 mg Q8H PRN Administration Nausea And Vomiting Oxycodone HCl 20 mg 03/28/21 13:00 03/28/21 23:59 Oxycodone Er 20 Mg Tab PO 20 mg Q12HR PHONG Administration Sodium Bicarbonate 650 mg 03/27/21 10:30 03/28/21 23:59 Sodium Bicarbonate 650 Mg Tab PO 650 mg BID PHONG Administration Sodium Polystyrene Sulfonate 15 gm 03/27/21 10:00 Sodium Polystyrene 15 Gm/60 Ml Oral Liqd PO Q6H PRN Hyperkalemia
[2021-03-29] MEDS: oxyCODONE ER 20 MG TAB PO SCH ×2 (09:04→21:57)
[2021-03-29] MEDS: SODIUM BICARBONATE 650 MG TAB PO SCH ×2 (09:04→21:57)
--- NOTE | 2021-03-29 09:11 | Consultation ---
History of Present Illness - Reason for Consult Consult date: 03/29/21 Hip pain - History of Present Illness Patient with history of fall and bilateral hip pain. Additionally, the patient has leukocytosis. She complains of point tenderness at her right greater than left sacrum. Medications and Allergies Allergies Allergy/AdvReac Type Severity Reaction Status Date / Time No Known Allergies Allergy Verified 03/24/21 21:46 Home Medications Medication Instructions Recorded Confirmed Last Taken Type Amlodipine Besylate [Norvasc] 10 mg PO DAILY 03/25/21 03/25/21 03/24/21 10:00 History AtorvaSTATin [Lipitor] 40 mg PO QHS 03/25/21 03/25/21 03/24/21 21:00 History Diclofenac 1% [Diclofenac 1% 100 gm TP QID 03/25/21 03/25/21 03/24/21 21:00 History topical gel] Gabapentin [Neurontin] 100 mg PO DAILY 03/25/21 03/25/21 03/24/21 21:00 History Nitrofurantoin Macrocrystal 100 mg PO BID 03/25/21 03/25/21 03/24/21 21:00 History [Nitrofurantoin] hydroCHLOROthiazide [HCTZ] 25 mg PO DAILY 03/25/21 03/25/21 03/24/21 10:00 History lisinopriL [Zestril TAB] 40 mg PO QDAY 03/25/21 03/25/21 03/24/21 10:00 History metFORMIN [Glucophage] 500 mg PO BID 03/25/21 03/25/21 03/24/21 17:00 History Insulin NPH/Regular [NovoLIN 70/30] 10 units SQ BID 03/26/21 03/26/21 Unknown History Active Meds: Active Medications Acetaminophen (Acetaminophen 325 Mg Tab) 650 mg PO Q4H PRN PRN Reason: Pain MILD(1-3)/Fever >100.5/GUAJARDO Last Admin: 03/25/21 10:56 Dose: 650 mg Documented by: Hydrocodone Bitart/Acetaminophen (Hydrocodone/Acetaminophen 5-325 Mg Tab) 2 each PO Q6H PRN PRN Reason: Pain, Moderate (4-6) Last Admin: 03/26/21 14:13 Dose: 2 each Documented by: Atorvastatin Calcium (Atorvastatin 40 Mg Tab) 40 mg PO QHS PHONG Last Admin: 03/28/21 23:59 Dose: 40 mg Documented by: Enoxaparin Sodium (Enoxaparin 30 Mg/0.3 Ml Inj) 30 mg SUB-Q QHS [facility] Last Admin: 03/29/21 00:01 Dose: 30 mg Documented by: Hydralazine HCl (Hydralazine 20 Mg/1 Ml Inj) 5 mg IV Q30MIN PRN PRN Reason: Hypertension Hydromorphone HCl (Hydromorphone 1 Mg/1 Ml Inj) 1 mg IV Q2H PRN PRN Reason: Pain , Severe (7-10) Hydromorphone HCl (Hydromorphone 2 Mg/1 Ml Inj) 2 mg IV Q4H PRN PRN Reason: Pain , Severe (7-10) Sodium Chloride (Nacl 0.9% 1000 Ml) 1,000 mls @ 100 mls/hr IV DIRECT [facility] Last Admin: 03/28/21 02:36 Dose: 100 mls/hr Documented by: Piperacillin Sod/Tazobactam Sod (Zosyn/Ns 2.25 Gm/50ml) 2.25 gm in 50 mls @ 100 mls/hr IV Q6HR [facility] Last Admin: 03/29/21 05:21 Dose: 100 mls/hr Documented by: Insulin Human Isoph/Insulin Regular (Insulin Nph/Regular 70/30 Inj) 22 unit SUB-Q BID [facility] Insulin Human Regular (Insulin Regular, Human 100 Units/1 Ml) 0 units SUB-Q ACHS [facility]; Protocol Last Admin: 03/29/21 00:29 Dose: 6 units Documented by: Methylprednisolone Sodium Succinate (Methylprednisolone Sod Succinate 40 Mg/1 Ml Inj) 40 mg IV Q24H [facility] Last Admin: 03/29/21 01:17 Dose: 40 mg Documented by: Ondansetron HCl (Ondansetron 4 Mg/2 Ml Inj) 4 mg IV Q8H PRN PRN Reason: Nausea And Vomiting Last Admin: 03/25/21 18:18 Dose: 4 mg Documented by: Oxycodone HCl (Oxycodone Er 20 Mg Tab) 20 mg PO Q12HR [facility] Last Admin: 03/28/21 23:59 Dose: 20 mg Documented by: Sodium Bicarbonate (Sodium Bicarbonate 650 Mg Tab) 650 mg PO BID [facility] Last Admin: 03/28/21 23:59 Dose: 650 mg Documented by: Sodium Polystyrene Sulfonate (Sodium Polystyrene 15 Gm/60 Ml Oral Liqd) 15 gm PO Q6H PRN PRN Reason: Hyperkalemia Review of Systems ROS unobtainable: due to mental status (Language barrier) Exam - Constitutional Vitals: Temp Pulse Resp BP Pulse Ox 97.7 F 73 17 155/66 97 03/29/21 04:04 03/29/21 04:04 03/29/21 04:04 03/29/21 04:04 03/29/21 04:04 General appearance: Present: no acute distress - EENT Eyes: Present: EOM intact ENT: hearing intact - Respiratory Respiratory effort: normal - Extremities Extremities: abnormal (Pain with palpation over bilateral SI joints right greater than left) - Abdominal General gastrointestinal: Present: deferred Female genitourinary: Present: deferred - Rectal Rectal Exam: deferred Results - Labs CBC & Chem 7: 03/28/21 04:27 03/29/21 05:09 Labs: Abnormal lab results 03/28/21 03/28/21 03/28/21 Range/Units 08:46 11:28 16:09 Sodium (137-145) mmol/L Carbon Dioxide (22-30) mmol/L BUN (7-17) mg/dL Creatinine (0.6-1.2) mg/dL Glucose (65-100) mg/dL POC Glucose 337 H 367 H 348 H (70-105) mg/dL Calcium (8.4-10.2) mg/dL 03/29/21 03/29/21 03/29/21 Range/Units 00:12 05:09 07:58 Sodium 135 L (137-145) mmol/L Carbon Dioxide 20 L (22-30) mmol/L BUN 49 H (7-17) mg/dL Creatinine 1.7 H (0.6-1.2) mg/dL Glucose 316 H (65-100) mg/dL POC Glucose 372 H 294 H (70-105) mg/dL Calcium 7.8 L (8.4-10.2) mg/dL - Imaging and Cardiology CT scan - abdomen: image reviewed CT scan - pelvis: image reviewed MRI - abdomen: image reviewed Assessment and Plan Patient with history of fall. No fracture noted. The patient is noted to have a trace amount of fluid within the joint. On CT scan, there is a lucency in her right sacrum demonstrated on fluid sensitive sequences on MRI. I the patient may benefit from a bone marrow biopsy. We will order right sacral bone biopsy.
--- NOTE | 2021-03-29 12:29 | Progress Note ---
Assessment and Plan Status post fall -CT head without any acute process -Patient has no focal deficit -Continue to monitor clinically and PT eval when clinically more stable Severe pelvic pain -Likely traumatic following fall -CT abdomen pelvis x-ray soft tissue injury without any sign of fracture -Pain management as needed -pelvic and lumbar spine MRI: degenerative changes,fluid collection seen at right SI joint and torn tendons, Ortho recommend no surgical intervention needed. IR consulted and recommended BM biopsy Leukocytosis with WBC > 31K -patient on empiric antibiotic -ID on board and neg culture -Heme-onc on board for possible myeloproliferative disorder - started on steroid -Ordered bone scan showed no osseous malignancy - planned for BM biopsy GREGOR, vasomotor nephropathy -Continue gentle IV fluid hydration, BMP daily -Consulted nephrology, avoid nephrotoxins DM type 2 -Consistent carb diet placed on SSI, ordered A1c and nephrology paged Hyponatrenia, likely due to dehydration, continue IV fluid Hypotensive episode, resolved following IV fluid boluses Normocytic anemia with thrombocytosis -Monitor H&H follow clinically -Heme-onc on board Hypotension, likely from dehydration continue IV fluid DVT prophylaxis with Lovenox Daily clinical course: 03/25/21: Following admission patient noted to be hypotensive, given IV fluid boluses and continued fluid with maintenance rate. Plan to transfer to ICU to start on pressor if BP does not improve with fluid challenge. 03/26/21: Patient continues to complains of pelvic pain. Noted to have CVA tenderness over the right ischeal tuberosity. Will Obtain pelvic MRI with contrast and lumbar spine MRI evaluation for possible epidural abscess, discitis, rectal ischial abscess, continue empiric antibiotics for now, ID following. Heme-onc consulted possible underlying myeloproliferative disorder we will follow pending labs- 03/27: Cr trending up - consult nephrology, MRI pelvis pending, ordered bone scan per heam recommendation. started on steroid. follow BMP, trend Cr 03/28: No fracture seen on xray/mri scan but fluid collection seen at right SI joint and torn tendons, Ortho recommend CT guided aspiration right SI chase nt/pelvic areas - IR consulted. Cr slightly improved, cont to follow BMP. cont steroid, follow CBC 03/29: Renal function remains stable, patient stated that she is slightly feeling better today. Discussed with IR and recommending bone marrow biopsy from right ischium -order placed. Patient remains on steroid pulse dose for possible myeloproliferative disorder. Continue to follow clinically. Will order for PT eval following bone marrow biopsy. Subjective Date of service: 03/29/21 Principal diagnosis: Ac. hypoxemic resp failure; S/P fall; Leukocytosis; DM II Interval history: Patient seen and examined. Medical records and medication list reviewed. No acute event overnight noted by the RN. Patient states pelvic pain much improved Discussed plan of care at bedside with patient. Objective - Exam Narrative Exam: GENERAL: well-developed and well-nourished elderly female appears in moderate distress HEENT: Normocephalic. Atraumatic. No conjunctival congestion or icterus. Patient has moist mucous membranes. NECK: Supple. Trachea midline. CHEST/LUNGS: Clear to auscultated bilaterally, breathing nonlabored. No wheezes crackles or rhonchi. HEART/CARDIOVASCULAR: Regular in rate and rhythm. S1 and S2 positive. ABDOMEN: Abdomen is soft, nontender. Patient has normal bowel sounds. SKIN: There is no rash. Warm and dry. NEURO: No focal motor deficit. Follows command. MUSCULOSKELETAL: No joint effusion EXTRIMITY: No edema, no cyanosis or clubbing. PSYCH: Cooperative. - Constitutional Vitals: Vital Signs - 12hr 03/29/21 03/29/21 04:04 10:00 Temperature 97.7 F Pulse Rate 73 69 Respiratory 17 Rate Blood Pressure 155/66 O2 Sat by Pulse 97 Oximetry - Labs CBC & Chem 7: 03/30/21 05:38 03/30/21 05:38 Labs: Abnormal lab results 03/28/21 03/28/21 03/29/21 Range/Units 11:28 16:09 00:12 Sodium (137-145) mmol/L Carbon Dioxide (22-30) mmol/L BUN (7-17) mg/dL Creatinine (0.6-1.2) mg/dL Glucose (65-100) mg/dL POC Glucose 367 H 348 H 372 H (70-105) mg/dL Calcium (8.4-10.2) mg/dL 03/29/21 03/29/21 Range/Units 05:09 07:58 Sodium 135 L (137-145) mmol/L Carbon Dioxide 20 L (22-30) mmol/L BUN 49 H (7-17) mg/dL Creatinine 1.7 H (0.6-1.2) mg/dL Glucose 316 H (65-100) mg/dL POC Glucose 294 H (70-105) mg/dL Calcium 7.8 L (8.4-10.2) mg/dL
[2021-03-29] MEDS: SODIUM CHLORIDE 0.9% 1000 ML 1,000 ML IV SCH (14:20)
--- NOTE | 2021-03-29 14:23 | Progress Note ---
Assessment and Plan Cultures: Blood culture 03/25/2021 no growth today MRSA PCR negative Assessment: 75-year-old female with history of hypertension, diabetes, admitted on 03/24/2021 secondary to a fall in the bathroom at home pain for several months: #Leukocytosis and thrombocytosis: better 34K--->28K. Of unclear etiology. Reactive secondary to Pelvic trauma/infection?. Patient complaining of pelvic pain for several months. CT abdomen shows fluid tracks along the right medial acetabulum and thickening of the sacrospinosus ligament. Abdominal CT otherwise unremarkable. Patient denies any weight loss. Patient is not the best historian. Elevated procalcitonin in the setting of acute kidney injury. #Bilateral ischial pain R>L: On exam severe tenderness noted mild induration on right ischeal area ? Abscess ? Hematoma ?osteo. Patient reports pain has been there for several weeks and radiates to the right foot. CRP 26--->20. Pelvic MRI with ischial osteomyeltiis?, near completion thorough for the right obturator intrnist muscle with hematoma in right pitifomis. Also right ischiofemoral impingement with complete tear quadratus femoralitis. Lumbar MRI with severe DJD. #Anemia #Elevated LFTs: Mild, AST 46. Unclear etiology, CT without cholecystitis. #GREGOR: Creatinine up Recommendations: -Agree with bone biopsy -Repeat CRP -Continue Zosyn IV for now -Heme-onc on board Discussed with attending Dr Krause Will follow. Gillian Arambula MD Infectious Diseases [employer] [facility] M [phone] O [phone] Subjective Date of service: 03/29/21 Principal diagnosis: Ac. hypoxemic resp failure; S/P fall; Leukocytosis; DM II Interval history: Patient feels much better, report decreased ischial pain. No fever. Objective - Exam Narrative Exam: General appearance: Alert in no acute distress Eyes: anicteric sclerae, moist conjunctivae; no lid-lag; PERRLA HENT: Normocephalic, Atraumatic; normal external ears, nares open, oropharynx limited Lungs: CTA CV: RRR no murmur Abdomen: Soft, non-tender; no masses or hepatosplenomegaly Extremities: no edema, no cyanosis, bilateral ischial area tenderness Skin: Ischial tenderness improved Psych: No agitated Neuro: No agitated - Constitutional Vitals: Vital Signs Temp Pulse Resp BP Pulse Ox 97.7 F 69 17 155/66 97 03/29/21 04:04 03/29/21 10:00 03/29/21 04:04 03/29/21 04:04 03/29/21 04:04 Temperature -Last 24 Hours Temperature 97.7 F Temperature 97.6 F Temperature 97.7 F - Labs CBC & Chem 7: 03/28/21 04:27 03/29/21 05:09 Labs: Abnormal lab results 03/28/21 03/28/21 03/29/21 Range/Units 11:28 16:09 00:12 Sodium (137-145) mmol/L Carbon Dioxide (22-30) mmol/L BUN (7-17) mg/dL Creatinine (0.6-1.2) mg/dL Glucose (65-100) mg/dL POC Glucose 367 H 348 H 372 H (70-105) mg/dL Calcium (8.4-10.2) mg/dL 03/29/21 03/29/21 03/29/21 Range/Units 05:09 07:58 11:16 Sodium 135 L (137-145) mmol/L Carbon Dioxide 20 L (22-30) mmol/L BUN 49 H (7-17) mg/dL Creatinine 1.7 H (0.6-1.2) mg/dL Glucose 316 H (65-100) mg/dL POC Glucose 294 H 249 H (70-105) mg/dL Calcium 7.8 L (8.4-10.2) mg/dL
--- NOTE | 2021-03-29 15:34 | Progress Note ---
Assessment and Plan Acute hypoxemic respiratory failure Status post fall without acute fracture Leukocytosis, etiology unclear History of cervical cancer Diabetes type 2 Systemic inflammatory response syndrome - conservative management per orthopedic surgeon - continue care as below otherwise; - continue supplemental oxygen to keep O2 sats > 90% - continue Bronchodilators (MOISES) with pulm hygiene per RT - taper off systemic steroids - continue to avoid nephrotoxins, renally dose all medications - continue mobility protocols to prevent pressure ulcers - PT/OT as tolerated - Wound care per RN/WCT - accuchecks with glycemic control per SSI for target blood glucose < 180 mg/dL - prn analgesia per pain score - home oxygen evaluation at discharge - GI & VTE prophylaxis - Flu & pneumovax per protocol - Pulmonary out patient follow up for PFTs and optimization of respiratory status - continue other care per attending / other consultants ... re-evaluate in am & prn Subjective Date of service: 03/28/21 Principal diagnosis: Ac. hypoxemic resp failure; S/P fall; Leukocytosis; DM II Interval history: Patient is seen today for: Acute hypoxemic respiratory failure; S/P fall; Leukocytosis; H/O cervical cancer; DM II; SIRS Seen and examined at bedside; 24hour events reviewed; nursing and respiratory care staff consulted; no adverse overnight events reported to me; resting peacefully in bed; less SOB; leg pain a little better; no emesis or overt aspiration Objective Vital Signs - 12hr 03/28/21 04:43 Temperature 122.0 F H Pulse Rate 74 Respiratory 17 Rate Blood Pressure 161/63 O2 Sat by Pulse 99 Oximetry Constitutional: appears uncomfortable, other (elderly female with mildly increased respiratory effort at rest) Eyes: non-icteric ENT: oropharynx moist Neck: supple, no lymphadenopathy, no JVD Effort: mildly labored Ascultation: Bilateral: diminished breath sounds, rhonchi (scant) Percussion: Bilateral: not dull Cardiovascular: regular rate and rhythm Gastrointestinal: normoactive bowel sounds, soft, non-tender, non-distended Integumentary: normal Extremities: no cyanosis, pink and warm, pulses normal, no ischemia or petechiae Neurologic: non-focal exam (grossly), pupils equal and round, CN II-XII normal Psychiatric: anxious CBC and BMP: 03/28/21 04:27 03/29/21 05:09 ABG, PT/INR, D-dimer: ABG ABG pH 7.364 (7.320-7.450) 03/26/21 18:40 POC ABG pCO2 33.3 mmHg (32.0-48.0) 03/26/21 18:40 POC ABG pO2 62.7 mmHg (83-108) L 03/26/21 18:40 POC ABG HCO3 18.6 03/26/21 18:40 ABG O2 Saturation 91.4 (0-100) 03/26/21 18:40 PT/INR, D-dimer PT 15.0 Sec. (12.2-14.9) H 03/24/21 21:46 INR 1.20 (0.87-1.13) H 03/24/21 21:46 D-Dimer 3944.31 ng/mlDDU (0-234) H 03/26/21 18:36 Abnormal lab findings: Abnormal Labs 03/24/21 03/24/21 03/24/21 21:46 21:46 21:46 WBC 31.4 H RBC 2.80 L Hgb 7.8 L Hct 23.6 L MCH RDW 16.1 H Plt Count 548 H Seg Neuts % (Manual) 90.0 H Lymphocytes % (Manual) 4.0 L Seg Neutrophils # Man 28.3 H Monocytes # (Manual) 1.3 H PT 15.0 H INR 1.20 H APTT 38.2 H D-Dimer POC ABG pO2 ABG Hemoglobin ABG Oxyhemoglobin ABG Sodium ABG Potassium ABG Glucose Sodium 126 L Potassium Chloride 90.5 L Carbon Dioxide BUN 34 H Creatinine Glucose 228 H POC Glucose Hemoglobin A1c Calcium 8.1 L Iron TIBC Ferritin AST Alkaline Phosphatase C-Reactive Protein Total Protein Albumin Arterial Blood Glucose Arterial Blood Ionized Calcium 03/24/21 03/25/21 03/25/21 21:46 00:16 08:42 WBC 34.0 H RBC 3.08 L Hgb 8.6 L Hct 25.8 L MCH RDW 16.6 H Plt Count 627 H Seg Neuts % (Manual) 89.0 H Lymphocytes % (Manual) 6.0 L Seg Neutrophils # Man 30.3 H Monocytes # (Manual) 1.4 H PT INR APTT D-Dimer POC ABG pO2 ABG Hemoglobin ABG Oxyhemoglobin ABG Sodium ABG Potassium ABG Glucose Sodium Potassium Chloride Carbon Dioxide BUN Creatinine Glucose POC Glucose 167 H Hemoglobin A1c Calcium Iron TIBC Ferritin AST 46 H Alkaline Phosphatase 235 H C-Reactive Protein Total Protein 5.7 L Albumin 2.4 L Arterial Blood Glucose Arterial Blood Ionized Calcium 03/25/21 03/25/21 03/25/21 11:01 16:28 19:04 WBC RBC Hgb Hct MCH RDW Plt Count Seg Neuts % (Manual) Lymphocytes % (Manual) Seg Neutrophils # Man Monocytes # (Manual) PT INR APTT D-Dimer POC ABG pO2 ABG Hemoglobin ABG Oxyhemoglobin ABG Sodium ABG Potassium ABG Glucose Sodium Potassium Chloride Carbon Dioxide BUN Creatinine Glucose POC Glucose 249 H 227 H Hemoglobin A1c Calcium Iron TIBC Ferritin AST Alkaline Phosphatase C-Reactive Protein 26.30 H Total Protein Albumin Arterial Blood Glucose Arterial Blood Ionized Calcium 03/25/21 03/26/21 03/26/21 20:48 05:22 10:24 WBC 31.0 H RBC 2.91 L Hgb 8.1 L Hct 24.7 L MCH RDW 16.8 H Plt Count 502 H Seg Neuts % (Manual) Lymphocytes % (Manual) Seg Neutrophils # Man Monocytes # (Manual) PT INR APTT D-Dimer POC ABG pO2 ABG Hemoglobin ABG Oxyhemoglobin ABG Sodium ABG Potassium ABG Glucose Sodium 132 L Potassium Chloride Carbon Dioxide BUN 35 H Creatinine 1.6 H Glucose 195 H POC Glucose 217 H Hemoglobin A1c Calcium 7.6 L Iron TIBC Ferritin AST Alkaline Phosphatase 198 H C-Reactive Protein Total Protein 6.1 L Albumin 1.9 L Arterial Blood Glucose Arterial Blood Ionized Calcium 03/26/21 03/26/21 03/26/21 16:15 18:36 18:40 WBC RBC Hgb Hct MCH RDW Plt Count Seg Neuts % (Manual) Lymphocytes % (Manual) Seg Neutrophils # Man Monocytes # (Manual) PT INR APTT D-Dimer 3944.31 H POC ABG pO2 62.7 L ABG Hemoglobin 7.7 L ABG Oxyhemoglobin 90.5 L ABG Sodium 124.6 L ABG Potassium 4.8 H ABG Glucose 275 H Sodium Potassium Chloride Carbon Dioxide BUN Creatinine Glucose POC Glucose 187 H Hemoglobin A1c Calcium Iron TIBC Ferritin AST Alkaline Phosphatase C-Reactive Protein Total Protein Albumin Arterial Blood Glucose 275 H Arterial Blood Ionized Calcium 4.4 L 05/03/27/21 03/27/21 21:03 04:44 04:44 WBC RBC Hgb Hct MCH RDW Plt Count Seg Neuts % (Manual) Lymphocytes % (Manual) Seg Neutrophils # Man Monocytes # (Manual) PT INR APTT D-Dimer POC ABG pO2 ABG Hemoglobin ABG Oxyhemoglobin ABG Sodium ABG Potassium ABG Glucose Sodium Potassium Chloride Carbon Dioxide BUN Creatinine Glucose POC Glucose 246 H Hemoglobin A1c Calcium Iron 18 L TIBC 107 L Ferritin 1071.0 H AST Alkaline Phosphatase C-Reactive Protein Total Protein Albumin Arterial Blood Glucose Arterial Blood Ionized Calcium 03/27/21 03/27/21 03/27/21 04:44 04:44 07:50 WBC RBC Hgb Hct MCH RDW Plt Count Seg Neuts % (Manual) Lymphocytes % (Manual) Seg Neutrophils # Man Monocytes # (Manual) PT INR APTT D-Dimer POC ABG pO2 ABG Hemoglobin ABG Oxyhemoglobin ABG Sodium ABG Potassium ABG Glucose Sodium 129 L Potassium 5.6 H Chloride 97.4 L Carbon Dioxide 18 L BUN 37 H Creatinine 1.9 H Glucose 260 H POC Glucose 281 H Hemoglobin A1c 9.9 H Calcium 7.9 L Iron TIBC Ferritin AST Alkaline Phosphatase C-Reactive Protein Total Protein Albumin Arterial Blood Glucose Arterial Blood Ionized Calcium 03/27/21 03/27/21 03/27/21 13:17 15:36 17:38 WBC 33.0 H RBC 2.74 L Hgb 7.9 L Hct 23.3 L MCH RDW 17.1 H Plt Count 526 H Seg Neuts % (Manual) Lymphocytes % (Manual) Seg Neutrophils # Man Monocytes # (Manual) PT INR APTT D-Dimer POC ABG pO2 ABG Hemoglobin ABG Oxyhemoglobin ABG Sodium ABG Potassium ABG Glucose Sodium Potassium Chloride Carbon Dioxide BUN Creatinine Glucose POC Glucose 322 H 313 H Hemoglobin A1c Calcium Iron TIBC Ferritin AST Alkaline Phosphatase C-Reactive Protein Total Protein Albumin Arterial Blood Glucose Arterial Blood Ionized Calcium 03/27/21 03/27/21 03/27/21 17:38 17:38 21:33 WBC RBC Hgb Hct MCH RDW Plt Count Seg Neuts % (Manual) Lymphocytes % (Manual) Seg Neutrophils # Man Monocytes # (Manual) PT INR APTT D-Dimer POC ABG pO2 ABG Hemoglobin ABG Oxyhemoglobin ABG Sodium ABG Potassium ABG Glucose Sodium 128 L Potassium 5.1 H Chloride 97.3 L Carbon Dioxide 15 L BUN 48 H Creatinine 2.1 H Glucose 316 H POC Glucose 335 H Hemoglobin A1c Calcium 8.0 L Iron TIBC Ferritin AST Alkaline Phosphatase C-Reactive Protein 20.60 H Total Protein Albumin Arterial Blood Glucose Arterial Blood Ionized Calcium 03/28/21 03/28/21 03/28/21 04:27 04:27 08:46 WBC 28.5 H RBC 2.84 L Hgb 7.4 L Hct 23.9 L MCH 26 L RDW 17.0 H Plt Count 573 H Seg Neuts % (Manual) 92.0 H Lymphocytes % (Manual) 6.0 L Seg Neutrophils # Man 26.2 H Monocytes # (Manual) PT INR APTT D-Dimer POC ABG pO2 ABG Hemoglobin ABG Oxyhemoglobin ABG Sodium ABG Potassium ABG Glucose Sodium 134 L Potassium Chloride Carbon Dioxide 19 L BUN 50 H Creatinine 1.9 H Glucose 287 H POC Glucose 337 H Hemoglobin A1c Calcium 7.8 L Iron TIBC Ferritin AST Alkaline Phosphatase C-Reactive Protein Total Protein Albumin Arterial Blood Glucose Arterial Blood Ionized Calcium Allied health notes reviewed: nursing
--- NOTE | 2021-03-29 15:37 | Progress Note ---
Assessment and Plan Acute hypoxemic respiratory failure Status post fall without acute fracture Leukocytosis, etiology unclear History of cervical cancer Diabetes type 2 Systemic inflammatory response syndrome - improving - continue anti-infective's per ID rec's (Zosyn) - taper off Solumedrol ok from respiratory standpoint - tentatively for BMB - conservative management per orthopedic surgeon - continue care as below otherwise; - continue supplemental oxygen to keep O2 sats > 90% - continue Bronchodilators (MOISES) with pulm hygiene per RT - taper off systemic steroids - continue to avoid nephrotoxins, renally dose all medications - continue mobility protocols to prevent pressure ulcers - PT/OT as tolerated - Wound care per RN/WCT - accuchecks with glycemic control per SSI for target blood glucose < 180 mg/dL - prn analgesia per pain score - home oxygen evaluation at discharge - GI & VTE prophylaxis - Flu & pneumovax per protocol - Pulmonary out patient follow up for PFTs and optimization of respiratory status - continue other care per attending / other consultants ... re-evaluate in am & prn Subjective Date of service: 03/29/21 Principal diagnosis: Ac. hypoxemic resp failure; S/P fall; Leukocytosis; DM II Interval history: Patient is seen today for: Acute hypoxemic respiratory failure; S/P fall; Leukocytosis; H/O cervical cancer; DM II; SIRS Seen and examined at bedside; 24hour events reviewed; nursing and respiratory care staff consulted; no adverse overnight events reported to me; resting peacefully in bed; feels a little better; on room air; No N/V/F/C/chest pain Objective Vital Signs - 12hr 03/29/21 03/29/21 04:04 10:00 Temperature 97.7 F Pulse Rate 73 69 Respiratory 17 Rate Blood Pressure 155/66 O2 Sat by Pulse 97 Oximetry Constitutional: no acute distress, other (elderly female without increased respiratory effort at rest) Eyes: non-icteric ENT: oropharynx moist Neck: supple, no lymphadenopathy, no JVD Effort: mildly labored Ascultation: Bilateral: diminished breath sounds Percussion: Bilateral: not dull Cardiovascular: regular rate and rhythm Gastrointestinal: normoactive bowel sounds, soft, non-tender, non-distended Integumentary: normal Extremities: no cyanosis, pink and warm, pulses normal, no ischemia or petechiae Neurologic: non-focal exam (grossly), pupils equal and round, CN II-XII normal Psychiatric: mood appropriate, affect normal CBC and BMP: 03/28/21 04:27 03/29/21 05:09 ABG, PT/INR, D-dimer: ABG ABG pH 7.364 (7.320-7.450) 03/26/21 18:40 POC ABG pCO2 33.3 mmHg (32.0-48.0) 03/26/21 18:40 POC ABG pO2 62.7 mmHg (83-108) L 03/26/21 18:40 POC ABG HCO3 18.6 03/26/21 18:40 ABG O2 Saturation 91.4 (0-100) 03/26/21 18:40 PT/INR, D-dimer PT 15.0 Sec. (12.2-14.9) H 03/24/21 21:46 INR 1.20 (0.87-1.13) H 03/24/21 21:46 D-Dimer 3944.31 ng/mlDDU (0-234) H 03/26/21 18:36 Abnormal lab findings: Abnormal Labs 03/24/21 03/24/21 03/24/21 21:46 21:46 21:46 WBC 31.4 H RBC 2.80 L Hgb 7.8 L Hct 23.6 L MCH RDW 16.1 H Plt Count 548 H Seg Neuts % (Manual) 90.0 H Lymphocytes % (Manual) 4.0 L Seg Neutrophils # Man 28.3 H Monocytes # (Manual) 1.3 H PT 15.0 H INR 1.20 H APTT 38.2 H D-Dimer POC ABG pO2 ABG Hemoglobin ABG Oxyhemoglobin ABG Sodium ABG Potassium ABG Glucose Sodium 126 L Potassium Chloride 90.5 L Carbon Dioxide BUN 34 H Creatinine Glucose 228 H POC Glucose Hemoglobin A1c Calcium 8.1 L Iron TIBC Ferritin AST Alkaline Phosphatase C-Reactive Protein Total Protein Albumin Arterial Blood Glucose Arterial Blood Ionized Calcium 03/24/21 03/25/21 03/25/21 21:46 00:16 08:42 WBC 34.0 H RBC 3.08 L Hgb 8.6 L Hct 25.8 L MCH RDW 16.6 H Plt Count 627 H Seg Neuts % (Manual) 89.0 H Lymphocytes % (Manual) 6.0 L Seg Neutrophils # Man 30.3 H Monocytes # (Manual) 1.4 H PT INR APTT D-Dimer POC ABG pO2 ABG Hemoglobin ABG Oxyhemoglobin ABG Sodium ABG Potassium ABG Glucose Sodium Potassium Chloride Carbon Dioxide BUN Creatinine Glucose POC Glucose 167 H Hemoglobin A1c Calcium Iron TIBC Ferritin AST 46 H Alkaline Phosphatase 235 H C-Reactive Protein Total Protein 5.7 L Albumin 2.4 L Arterial Blood Glucose Arterial Blood Ionized Calcium 03/25/21 03/25/21 03/25/21 11:01 16:28 19:04 WBC RBC Hgb Hct MCH RDW Plt Count Seg Neuts % (Manual) Lymphocytes % (Manual) Seg Neutrophils # Man Monocytes # (Manual) PT INR APTT D-Dimer POC ABG pO2 ABG Hemoglobin ABG Oxyhemoglobin ABG Sodium ABG Potassium ABG Glucose Sodium Potassium Chloride Carbon Dioxide BUN Creatinine Glucose POC Glucose 249 H 227 H Hemoglobin A1c Calcium Iron TIBC Ferritin AST Alkaline Phosphatase C-Reactive Protein 26.30 H Total Protein Albumin Arterial Blood Glucose Arterial Blood Ionized Calcium 03/25/21 03/26/21 03/26/21 20:48 05:22 10:24 WBC 31.0 H RBC 2.91 L Hgb 8.1 L Hct 24.7 L MCH RDW 16.8 H Plt Count 502 H Seg Neuts % (Manual) Lymphocytes % (Manual) Seg Neutrophils # Man Monocytes # (Manual) PT INR APTT D-Dimer POC ABG pO2 ABG Hemoglobin ABG Oxyhemoglobin ABG Sodium ABG Potassium ABG Glucose Sodium 132 L Potassium Chloride Carbon Dioxide BUN 35 H Creatinine 1.6 H Glucose 195 H POC Glucose 217 H Hemoglobin A1c Calcium 7.6 L Iron TIBC Ferritin AST Alkaline Phosphatase 198 H C-Reactive Protein Total Protein 6.1 L Albumin 1.9 L Arterial Blood Glucose Arterial Blood Ionized Calcium 03/26/21 03/26/21 03/26/21 16:15 18:36 18:40 WBC RBC Hgb Hct MCH RDW Plt Count Seg Neuts % (Manual) Lymphocytes % (Manual) Seg Neutrophils # Man Monocytes # (Manual) PT INR APTT D-Dimer 3944.31 H POC ABG pO2 62.7 L ABG Hemoglobin 7.7 L ABG Oxyhemoglobin 90.5 L ABG Sodium 124.6 L ABG Potassium 4.8 H ABG Glucose 275 H Sodium Potassium Chloride Carbon Dioxide BUN Creatinine Glucose POC Glucose 187 H Hemoglobin A1c Calcium Iron TIBC Ferritin AST Alkaline Phosphatase C-Reactive Protein Total Protein Albumin Arterial Blood Glucose 275 H Arterial Blood Ionized Calcium 4.4 L 03/26/21 03/27/21 03/27/21 21:03 04:44 04:44 WBC RBC Hgb Hct MCH RDW Plt Count Seg Neuts % (Manual) Lymphocytes % (Manual) Seg Neutrophils # Man Monocytes # (Manual) PT INR APTT D-Dimer POC ABG pO2 ABG Hemoglobin ABG Oxyhemoglobin ABG Sodium ABG Potassium ABG Glucose Sodium Potassium Chloride Carbon Dioxide BUN Creatinine Glucose POC Glucose 246 H Hemoglobin A1c Calcium Iron 18 L TIBC 107 L Ferritin 1071.0 H AST Alkaline Phosphatase C-Reactive Protein Total Protein Albumin Arterial Blood Glucose Arterial Blood Ionized Calcium 03/27/21 03/27/21 03/27/21 04:44 04:44 07:50 WBC RBC Hgb Hct MCH RDW Plt Count Seg Neuts % (Manual) Lymphocytes % (Manual) Seg Neutrophils # Man Monocytes # (Manual) PT INR APTT D-Dimer POC ABG pO2 ABG Hemoglobin ABG Oxyhemoglobin ABG Sodium ABG Potassium ABG Glucose Sodium 129 L Potassium 5.6 H Chloride 97.4 L Carbon Dioxide 18 L BUN 37 H Creatinine 1.9 H Glucose 260 H POC Glucose 281 H Hemoglobin A1c 9.9 H Calcium 7.9 L Iron TIBC Ferritin AST Alkaline Phosphatase C-Reactive Protein Total Protein Albumin Arterial Blood Glucose Arterial Blood Ionized Calcium 03/27/21 03/27/21 03/27/21 13:17 15:36 17:38 WBC 33.0 H RBC 2.74 L Hgb 7.9 L Hct 23.3 L MCH RDW 17.1 H Plt Count 526 H Seg Neuts % (Manual) Lymphocytes % (Manual) Seg Neutrophils # Man Monocytes # (Manual) PT INR APTT D-Dimer POC ABG pO2 ABG Hemoglobin ABG Oxyhemoglobin ABG Sodium ABG Potassium ABG Glucose Sodium Potassium Chloride Carbon Dioxide BUN Creatinine Glucose POC Glucose 322 H 313 H Hemoglobin A1c Calcium Iron TIBC Ferritin AST Alkaline Phosphatase C-Reactive Protein Total Protein Albumin Arterial Blood Glucose Arterial Blood Ionized Calcium 03/27/21 03/27/21 03/27/21 17:38 17:38 21:33 WBC RBC Hgb Hct MCH RDW Plt Count Seg Neuts % (Manual) Lymphocytes % (Manual) Seg Neutrophils # Man Monocytes # (Manual) PT INR APTT D-Dimer POC ABG pO2 ABG Hemoglobin ABG Oxyhemoglobin ABG Sodium ABG Potassium ABG Glucose Sodium 128 L Potassium 5.1 H Chloride 97.3 L Carbon Dioxide 15 L BUN 48 H Creatinine 2.1 H Glucose 316 H POC Glucose 335 H Hemoglobin A1c Calcium 8.0 L Iron TIBC Ferritin AST Alkaline Phosphatase C-Reactive Protein 20.60 H Total Protein Albumin Arterial Blood Glucose Arterial Blood Ionized Calcium 03/28/21 03/28/21 03/28/21 04:27 04:27 08:46 WBC 28.5 H RBC 2.84 L Hgb 7.4 L Hct 23.9 L MCH 26 L RDW 17.0 H Plt Count 573 H Seg Neuts % (Manual) 92.0 H Lymphocytes % (Manual) 6.0 L Seg Neutrophils # Man 26.2 H Monocytes # (Manual) PT INR APTT D-Dimer POC ABG pO2 ABG Hemoglobin ABG Oxyhemoglobin ABG Sodium ABG Potassium ABG Glucose Sodium 134 L Potassium Chloride Carbon Dioxide 19 L BUN 50 H Creatinine 1.9 H Glucose 287 H POC Glucose 337 H Hemoglobin A1c Calcium 7.8 L Iron TIBC Ferritin AST Alkaline Phosphatase C-Reactive Protein Total Protein Albumin Arterial Blood Glucose Arterial Blood Ionized Calcium 03/28/21 03/28/21 03/29/21 11:28 16:09 00:12 WBC RBC Hgb Hct MCH RDW Plt Count Seg Neuts % (Manual) Lymphocytes % (Manual) Seg Neutrophils # Man Monocytes # (Manual) PT INR APTT D-Dimer POC ABG pO2 ABG Hemoglobin ABG Oxyhemoglobin ABG Sodium ABG Potassium ABG Glucose Sodium Potassium Chloride Carbon Dioxide BUN Creatinine Glucose POC Glucose 367 H 348 H 372 H Hemoglobin A1c Calcium Iron TIBC Ferritin AST Alkaline Phosphatase C-Reactive Protein Total Protein Albumin Arterial Blood Glucose Arterial Blood Ionized Calcium 03/29/21 03/29/21 03/29/21 05:09 07:58 11:16 WBC RBC Hgb Hct MCH RDW Plt Count Seg Neuts % (Manual) Lymphocytes % (Manual) Seg Neutrophils # Man Monocytes # (Manual) PT INR APTT D-Dimer POC ABG pO2 ABG Hemoglobin ABG Oxyhemoglobin ABG Sodium ABG Potassium ABG Glucose Sodium 135 L Potassium Chloride Carbon Dioxide 20 L BUN 49 H Creatinine 1.7 H Glucose 316 H POC Glucose 294 H 249 H Hemoglobin A1c Calcium 7.8 L Iron TIBC Ferritin AST Alkaline Phosphatase C-Reactive Protein Total Protein Albumin Arterial Blood Glucose Arterial Blood Ionized Calcium Allied health notes reviewed: nursing
[2021-03-29] MEDS: HYDROmorphone 2 MG/1 ML INJ IV PRN (17:34)
[2021-03-30] MEDS: HYDROmorphone 2 MG/1 ML INJ IV PRN ×3 (02:12→16:12)
[2021-03-30] MEDS: methylPREDNISolone Sod Succinate 40 MG/1 ML INJ IV SCH (02:12)
[2021-03-30] MEDS: SODIUM CHLORIDE 0.9% 1000 ML 1,000 ML IV SCH (05:39)
[2021-03-30] MEDS: PIPERACIL-TAZO 2.25 GM/50 ML 2.25 GM/50 ML BAG IV SCH ×4 (05:40→23:15)
[2021-03-30 06:20] LABS: Hematocrit 28.1 % (30.3-42.9); Hemoglobin 9.1 gm/dl (10.1-14.3); Mean Corpuscular HGB Conc 32 % (30-34); Mean Corpuscular Volume 86 fl (79-97); Platelet Count 654 K/mm3 (140-440); Red Blood Count 3.29 M/mm3 (3.65-5.03); Red Cell Distribution Width 17.4 % (13.2-15.2)
[2021-03-30 07:10] LABS: Calcium 8.2 mg/dL (8.4-10.2)
[2021-03-30 07:56] LABS: Total Cells Counted 100
[2021-03-30 07:57] LABS: Anisocytosis 1+; Hypochromasia Few; Platelet Estimate Consistent w Auto
[2021-03-30] MEDS: INSULIN REGULAR, HUMAN 100 UNITS/1 ML SUB-Q SCH ×4 (08:16→22:53)
[2021-03-30] MEDS: amLODIPine 10 MG TAB PO SCH (08:17)
--- NOTE | 2021-03-30 10:03 | Progress Note ---
Assessment and Plan 1. Acute kidney injury: Vasomotor GREGOR superimposed on CKD in the setting of volume depletion / hypotension. Patient is also suspected of Myeloproliferative disorder. CT abdomen negative for hydro. Urine studies ordered. Continue IV fluids. Monitor renal function. Creatinine level is improving. Avoid nephrotoxic agents. Meds dosage based on GFR. 2. FEN: Hyperkalemia, improved, monitor. Metabolic acidosis, monitor. Hyponatremia, improved, monitor. Monitor volume status and lytes. 3. Status post fall: CT head without any acute process. Monitor. 4. Severe pelvic pain: Likely 2/[address] abdomen pelvis x-ray soft tissue injury without any sign of fracture. Pain management. 5. Leukocytosis: Followed by ID. Heme-onc on board for possible myeloproliferative disorder. 6. Hypotensive episode: Resolved following IV fluid bolus. 7. Normocytic anemia with thrombocytosis: Monitor. Heme-onc on board. 8. Encephalopathy: Metabolic. Improved / improving. Subjective: Patient was seen and examined at the bedside. Objective: General appearance: well-developed, appears stated age, not in distress HEENT: ATNC Neck: trachea midline Respiratory: diminished breath sounds Heart: S1S2, regular, no murmur Abdomen: soft, normoactive bowel sounds, not tender Integumentary: no obvious rash Ext: no edema Neurologic: alert, able to move extremities Subjective Date of service: 03/30/21 Principal diagnosis: Ac. hypoxemic resp failure; S/P fall; Leukocytosis; DM II Objective - Vital Signs Vital signs: Vital Signs - 12hr 03/29/21 03/30/21 03/30/21 23:18 03:45 07:30 Temperature 98.0 F 98.3 F 97.3 F L Pulse Rate 70 68 78 Respiratory 18 18 18 Rate Blood Pressure 162/66 128/55 Blood Pressure 178/135 [Left] O2 Sat by Pulse 96 96 96 Oximetry 03/30/21 08:17 Temperature Pulse Rate 75 Respiratory Rate Blood Pressure 161/66 Blood Pressure [Left] O2 Sat by Pulse Oximetry - Lab 03/30/21 05:38 03/30/21 05:38 Most recent lab results ABG pH 7.364 (7.320-7.450) 03/26/21 18:40 ABG O2 Saturation 91.4 (0-100) 03/26/21 18:40 Calcium 8.2 mg/dL (8.4-10.2) L 03/30/21 05:38 Medications & Allergies - Medications Allergies/Adverse Reactions: Allergies No Known Allergies Allergy (Verified 03/24/21 21:46) Home Medications: Home Medications Medication Instructions Recorded Confirmed Last Taken Type Amlodipine Besylate [Norvasc] 10 mg PO DAILY 03/25/21 03/25/21 03/24/21 10:00 History AtorvaSTATin [Lipitor] 40 mg PO QHS 03/25/21 03/25/21 03/24/21 21:00 History Diclofenac 1% [Diclofenac 1% 100 gm TP QID 03/25/21 03/25/21 03/24/21 21:00 History topical gel] Gabapentin [Neurontin] 100 mg PO DAILY 03/25/21 03/25/21 03/24/21 21:00 History Nitrofurantoin Macrocrystal 100 mg PO BID 03/25/21 03/25/21 03/24/21 21:00 History [Nitrofurantoin] hydroCHLOROthiazide [HCTZ] 25 mg PO DAILY 03/25/21 03/25/21 03/24/21 10:00 History lisinopriL [Zestril TAB] 40 mg PO QDAY 03/25/21 03/25/21 03/24/21 10:00 History metFORMIN [Glucophage] 500 mg PO BID 03/25/21 03/25/21 03/24/21 17:00 History Insulin NPH/Regular [NovoLIN 70/30] 10 units SQ BID 03/26/21 03/26/21 Unknown History Active Medications: Generic Name Dose Route Start Last Admin Trade Name Zoltanq PRN Reason Stop Dose Admin Acetaminophen 650 mg 03/25/21 10:30 03/25/21 10:56 Acetaminophen 325 Mg Tab PO 650 mg Q4H PRN Administration Pain MILD(1-3)/Fever >100.5/GUAJARDO Hydrocodone Bitart/Acetaminophen 2 each 03/25/21 10:30 03/26/21 14:13 Hydrocodone/Acetaminophen 5-325 Mg Tab PO 2 each Q6H PRN Administration Pain, Moderate (4-6) Amlodipine Besylate 10 mg 03/30/21 08:30 03/30/21 08:17 Amlodipine 10 Mg Tab PO 10 mg QDAY PHONG Administration Atorvastatin Calcium 40 mg 03/25/21 22:00 03/29/21 21:57 Atorvastatin 40 Mg Tab PO 40 mg QHS PHONG Administration Enoxaparin Sodium 30 mg 03/27/21 22:00 03/29/21 21:56 Enoxaparin 30 Mg/0.3 Ml Inj SUB-Q 30 mg QHS PHONG Administration Hydralazine HCl 5 mg 03/25/21 10:30 03/29/21 17:33 Hydralazine 20 Mg/1 Ml Inj IV 5 mg Q30MIN PRN Administration Hypertension Hydromorphone HCl 1 mg 03/26/21 15:00 Hydromorphone 1 Mg/1 Ml Inj IV Q2H PRN Pain , Severe (7-10) Hydromorphone HCl 2 mg 03/28/21 11:49 03/30/21 08:16 Hydromorphone 2 Mg/1 Ml Inj IV 2 mg Q4H PRN Administration Pain , Severe (7-10) Sodium Chloride 1,000 mls @ 100 mls/hr 03/25/21 11:00 03/30/21 05:39 Nacl 0.9% 1000 Ml IV 100 mls/hr DIRECT PHONG Administration Piperacillin Sod/Tazobactam Sod 2.25 gm in 50 mls @ 100 mls/hr 03/26/21 14:00 03/30/21 05:40 Zosyn/Ns 2.25 Gm/50ml IV 100 mls/hr Q6HR PHONG Administration Insulin Human Isoph/Insulin Regular 22 unit 03/29/21 10:00 03/29/21 21:56 Insulin Nph/Regular 70/30 Inj SUB-Q Not Given BID [facility] Insulin Human Regular 0 units 03/26/21 22:00 03/30/21 08:16 Insulin Regular, Human 100 Units/1 Ml SUB-Q 2 units ACHS PHONG Administration Protocol Methylprednisolone Sodium Succinate 40 mg 03/29/21 02:00 03/30/21 02:12 Methylprednisolone Sod Succinate 40 Mg/1 Ml Inj IV 40 mg Q24H PHONG Administration Ondansetron HCl 4 mg 03/25/21 10:30 03/25/21 18:18 Ondansetron 4 Mg/2 Ml Inj IV 4 mg Q8H PRN Administration Nausea And Vomiting Oxycodone HCl 20 mg 03/28/21 13:00 03/29/21 21:57 Oxycodone Er 20 Mg Tab PO 20 mg Q12HR PHONG Administration Sodium Bicarbonate 650 mg 03/27/21 10:30 03/29/21 21:57 Sodium Bicarbonate 650 Mg Tab PO 650 mg BID PHONG Administration Sodium Polystyrene Sulfonate 15 gm 03/27/21 10:00 Sodium Polystyrene 15 Gm/60 Ml Oral Liqd PO Q6H PRN Hyperkalemia
--- NOTE | 2021-03-30 11:05 | Progress Note ---
Assessment and Plan Status post fall -CT head without any acute process -Patient has no focal deficit -Continue to monitor clinically and PT eval when clinically more stable Severe pelvic pain -Likely traumatic following fall -CT abdomen pelvis x-ray soft tissue injury without any sign of fracture -Pain management as needed -pelvic and lumbar spine MRI: degenerative changes,fluid collection seen at right SI joint and torn tendons, Ortho recommend no surgical intervention needed. IR consulted and recommended BM biopsy Leukocytosis with WBC > 31K -patient on empiric antibiotic -ID on board and neg culture -Heme-onc on board for possible myeloproliferative disorder - started on steroid -Ordered bone scan showed no osseous malignancy - planned for BM biopsy GREGOR, vasomotor nephropathy -Continue gentle IV fluid hydration, BMP daily -Consulted nephrology, avoid nephrotoxins DM type 2 -Consistent carb diet placed on SSI, ordered A1c and nephrology paged Hyponatrenia, likely due to dehydration, continue IV fluid Hypotensive episode, resolved following IV fluid boluses Normocytic anemia with thrombocytosis -Monitor H&H follow clinically -Heme-onc on board Hypertension, initiate Norvasc, monitor BP, IV hydralazine as needed DVT prophylaxis with Lovenox Daily clinical course: 03/25/21: Following admission patient noted to be hypotensive, given IV fluid boluses and continued fluid with maintenance rate. Plan to transfer to ICU to start on pressor if BP does not improve with fluid challenge. 03/26/21: Patient continues to complains of pelvic pain. Noted to have CVA tenderness over the right ischeal tuberosity. Will Obtain pelvic MRI with contrast and lumbar spine MRI evaluation for possible epidural abscess, discitis, rectal ischial abscess, continue empiric antibiotics for now, ID following. Heme-onc consulted possible underlying myeloproliferative disorder we will follow pending labs- 03/27: Cr trending up - consult nephrology, MRI pelvis pending, ordered bone scan per heam recommendation. started on steroid. follow BMP, trend Cr 03/28: No fracture seen on xray/mri scan but fluid collection seen at right SI joint and torn tendons, Ortho recommend CT guided aspiration right SI joint/pelvic areas - IR consulted. Cr slightly improved, cont to follow BMP. cont steroid, follow CBC 03/29: Renal function remains stable, patient stated that she is slightly feeling better today. Discussed with IR and recommending bone marrow biopsy from right ischium -order placed. Patient remains on steroid pulse dose for possible myeloproliferative disorder. Continue to follow clinically. Will order for PT eval following bone marrow biopsy. 03/30: waiting on BM biopsy, serum creatinine trending down, continue gentle IV fluid hydration. Will assess further with PT eval following removal of the biopsy. Subjective Date of service: 03/30/21 Principal diagnosis: Ac. hypoxemic resp failure; S/P fall; Leukocytosis; DM II Interval history: Patient seen and examined. Medical records and medication list reviewed. No acute event overnight noted by the RN. Patient states pelvic pain much improved Plan for bone biopsy today Discussed plan of care at bedside with patient. Objective - Exam Narrative Exam: GENERAL: well-developed and well-nourished elderly female appears in moderate distress HEENT: Normocephalic. Atraumatic. No conjunctival congestion or icterus. Patient has moist mucous membranes. NECK: Supple. Trachea midline. CHEST/LUNGS: Clear to auscultated bilaterally, breathing nonlabored. No wheezes crackles or rhonchi. HEART/CARDIOVASCULAR: Regular in rate and rhythm. S1 and S2 positive. ABDOMEN: Abdomen is soft, nontender. Patient has normal bowel sounds. SKIN: There is no rash. Warm and dry. NEURO: No focal motor deficit. Follows command. MUSCULOSKELETAL: No joint effusion EXTRIMITY: No edema, no cyanosis or clubbing. PSYCH: Cooperative. - Constitutional Vitals: Vital Signs - 12hr 03/29/21 03/30/21 03/30/21 23:18 03:45 07:30 Temperature 98.0 F 98.3 F 97.3 F L Pulse Rate 70 68 78 Respiratory 18 18 18 Rate Blood Pressure 162/66 128/55 Blood Pressure 178/135 [Left] O2 Sat by Pulse 96 96 96 Oximetry 03/30/21 08:17 Temperature Pulse Rate 75 Respiratory Rate Blood Pressure 161/66 Blood Pressure [Left] O2 Sat by Pulse Oximetry - Labs CBC & Chem 7: 03/30/21 05:38 03/30/21 05:38 Labs: Abnormal lab results 03/29/21 03/29/21 03/30/21 Range/Units 11:16 15:54 05:38 WBC (4.5-11.0) K/mm3 RBC (3.65-5.03) M/mm3 Hgb (10.1-14.3) gm/dl Hct (30.3-42.9) % RDW (13.2-15.2) % Plt Count (140-440) K/mm3 Seg Neuts % (Manual) (40.0-70.0) % Lymphocytes % (Manual) (13.4-35.0) % Seg Neutrophils # Man (1.8-7.7) K/mm3 Carbon Dioxide 21 L (22-30) mmol/L BUN 41 H (7-17) mg/dL Creatinine 1.5 H (0.6-1.2) mg/dL Glucose 128 H (65-100) mg/dL POC Glucose 249 H 150 H (70-105) mg/dL Calcium 8.2 L (8.4-10.2) mg/dL 03/30/21 Range/Units 05:38 WBC 22.6 H (4.5-11.0) K/mm3 RBC 3.29 L (3.65-5.03) M/mm3 Hgb 9.1 L (10.1-14.3) gm/dl Hct 28.1 L (30.3-42.9) % RDW 17.4 H (13.2-15.2) % Plt Count 654 H (140-440) K/mm3 Seg Neuts % (Manual) 92.0 H (40.0-70.0) % Lymphocytes % (Manual) 7.0 L (13.4-35.0) % Seg Neutrophils # Man 20.8 H (1.8-7.7) K/mm3 Carbon Dioxide (22-30) mmol/L BUN (7-17) mg/dL Creatinine (0.6-1.2) mg/dL Glucose (65-100) mg/dL POC Glucose (70-105) mg/dL Calcium (8.4-10.2) mg/dL
[2021-03-30] MEDS: INSULIN NPH/REGULAR 70/30 INJ SUB-Q SCH ×2 (11:22→22:52)
[2021-03-30] MEDS: SODIUM BICARBONATE 650 MG TAB PO SCH ×2 (11:25→22:42)
--- NOTE | 2021-03-30 11:46 | Progress Note ---
Assessment and Plan Cultures: Blood culture 03/25/2021 no growth today MRSA PCR negative Assessment: 75-year-old female with history of hypertension, diabetes, admitted on 03/24/2021 secondary to a fall in the bathroom at home pain for several months: #Leukocytosis and thrombocytosis: better 34K--->28K. Of unclear etiology. Reactive secondary to Pelvic trauma/infection?. Patient complaining of pelvic pain for several months. CT abdomen shows fluid tracks along the right medial acetabulum and thickening of the sacrospinosus ligament. Abdominal CT otherwise unremarkable. Patient denies any weight loss. Patient is not the best historian. Elevated procalcitonin in the setting of acute kidney injury. #Bilateral ischial pain R>L: On exam severe tenderness noted mild induration on right ischeal area ? Abscess ? Hematoma ?osteo. Patient reports pain has been there for several weeks and radiates to the right foot. CRP 26--->20. Pelvic MRI with ischial osteomyeltiis?, near completion thorough for the right obturator intrnist muscle with hematoma in right pitifomis. Also right ischiofemoral impingement with complete tear quadratus femoralitis. Lumbar MRI with severe DJD. #Anemia #Elevated LFTs: Mild, AST 46. Unclear etiology, CT without cholecystitis. #GREGOR: Creatinine up Recommendations: -Agree with bone biopsy, pending -Repeat CRP tomorrow. -Continue Zosyn IV for now -Heme-onc on board Trenton Alegre MD [facility] ([facility] O: [phone] F: [phone] Subjective Date of service: 03/30/21 Principal diagnosis: Ac. hypoxemic resp failure; S/P fall; Leukocytosis; DM II Interval history: Afebrile, improving white count. Objective - Exam Narrative Exam: General appearance: Alert in no acute distress Eyes: anicteric sclerae, moist conjunctivae; no lid-lag HENT: Normocephalic, Atraumatic; normal external ears, nares open, oropharynx limited Lungs: CTA CV: RRR no murmur Abdomen: Soft, non-tender; no masses or hepatosplenomegaly Extremities: no edema, no cyanosis, bilateral ischial area tenderness Skin: Ischial tenderness improved Psych: Not agitated Neuro: Not agitated - Constitutional Vitals: Vital Signs Temp Pulse Resp BP Pulse Ox 97.3 F L 77 18 161/66 96 03/30/21 07:30 03/30/21 10:00 03/30/21 07:30 03/30/21 08:17 03/30/21 07:30 Temperature -Last 24 Hours Temperature 97.3 F Temperature 98.3 F Temperature 98.0 F Temperature 97.3 F - Labs CBC & Chem 7: 03/30/21 05:38 03/30/21 05:38 Labs: Abnormal lab results 03/29/21 03/29/21 03/30/21 Range/Units 11:16 15:54 05:38 WBC (4.5-11.0) K/mm3 RBC (3.65-5.03) M/mm3 Hgb (10.1-14.3) gm/dl Hct (30.3-42.9) % RDW (13.2-15.2) % Plt Count (140-440) K/mm3 Seg Neuts % (Manual) (40.0-70.0) % Lymphocytes % (Manual) (13.4-35.0) % Seg Neutrophils # Man (1.8-7.7) K/mm3 Carbon Dioxide 21 L (22-30) mmol/L BUN 41 H (7-17) mg/dL Creatinine 1.5 H (0.6-1.2) mg/dL Glucose 128 H (65-100) mg/dL POC Glucose 249 H 150 H (70-105) mg/dL Calcium 8.2 L (8.4-10.2) mg/dL 03/30/21 03/30/21 03/30/21 Range/Units 05:38 07:44 10:52 WBC 22.6 H (4.5-11.0) K/mm3 RBC 3.29 L (3.65-5.03) M/mm3 Hgb 9.1 L (10.1-14.3) gm/dl Hct 28.1 L (30.3-42.9) % RDW 17.4 H (13.2-15.2) % Plt Count 654 H (140-440) K/mm3 Seg Neuts % (Manual) 92.0 H (40.0-70.0) % Lymphocytes % (Manual) 7.0 L (13.4-35.0) % Seg Neutrophils # Man 20.8 H (1.8-7.7) K/mm3 Carbon Dioxide (22-30) mmol/L BUN (7-17) mg/dL Creatinine (0.6-1.2) mg/dL Glucose (65-100) mg/dL POC Glucose 156 H 177 H (70-105) mg/dL Calcium (8.4-10.2) mg/dL
[2021-03-30] MEDS ORDERED: MIDAZOLAM 5 MG/5 ML INJ MDV IV SCH (11:54)
[2021-03-30] MEDS ORDERED: fentaNYL 100 MCG/2 ML INJ ONE (12:02)
[2021-03-30] MEDS ORDERED: SODIUM CHLORIDE 0.9% 500 ML 500 ML ONE (12:05)
[2021-03-30] MEDS ORDERED: fentaNYL 100 MCG/2 ML INJ IV ONE (12:54)
[2021-03-30] MEDS: oxyCODONE ER 20 MG TAB PO SCH ×2 (12:55→22:42)
[2021-03-30] MEDS ORDERED: LIDOCAINE 1%/EPINEPHRINE 1:100,000 VIAL (20 ML) INFILTRATI ONE (13:32)
--- NOTE | 2021-03-30 13:43 | Progress Note ---
Assessment and Plan pelvic pain - no fracture seen on xray/mri scan but fluid collection seen at right SI joint and torn tendons... recommend CT guided aspiration right SI joint/pelvic areas Subjective Date of service: 03/30/21 Principal diagnosis: Ac. hypoxemic resp failure; S/P fall; Leukocytosis; DM II Interval history: patient in CT for BM bx Objective Vital signs: Vital Signs - 12hr 03/30/21 03/30/21 03/30/21 03:45 07:30 08:17 Temperature 98.3 F 97.3 F L Pulse Rate 68 78 75 Respiratory 18 18 Rate Blood Pressure 128/55 161/66 Blood Pressure 178/135 [Left] O2 Sat by Pulse 96 96 Oximetry 03/30/21 03/30/21 10:00 10:51 Temperature 97.2 F L Pulse Rate 77 73 Respiratory 18 Rate Blood Pressure 107/89 Blood Pressure [Left] O2 Sat by Pulse 100 Oximetry - Labs CBC & BMP: 03/30/21 05:38 03/30/21 05:38 Labs: Abnormal lab results 03/29/21 03/30/21 03/30/21 Range/Units 15:54 05:38 05:38 WBC 22.6 H (4.5-11.0) K/mm3 RBC 3.29 L (3.65-5.03) M/mm3 Hgb 9.1 L (10.1-14.3) gm/dl Hct 28.1 L (30.3-42.9) % RDW 17.4 H (13.2-15.2) % Plt Count 654 H (140-440) K/mm3 Seg Neuts % (Manual) 92.0 H (40.0-70.0) % Lymphocytes % (Manual) 7.0 L (13.4-35.0) % Seg Neutrophils # Man 20.8 H (1.8-7.7) K/mm3 Carbon Dioxide 21 L (22-30) mmol/L BUN 41 H (7-17) mg/dL Creatinine 1.5 H (0.6-1.2) mg/dL Glucose 128 H (65-100) mg/dL POC Glucose 150 H (70-105) mg/dL Calcium 8.2 L (8.4-10.2) mg/dL 05/17/21 05/17/21 Range/Units 07:44 10:52 WBC (4.5-11.0) K/mm3 RBC (3.65-5.03) M/mm3 Hgb (10.1-14.3) gm/dl Hct (30.3-42.9) % RDW (13.2-15.2) % Plt Count (140-440) K/mm3 Seg Neuts % (Manual) (40.0-70.0) % Lymphocytes % (Manual) (13.4-35.0) % Seg Neutrophils # Man (1.8-7.7) K/mm3 Carbon Dioxide (22-30) mmol/L BUN (7-17) mg/dL Creatinine (0.6-1.2) mg/dL Glucose (65-100) mg/dL POC Glucose 156 H 177 H (70-105) mg/dL Calcium (8.4-10.2) mg/dL
--- NOTE | 2021-03-30 14:44 | Post Operative Note ---
Date of procedure: 03/30/21 Pre-op diagnosis: sacral lesion, abnormal bone marrow Post-op diagnosis: same Procedure: CT guided right iliac bone bone marrow aspiration CT guided right iliac bone biopsy Anesthesia: local (w/ conscious sedation) Surgeon: CAM CAPELLAN Estimated blood loss: minimal Pathology: list (Cx, & pathology) Specimen disposition: to lab Condition: stable Disposition: floor
--- NOTE | 2021-03-30 15:55 | Operative Report ---
Operative Report Operative Report: EXAM: CT-guided right iliac bone marrow aspiration CT-guided right iliac bone biopsy, 11-gauge on control core biopsy DATE: 03/30/2021 BILINGUAL RECEPTIONIST: CAM CAPELLAN MD INDICATION: Abnormal MRI findings concerning for possible underlying malignancy or infection, abnormal cell counts concerning for underlying malignancy MEDICATIONS: Conscious sedation was performed. Please see nursing report for full details. DEVICES: 11-gauge on control system CONTRAST: None PROCEDURE: The risks, benefits, and alternatives discussed with the patient's family; written informed consent was obtained. The patient was brought to the CT scanner and placed in a prone position. [facility] Representative imaging was obtained of the patient's pelvis. Patient was then prepped and draped in a sterile fashion after the site was marked. Under intermittent CT guidance, a 25-gauge needle was used to infiltrate the area with lidocaine with epinephrine and then used to indicate where to place the bone marrow biopsy device. 11-gauge on control device was then positioned in the right iliac crest with intermittent CT guidance and was placed using firm pressure and a small mallet. The inner stylette was removed. Bone marrow was then aspirated and provided to pathology. Device was attached to a sterile drill and used to obtain a iliac bone sample 2 to 3 cm in size. Right iliac bone was then divided and provided for pathology and provided for microbiology. Pressure was then held until hemostasis was achieved. Pressure dressing ap plied. Final imaging was performed demonstrating no complications. Patient was then transferred back to her room. FINDINGS: Successful right iliac bone biopsy and bone marrow aspiration. IMPRESSION: Successful right iliac bone biopsy and bone marrow aspiration.
--- NOTE | 2021-03-30 18:59 | Progress Note ---
Assessment and Plan Patient is 75-year-old female with history of cervical cancer which is now in remission, hypertension and diabetes mellitus type 2 brought to the emergency room via EMS from home for evaluation after a fall that happened in the bathroom. Patient tripped fell and hit her head on the edge of the toilet bowl. Patient denied any loss of consciousness. Patient accompanied by her son who is translating for us. He stated that patient had another fall before that and she didnot reveal that to anyone until the next morning. Since the fall she is complaining of bilateral hip pain right shoulder pain and headache. Patient denied any symptoms prior to the fall. In the ER, EKG showed sinus rhythm with no ST elevation. CT brain, CT cervical spine is unremarkable. Pelvic x-ray is negative for acute finding. Labs reviewed and showed significantly elevated white blood cells of 34,000. Chest x-ray is unremarkable. Urine is negative. CT abdomen and pelvis with IV contrast showed no acute abnormalities. Patient initially given Zosyn empirically. Past medical History: h/o hypertension, diabetes mellitus, history of cervical c ancer now in remission Past surgical History: s/p tubal ligation, possible hysterectomy Social History: Lives with family, denies any smoking, drinking and elicit drug abuse. Family History: Significant for hypertension and heart disease Patient awake and not able to give much history. History obtained through her granddaughter. No complaint of chest pain, SOB, or cough. Patient has no history of smoking, alcohol, or drug abuse. Patient afebrile with leukocytosis. Patient on room air with O2 saturation 100%. Patient is on Medications S/C lovanox, methylprednisone, and zosyn. Chest x-ray done on 03/24/21 showed No acute abnormality. ABG on room air. ABG pH 7.364 (7.320-7.450) 03/26/21 18:40 POC ABG pCO2 33.3 mmHg (32.0-48.0) 03/26/21 18:40 POC ABG pO2 62.7 mmHg (83-108) L 03/26/21 18:40 POC ABG HCO3 18.6 03/26/21 18:40 ABG O2 Saturation 91.4 (0-100) 03/26/21 18:40 - Patient Problems (1) Hypoxemia Current Visit: Yes Status: Acute Plan to address problem: Patient's PO2 is 62 on room air. Recommend 2L O2 on nasal cannula. (2) Leukocytosis, unspecified Current Visit: Yes Status: Acute Plan to address problem: Patient is on Zosyn. Mangement as per Infectious diseases. Subjective Date of service: 03/30/21 Principal diagnosis: Ac. hypoxemic resp failure; S/P fall; Leukocytosis; DM II Interval history: Patient is 75-year-old female with history of cervical cancer which is now in remission, hypertension and diabetes mellitus type 2 brought to the emergency room via EMS from home for evaluation after a fall that happened in the bathroom. Patient tripped fell and hit her head on the edge of the toilet bowl. Patient denied any loss of consciousness. Patient accompanied by her son who is translating for us. He stated that patient had another fall before that and she didnot reveal that to anyone until the next morning. Since the fall she is complaining of bilateral hip pain right shoulder pain and headache. Patient denied any symptoms prior to the fall. In the ER, EKG showed sinus rhythm with no ST elevation. CT brain, CT cervical spine is unremarkable. Pelvic x-ray is negative for acute finding. Labs reviewed and showed significantly elevated white blood cells of 34,000. Chest x-ray is unremarkable. Urine is negative. CT abdomen and pelvis with IV contrast showed no acute abnormalities. Patient initially given Zosyn empirically. Past medical History: h/o hypertension, diabetes mellitus, history of cervical cancer now in remission Past surgical History: s/p tubal ligation, possible hysterectomy Social History: Lives with family, denies any smoking, drinking and elicit drug abuse. Family History: Significant for hypertension and heart disease Patient awake and not able to give much history. History obtained through her granddaughter. No complaint of chest pain, SOB, or cough. Patient has no history of smoking, alcohol, or drug abuse. Patient afebrile with leukocytosis. Patient on room air with O2 saturation 100%. Patient is on Medications S/C lovanox, methylprednisone, and zosyn. Chest x-ray done on 03/24/21 showed No acute abnormality. ABG on room air. ABG pH 7.364 (7.320-7.450) 03/26/21 18:40 POC ABG pCO2 33.3 mmHg (32.0-48.0) 03/26/21 18:40 POC ABG pO2 62.7 mmHg (83-108) L 03/26/21 18:40 POC ABG HCO3 18.6 03/26/21 18:40 ABG O2 Saturation 91.4 (0-100) 03/26/21 18:40 Objective Vital Signs - 12hr 03/30/21 03/30/21 03/30/21 03:45 07:30 08:17 Temperature 98.3 F 97.3 F L Pulse Rate 68 78 75 Respiratory 18 18 Rate Blood Pressure 128/55 161/66 Blood Pressure 178/135 [Left] O2 Sat by Pulse 96 96 Oximetry 03/30/21 03/30/21 10:00 10:51 Temperature 97.2 F L Pulse Rate 77 73 Respiratory 18 Rate Blood Pressure 107/89 Blood Pressure [Left] O2 Sat by Pulse 100 Oximetry Constitutional: no acute distress, alert, other (elderly female without increased respiratory effort at rest. Weak.) Eyes: non-icteric ENT: oropharynx moist Neck: supple, no lymphadenopathy, no JVD Effort: mildly labored Ascultation: Bilateral: diminished breath sounds, rhonchi (scant) Percussion: Bilateral: not dull Cardiovascular: regular rate and rhythm Gastrointestinal: normoactive bowel sounds, soft, non-tender, non-distended Integumentary: normal Extremities: no cyanosis, pink and warm, pulses normal, no ischemia or petechiae Neurologic: non-focal exam (grossly), pupils equal and round, CN II-XII normal Psychiatric: mood appropriate, affect normal CBC and BMP: 03/30/21 05:38 03/30/21 05:38 ABG, PT/INR, D-dimer: ABG ABG pH 7.364 (7.320-7.450) 03/26/21 18:40 POC ABG pCO2 33.3 mmHg (32.0-48.0) 03/26/21 18:40 POC ABG pO2 62.7 mmHg (83-108) L 03/26/21 18:40 POC ABG HCO3 18.6 03/26/21 18:40 ABG O2 Saturation 91.4 (0-100) 03/26/21 18:40 PT/INR, D-dimer PT 15.0 Sec. (12.2-14.9) H 03/24/21 21:46 INR 1.20 (0.87-1.13) H 03/24/21 21:46 D-Dimer 3944.31 ng/mlDDU (0-234) H 03/26/21 18:36 Abnormal lab findings: Abnormal Labs 03/24/21 03/24/21 03/24/21 21:46 21:46 21:46 WBC 31.4 H RBC 2.80 L Hgb 7.8 L Hct 23.6 L MCH RDW 16.1 H Plt Count 548 H Seg Neuts % (Manual) 90.0 H Lymphocytes % (Manual) 4.0 L Seg Neutrophils # Man 28.3 H Monocytes # (Manual) 1.3 H PT 15.0 H INR 1.20 H APTT 38.2 H D-Dimer POC ABG pO2 ABG Hemoglobin ABG Oxyhemoglobin ABG Sodium ABG Potassium ABG Glucose Sodium 126 L Potassium Chloride 90.5 L Carbon Dioxide BUN 34 H Creatinine Glucose 228 H POC Glucose Hemoglobin A1c Calcium 8.1 L Iron TIBC Ferritin AST Alkaline Phosphatase C-Reactive Protein Total Protein Albumin Arterial Blood Glucose Arterial Blood Ionized Calcium 03/24/21 03/25/21 03/25/21 21:46 00:16 08:42 WBC 34.0 H RBC 3.08 L Hgb 8.6 L Hct 25.8 L MCH RDW 16.6 H Plt Count 627 H Seg Neuts % (Manual) 89.0 H Lymphocytes % (Manual) 6.0 L Seg Neutrophils # Man 30.3 H Monocytes # (Manual) 1.4 H PT INR APTT D-Dimer POC ABG pO2 ABG Hemoglobin ABG Oxyhemoglobin ABG Sodium ABG Potassium ABG Glucose Sodium Potassium Chloride Carbon Dioxide BUN Creatinine Glucose POC Glucose 167 H Hemoglobin A1c Calcium Iron TIBC Ferritin AST 46 H Alkaline Phosphatase 235 H C-Reactive Protein Total Protein 5.7 L Albumin 2.4 L Arterial Blood Glucose Arterial Blood Ionized Calcium 03/25/21 03/25/21 03/25/21 11:01 16:28 19:04 WBC RBC Hgb Hct MCH RDW Plt Count Seg Neuts % (Manual) Lymphocytes % (Manual) Seg Neutrophils # Man Monocytes # (Manual) PT INR APTT D-Dimer POC ABG pO2 ABG Hemoglobin ABG Oxyhemoglobin ABG Sodium ABG Potassium ABG Glucose Sodium Potassium Chloride Carbon Dioxide BUN Creatinine Glucose POC Glucose 249 H 227 H Hemoglobin A1c Calcium Iron TIBC Ferritin AST Alkaline Phosphatase C-Reactive Protein 26.30 H Total Protein Albumin Arterial Blood Glucose Arterial Blood Ionized Calcium 03/25/21 03/26/21 03/26/21 20:48 05:22 10:24 WBC 31.0 H RBC 2.91 L Hgb 8.1 L Hct 24.7 L MCH RDW 16.8 H Plt Count 502 H Seg Neuts % (Manual) Lymphocytes % (Manual) Seg Neutrophils # Man Monocytes # (Manual) PT INR APTT D-Dimer POC ABG pO2 ABG Hemoglobin ABG Oxyhemoglobin ABG Sodium ABG Potassium ABG Glucose Sodium 132 L Potassium Chloride Carbon Dioxide BUN 35 H Creatinine 1.6 H Glucose 195 H POC Glucose 217 H Hemoglobin A1c Calcium 7.6 L Iron TIBC Ferritin AST Alkaline Phosphatase 198 H C-Reactive Protein Total Protein 6.1 L Albumin 1.9 L Arterial Blood Glucose Arterial Blood Ionized Calcium 03/26/21 03/26/21 03/26/21 16:15 18:36 18:40 WBC RBC Hgb Hct MCH RDW Plt Count Seg Neuts % (Manual) Lymphocytes % (Manual) Seg Neutrophils # Man Monocytes # (Manual) PT INR APTT D-Dimer 3944.31 H POC ABG pO2 62.7 L ABG Hemoglobin 7.7 L ABG Oxyhemoglobin 90.5 L ABG Sodium 124.6 L ABG Potassium 4.8 H ABG Glucose 275 H Sodium Potassium Chloride Carbon Dioxide BUN Creatinine Glucose POC Glucose 187 H Hemoglobin A1c Calcium Iron TIBC Ferritin AST Alkaline Phosphatase C-Reactive Protein Total Protein Albumin Arterial Blood Glucose 275 H Arterial Blood Ionized Calcium 4.4 L 03/26/21 03/27/21 03/27/21 21:03 04:44 04:44 WBC RBC Hgb Hct MCH RDW Plt Count Seg Neuts % (Manual) Lymphocytes % (Manual) Seg Neutrophils # Man Monocytes # (Manual) PT INR APTT D-Dimer POC ABG pO2 ABG Hemoglobin ABG Oxyhemoglobin ABG Sodium ABG Potassium ABG Glucose Sodium Potassium Chloride Carbon Dioxide BUN Creatinine Glucose POC Glucose 246 H Hemoglobin A1c Calcium Iron 18 L TIBC 107 L Ferritin 1071.0 H AST Alkaline Phosphatase C-Reactive Protein Total Protein Albumin Arterial Blood Glucose Arterial Blood Ionized Calcium 03/27/21 03/27/21 03/27/21 04:44 04:44 07:50 WBC RBC Hgb Hct MCH RDW Plt Count Seg Neuts % (Manual) Lymphocytes % (Manual) Seg Neutrophils # Man Monocytes # (Manual) PT INR APTT D-Dimer POC ABG pO2 ABG Hemoglobin ABG Oxyhemoglobin ABG Sodium ABG Potassium ABG Glucose Sodium 129 L Potassium 5.6 H Chloride 97.4 L Carbon Dioxide 18 L BUN 37 H Creatinine 1.9 H Glucose 260 H POC Glucose 281 H Hemoglobin A1c 9.9 H Calcium 7.9 L Iron TIBC Ferritin AST Alkaline Phosphatase C-Reactive Protein Total Protein Albumin Arterial Blood Glucose Arterial Blood Ionized Calcium 03/27/21 03/27/21 03/27/21 13:17 15:36 17:38 WBC 33.0 H RBC 2.74 L Hgb 7.9 L Hct 23.3 L MCH RDW 17.1 H Plt Count 526 H Seg Neuts % (Manual) Lymphocytes % (Manual) Seg Neutrophils # Man Monocytes # (Manual) PT INR APTT D-Dimer POC ABG pO2 ABG Hemoglobin ABG Oxyhemoglobin ABG Sodium ABG Potassium ABG Glucose Sodium Potassium Chloride Carbon Dioxide BUN Creatinine Glucose POC Glucose 322 H 313 H Hemoglobin A1c Calcium Iron TIBC Ferritin AST Alkaline Phosphatase C-Reactive Protein Total Protein Albumin Arterial Blood Glucose Arterial Blood Ionized Calcium 03/27/21 03/27/21 03/27/21 17:38 17:38 21:33 WBC RBC Hgb Hct MCH RDW Plt Count Seg Neuts % (Manual) Lymphocytes % (Manual) Seg Neutrophils # Man Monocytes # (Manual) PT INR APTT D-Dimer POC ABG pO2 ABG Hemoglobin ABG Oxyhemoglobin ABG Sodium ABG Potassium ABG Glucose Sodium 128 L Potassium 5.1 H Chloride 97.3 L Carbon Dioxide 15 L BUN 48 H Creatinine 2.1 H Glucose 316 H POC Glucose 335 H Hemoglobin A1c Calcium 8.0 L Iron TIBC Ferritin AST Alkaline Phosphatase C-Reactive Protein 20.60 H Total Protein Albumin Arterial Blood Glucose Arterial Blood Ionized Calcium 03/28/21 03/28/21 03/28/21 04:27 04:27 08:46 WBC 28.5 H RBC 2.84 L Hgb 7.4 L Hct 23.9 L MCH 26 L RDW 17.0 H Plt Count 573 H Seg Neuts % (Manual) 92.0 H Lymphocytes % (Manual) 6.0 L Seg Neutrophils # Man 26.2 H Monocytes # (Manual) PT INR APTT D-Dimer POC ABG pO2 ABG Hemoglobin ABG Oxyhemoglobin ABG Sodium ABG Potassium ABG Glucose Sodium 134 L Potassium Chloride Carbon Dioxide 19 L BUN 50 H Creatinine 1.9 H Glucose 287 H POC Glucose 337 H Hemoglobin A1c Calcium 7.8 L Iron TIBC Ferritin AST Alkaline Phosphatase C-Reactive Protein Total Protein Albumin Arterial Blood Glucose Arterial Blood Ionized Calcium 03/28/21 03/28/21 03/29/21 11:28 16:09 00:12 WBC RBC Hgb Hct MCH RDW Plt Count Seg Neuts % (Manual) Lymphocytes % (Manual) Seg Neutrophils # Man Monocytes # (Manual) PT INR APTT D-Dimer POC ABG pO2 ABG Hemoglobin ABG Oxyhemoglobin ABG Sodium ABG Potassium ABG Glucose Sodium Potassium Chloride Carbon Dioxide BUN Creatinine Glucose POC Glucose 367 H 348 H 372 H Hemoglobin A1c Calcium Iron TIBC Ferritin AST Alkaline Phosphatase C-Reactive Protein Total Protein Albumin Arterial Blood Glucose Arterial Blood Ionized Calcium 03/29/21 03/29/21 03/29/21 05:09 07:58 11:16 WBC RBC Hgb Hct MCH RDW Plt Count Seg Neuts % (Manual) Lymphocytes % (Manual) Seg Neutrophils # Man Monocytes # (Manual) PT INR APTT D-Dimer POC ABG pO2 ABG Hemoglobin ABG Oxyhemoglobin ABG Sodium ABG Potassium ABG Glucose Sodium 135 L Potassium Chloride Carbon Dioxide 20 L BUN 49 H Creatinine 1.7 H Glucose 316 H POC Glucose 294 H 249 H Hemoglobin A1c Calcium 7.8 L Iron TIBC Ferritin AST Alkaline Phosphatase C-Reactive Protein Total Protein Albumin Arterial Blood Glucose Arterial Blood Ionized Calcium 03/29/21 03/30/21 03/30/21 15:54 05:38 05:38 WBC 22.6 H RBC 3.29 L Hgb 9.1 L Hct 28.1 L MCH RDW 17.4 H Plt Count 654 H Seg Neuts % (Manual) 92.0 H Lymphocytes % (Manual) 7.0 L Seg Neutrophils # Man 20.8 H Monocytes # (Manual) PT INR APTT D-Dimer POC ABG pO2 ABG Hemoglobin ABG Oxyhemoglobin ABG Sodium ABG Potassium ABG Glucose Sodium Potassium Chloride Carbon Dioxide 21 L BUN 41 H Creatinine 1.5 H Glucose 128 H POC Glucose 150 H Hemoglobin A1c Calcium 8.2 L Iron TIBC Ferritin AST Alkaline Phosphatase C-Reactive Protein Total Protein Albumin Arterial Blood Glucose Arterial Blood Ionized Calcium 03/30/21 03/30/21 07:44 10:52 WBC RBC Hgb Hct MCH RDW Plt Count Seg Neuts % (Manual) Lymphocytes % (Manual) Seg Neutrophils # Man Monocytes # (Manual) PT INR APTT D-Dimer POC ABG pO2 ABG Hemoglobin ABG Oxyhemoglobin ABG Sodium ABG Potassium ABG Glucose Sodium Potassium Chloride Carbon Dioxide BUN Creatinine Glucose POC Glucose 156 H 177 H Hemoglobin A1c Calcium Iron TIBC Ferritin AST Alkaline Phosphatase C-Reactive Protein Total Protein Albumin Arterial Blood Glucose Arterial Blood Ionized Calcium Chest x-ray: report reviewed, image reviewed Additional Studies: CHEST 1 VIEW 03/24/2021 10:13 PM INDICATION / CLINICAL INFORMATION: Fall. COMPARISON: None available. FINDINGS: SUPPORT DEVICES: None. HEART / MEDIASTINUM: No significant abnormality. LUNGS / PLEURA: No significant pulmonary or pleural abnormality. No pneumothorax. ADDITIONAL FINDINGS: No significant additional findings. IMPRESSION: No acute abnormality. Allied health notes reviewed: nursing
[2021-03-30] MEDS: ENOXAPARIN 30 MG/0.3 ML INJ SUB-Q SCH (22:42)
[2021-03-31] MEDS: SODIUM CHLORIDE 0.9% 1000 ML 1,000 ML IV SCH ×2 (01:45→23:08)
[2021-03-31] MEDS: methylPREDNISolone Sod Succinate 40 MG/1 ML INJ IV SCH (01:46)
[2021-03-31] MEDS: PIPERACIL-TAZO 2.25 GM/50 ML 2.25 GM/50 ML BAG IV SCH ×4 (05:27→23:07)
[2021-03-31] MEDS: HYDROcodone/ACETAMINOPHEN 5-325 MG TAB PO PRN (05:32)
[2021-03-31 06:14] LABS: Calcium 8.5 mg/dL (8.4-10.2)
[2021-03-31 06:31] LABS: C-Reactive Protein 4.1 mg/dL (0.00-1.30)
[2021-03-31] MEDS: INSULIN REGULAR, HUMAN 100 UNITS/1 ML SUB-Q SCH ×4 (07:30→22:11)
[2021-03-31 08:22] LABS: Hemoglobin A2 Prime SEE SCANNED RESULT; Hemoglobin Barts SEE SCANNED RESULT; Hemoglobin E SEE SCANNED RESULT; Hemoglobin G SEE SCANNED RESULT; Hemoglobin Lepore SEE SCANNED RESULT; Hemoglobin O-Arab SEE SCANNED RESULT; IEF Confirm SEE SCANNED RESULT; Interpretation SEE SCANNED RESULT; Sickle Solubility Test SEE SCANNED RESULT
--- NOTE | 2021-03-31 09:08 | Progress Note ---
Assessment and Plan 1. Acute kidney injury: Vasomotor GREGOR superimposed on CKD in the setting of volume depletion / hypotension. Patient is also suspected of Myeloproliferative disorder. CT abdomen negative for hydro. Urine studies ordered. Continue IV fluids. Monitor renal function. Creatinine level is improving. Avoid nephrotoxic agents. Meds dosage based on GFR. 2. FEN: Hyperkalemia, improved, monitor. Metabolic acidosis, iimproved, monitor. Hyponatremia, improved, monitor. Monitor volume status and lytes. 3. Status post fall: CT head without any acute process. Monitor. 4. Severe pelvic pain: Likely 2/[address] abdomen pelvis x-ray soft tissue injury without any sign of fracture. Pain management. 5. Leukocytosis: Followed by ID. Heme-onc on board for possible myeloproliferative disorder. 6. Hypotensive episode: Resolved following IV fluid bolus. 7. Normocytic anemia with thrombocytosis: Monitor. Heme-onc on board. 8. Encephalopathy: Metabolic. Improved. Subjective: Patient was seen and examined at the bedside. Objective: General appearance: well-developed, appears stated age, not in distress HEENT: ATNC Neck: trachea midline Respiratory: diminished breath sounds Heart: S1S2, regular, no murmur Abdomen: soft, normoactive bowel sounds, not tender Integumentary: no obvious rash Ext: no edema Neurologic: alert, able to move extremities Subjective Date of service: 03/31/21 Principal diagnosis: Ac. hypoxemic resp failure; S/P fall; Leukocytosis; DM II Objective - Vital Signs Vital signs: Vital Signs - 12hr 03/30/21 03/30/21 03/31/21 22:00 23:52 04:04 Temperature 97.3 F L 97.5 F L Pulse Rate 68 68 71 Respiratory 18 16 16 Rate Blood Pressure 111/60 188/79 O2 Sat by Pulse 100 99 Oximetry 03/31/21 03/31/21 03/31/21 05:26 07:50 08:03 Temperature 98.0 F Pulse Rate 77 Respiratory 16 18 Rate Blood Pressure 148/72 170/68 O2 Sat by Pulse 98 98 Oximetry - Lab 03/31/21 14:06 03/31/21 04:29 Most recent lab results ABG pH 7.364 (7.320-7.450) 03/26/21 18:40 ABG O2 Saturation 91.4 (0-100) 03/26/21 18:40 Calcium 8.5 mg/dL (8.4-10.2) 03/31/21 04:29 Medications & Allergies - Medications Allergies/Adverse Reactions: Allergies No Known Allergies Allergy (Verified 03/24/21 21:46) Home Medications: Home Medications Medication Instructions Recorded Confirmed Last Taken Type Amlodipine Besylate [Norvasc] 10 mg PO DAILY 03/25/21 03/25/21 03/24/21 10:00 History AtorvaSTATin [Lipitor] 40 mg PO QHS 03/25/21 03/25/21 03/24/21 21:00 History Diclofenac 1% [Diclofenac 1% 100 gm TP QID 03/25/21 03/25/21 03/24/21 21:00 History topical gel] Gabapentin [Neurontin] 100 mg PO DAILY 03/25/21 03/25/21 03/24/21 21:00 History Nitrofurantoin Macrocrystal 100 mg PO BID 03/25/21 03/25/21 03/24/21 21:00 History [Nitrofurantoin] hydroCHLOROthiazide [HCTZ] 25 mg PO DAILY 03/25/21 03/25/21 03/24/21 10:00 History lisinopriL [Zestril TAB] 40 mg PO QDAY 03/25/21 03/25/21 03/24/21 10:00 History metFORMIN [Glucophage] 500 mg PO BID 03/25/21 03/25/21 03/24/21 17:00 History Insulin NPH/Regular [NovoLIN 70/30] 10 units SQ BID 03/26/21 03/26/21 Unknown History Active Medications: Generic Name Dose Route Start Last Admin Trade Name Freq PRN Reason Stop Dose Admin Acetaminophen 650 mg 03/25/21 10:30 03/25/21 10:56 Acetaminophen 325 Mg Tab PO 650 mg Q4H PRN Administration Pain MILD(1-3)/Fever >100.5/GUAJARDO Hydrocodone Bitart/Acetaminophen 2 each 03/25/21 10:30 03/31/21 05:32 Hydrocodone/Acetaminophen 5-325 Mg Tab PO 2 each Q6H PRN Administration Pain, Moderate (4-6) Amlodipine Besylate 10 mg 03/30/21 08:30 03/30/21 08:17 Amlodipine 10 Mg Tab PO 10 mg QDAY PHONG Administration Atorvastatin Calcium 40 mg 03/25/21 22:00 03/30/21 22:42 Atorvastatin 40 Mg Tab PO 40 mg QHS PHONG Administration Enoxaparin Sodium 30 mg 03/27/21 22:00 03/30/21 22:42 Enoxaparin 30 Mg/0.3 Ml Inj SUB-Q 30 mg QHS PHONG Administration Hydralazine HCl 5 mg 03/25/21 10:30 03/29/21 17:33 Hydralazine 20 Mg/1 Ml Inj IV 5 mg Q30MIN PRN Administration Hypertension Hydromorphone HCl 1 mg 03/26/21 15:00 Hydromorphone 1 Mg/1 Ml Inj IV Q2H PRN Pain , Severe (7-10) Hydromorphone HCl 2 mg 03/28/21 11:49 03/30/21 16:12 Hydromorphone 2 Mg/1 Ml Inj IV 2 mg Q4H PRN Administration Pain , Severe (7-10) Sodium Chloride 1,000 mls @ 100 mls/hr 03/25/21 11:00 03/31/21 01:45 Nacl 0.9% 1000 Ml IV 100 mls/hr DIRECT PHONG Administration Piperacillin Sod/Tazobactam Sod 2.25 gm in 50 mls @ 100 mls/hr 03/26/21 14:00 03/31/21 05:27 Zosyn/Ns 2.25 Gm/50ml IV 100 mls/hr Q6HR PHONG Administration Insulin Human Isoph/Insulin Regular 22 unit 03/29/21 10:00 03/30/21 22:52 Insulin Nph/Regular 70/30 Inj SUB-Q Not Given BID PHONG Insulin Human Regular 0 units 03/26/21 22:00 03/30/21 22:53 Insulin Regular, Human 100 Units/1 Ml SUB-Q Not Given ACHS [facility] Protocol Methylprednisolone Sodium Succinate 40 mg 03/29/21 02:00 03/31/21 01:46 Methylprednisolone Sod Succinate 40 Mg/1 Ml Inj IV 40 mg Q24H PHONG Administration Midazolam HCl 5 mg 03/30/21 11:54 03/30/21 14:20 Midazolam 5 Mg/5 Ml Inj Mdv IV 0.5 mg ONCE PHONG Administration Ondansetron HCl 4 mg 03/25/21 10:30 03/25/21 18:18 Ondansetron 4 Mg/2 Ml Inj IV 4 mg Q8H PRN Administration Nausea And Vomiting Oxycodone HCl 20 mg 03/28/21 13:00 03/30/21 22:42 Oxycodone Er 20 Mg Tab PO 20 mg Q12HR PHONG Administration Sodium Bicarbonate 650 mg 03/27/21 10:30 03/30/21 22:42 Sodium Bicarbonate 650 Mg Tab PO 650 mg BID PHONG Administration Sodium Polystyrene Sulfonate 15 gm 03/27/21 10:00 Sodium Polystyrene 15 Gm/60 Ml Oral Liqd PO Q6H PRN Hyperkalemia
--- NOTE | 2021-03-31 10:36 | Hem/Onc Progress Note ---
Subjective Interval history: HEME ONC DATA REVIEW lino/onc televisit f/u spoke to pt on telephone 75yo woman admitted after falling admitted for severe R hip pain-- can barely walk says she has had same pain for months found to have high plt and WBC and elevated alk phos abn pelvis MRI-->sacroillitis, piriformis strain, obturator tear, maybe hematoma she has been on steroid pulse for a few days and she says her pain is not improved NUCLEAR BONE SCAN NEG BMBX DONE YESTERDAY has been on IV Abx DATA REVIEWED BELOW Hgb electrophoresis nl IMP: I favor myeloproliferative disorder/myelofibrosis over "reactive" high counts, but either is possible severe R hip pain with abn imaging, this could be inflam/gout related to MPD not benefitting from steroids traumatic injury could be the cause of this, but wondering whether this preceded fall heme malig or solid tumor malignancy is a possibility, but so far not seen REC: await BMBx interpretation steroid taper opiate meds for pain still receiving iV ABx is there fluid to drain? Active Medications Enoxaparin Sodium (Enoxaparin 30 Mg/0.3 Ml Inj) 30 mg SUB-Q QHS [facility] Last Admin: 03/30/21 22:42 Dose: 30 mg Documented by: Piperacillin Sod/Tazobactam Sod (Zosyn/Ns 2.25 Gm/50ml) 2.25 gm in 50 mls @ 100 mls/hr IV Q6HR [facility] Last Admin: 03/31/21 05:27 Dose: 100 mls/hr Documented by: Metformin HCl (Metformin 500 Mg Tab) 500 mg PO BID [facility] Methylprednisolone Sodium Succinate (Methylprednisolone Sod Succinate 40 Mg/1 Ml Inj) 40 mg IV Q24H [facility] Last Admin: 03/31/21 01:46 Dose: 40 mg Documented by: Laboratory Last Values WBC 22.6 K/mm3 (4.5-11.0) H 03/30/21 05:38 Hgb 9.1 gm/dl (10.1-14.3) L 03/30/21 05:38 Plt Count 654 K/mm3 (140-440) H 03/30/21 05:38 Seg Neuts % (Manual) 92.0 % (40.0-70.0) H 03/30/21 05:38 Band Neutrophils % 1.0 % 03/28/21 04:27 Lymphocytes % (Manual) 7.0 % (13.4-35.0) L 03/30/21 05:38 Monocytes % (Manual) 1.0 % (0.0-7.3) 03/30/21 05:38 Metamyelocytes % 1.0 % 03/28/21 04:27 ESR > 140.0 mm/Hr (0-20) 03/25/21 19:04 Creatinine 1.2 mg/dL (0.6-1.2) 03/31/21 04:29 Ferritin 1071.0 ng/mL (10.0-200.0) H 03/27/21 04:44 C-Reactive Protein 4.10 mg/dL (0.00-1.30) H 03/31/21 04:29 Urine Mucus Few /HPF 03/25/21 Unknown Nasal Screen MRSA (PCR) Negative (Negative) 03/25/21 09:54 Objective - Constitutional Vitals: Last Vital Signs Temp 98.0 F 03/31/21 08:03 Pulse 77 03/31/21 08:03 Resp 18 03/31/21 08:03 BP 170/68 03/31/21 08:03 Pulse Ox 98 03/31/21 08:03 - Labs Lab Results: Laboratory Results - last 24 hr 03/27/21 03/30/21 03/30/21 04:44 07:44 10:52 Hgb Comment See scanned result Sickle Cell Solubility See scanned result Hemoglobin A See scanned result Hemoglobin A2 See scanned result Hemoglobin A2 Prime See scanned result Hemoglobin C See scanned result Hemoglobin D See scanned result Hemoglobin E See scanned result Hgb F Diffential Stain See scanned result Hemoglobin F Quant See scanned result Hemoglobin G See scanned result Hemoglobin S See scanned result Hemoglobin [place] See scanned result Hemoglobin [place] See scanned result Hemoglobin [place] See scanned result Variant Hemoglobin See scanned result Abnorm Hgb IEF Confirm See scanned result Hemoglobin Interpret See scanned result Hemoglobinopathy Note See scanned result Sodium Potassium Chloride Carbon Dioxide Anion Gap BUN Creatinine Estimated GFR BUN/Creatinine Ratio Glucose POC Glucose 156 H 177 H Calcium C-Reactive Protein 03/30/21 03/30/21 03/31/21 16:45 22:46 04:29 Hgb Comment Sickle Cell Solubility Hemoglobin A Hemoglobin A2 Hemoglobin A2 Prime Hemoglobin C Hemoglobin D Hemoglobin E Hgb F Diffential Stain Hemoglobin F Quant Hemoglobin G Hemoglobin S Hemoglobin [place] Hemoglobin [place] Hemoglobin [place] Variant Hemoglobin Abnorm Hgb IEF Confirm Hemoglobin Interpret Hemoglobinopathy Note Sodium 142 Potassium 4.5 Chloride 109.9 H Carbon Dioxide 23 Anion Gap 14 BUN 35 H Creatinine 1.2 Estimated GFR 44 BUN/Creatinine Ratio 29 Glucose 71 POC Glucose 118 H 79 Calcium 8.5 C-Reactive Protein 4.10 H 03/31/21 07:17 Hgb Comment Sickle Cell Solubility Hemoglobin A Hemoglobin A2 Hemoglobin A2 Prime Hemoglobin C Hemoglobin D Hemoglobin E Hgb F Diffential Stain Hemoglobin F Quant Hemoglobin G Hemoglobin S Hemoglobin [place] Hemoglobin [place] Hemoglobin [place] Variant Hemoglobin Abnorm Hgb IEF Confirm Hemoglobin Interpret Hemoglobinopathy Note Sodium Potassium Chloride Carbon Dioxide Anion Gap BUN Creatinine Estimated GFR BUN/Creatinine Ratio Glucose POC Glucose 113 H Calcium C-Reactive Protein Medications & Allergies - Medications Allergies/Adverse Reactions: Allergies No Known Allergies Allergy (Verified 03/24/21 21:46) Home Medications: Home Medications Medication Instructions Recorded Confirmed Last Taken Type Amlodipine Besylate [Norvasc] 10 mg PO DAILY 03/25/21 03/25/21 03/24/21 10:00 History AtorvaSTATin [Lipitor] 40 mg PO QHS 03/25/21 03/25/21 03/24/21 21:00 History Diclofenac 1% [Diclofenac 1% 100 gm TP QID 03/25/21 03/25/21 03/24/21 21:00 History topical gel] Gabapentin [Neurontin] 100 mg PO DAILY 03/25/21 03/25/21 03/24/21 21:00 History Nitrofurantoin Macrocrystal 100 mg PO BID 03/25/21 03/25/21 03/24/21 21:00 History [Nitrofurantoin] hydroCHLOROthiazide [HCTZ] 25 mg PO DAILY 03/25/21 03/25/21 03/24/21 10:00 History lisinopriL [Zestril TAB] 40 mg PO QDAY 03/25/21 03/25/21 03/24/21 10:00 History metFORMIN [Glucophage] 500 mg PO BID 03/25/21 03/25/21 03/24/21 17:00 History Insulin NPH/Regular [NovoLIN 70/30] 10 units SQ BID 03/26/21 03/26/21 Unknown History Active Medications: Generic Name Dose Route Start Last Admin Trade Name Freq PRN Reason Stop Dose Admin Acetaminophen 650 mg 03/25/21 10:30 03/25/21 10:56 Acetaminophen 325 Mg Tab PO 650 mg Q4H PRN Administration Pain MILD(1-3)/Fever >100.5/GUAJARDO Hydrocodone Bitart/Acetaminophen 2 each 03/25/21 10:30 03/31/21 05:32 Hydrocodone/Acetaminophen 5-325 Mg Tab PO 2 each Q6H PRN Administration Pain, Moderate (4-6) Amlodipine Besylate 10 mg 03/30/21 08:30 03/30/21 08:17 Amlodipine 10 Mg Tab PO 10 mg QDAY [facility] Administration Atorvastatin Calcium 40 mg 03/25/21 22:00 03/30/21 22:42 Atorvastatin 40 Mg Tab PO 40 mg QHS [facility] Administration Enoxaparin Sodium 30 mg 03/27/21 22:00 03/30/21 22:42 Enoxaparin 30 Mg/0.3 Ml Inj SUB-Q 30 mg QHS [facility] Administration Hydralazine HCl 5 mg 03/25/21 10:30 03/29/21 17:33 Hydralazine 20 Mg/1 Ml Inj IV 5 mg Q30MIN PRN Administration Hypertension Hydralazine HCl 50 mg 03/31/21 11:00 Hydralazine 25 Mg Tab PO BID [facility] Hydromorphone HCl 1 mg 03/26/21 15:00 Hydromorphone 1 Mg/1 Ml Inj IV Q2H PRN Pain , Severe (7-10) Hydromorphone HCl 2 mg 03/28/21 11:49 03/30/21 16:12 Hydromorphone 2 Mg/1 Ml Inj IV 2 mg Q4H PRN Administration Pain , Severe (7-10) Sodium Chloride 1,000 mls @ 100 mls/hr 03/25/21 11:00 03/31/21 01:45 Nacl 0.9% 1000 Ml IV 100 mls/hr DIRECT [facility] Administration Piperacillin Sod/Tazobactam Sod 2.25 gm in 50 mls @ 100 mls/hr 03/26/21 14:00 03/31/21 05:27 Zosyn/Ns 2.25 Gm/50ml IV 100 mls/hr Q6HR [facility] Administration Insulin Human Isoph/Insulin Regular 22 unit 03/29/21 10:00 05/17/21 22:52 Insulin Nph/Regular 70/30 Inj SUB-Q Not Given BID [facility] Insulin Human Regular 0 units 03/26/21 22:00 03/30/21 22:53 Insulin Regular, Human 100 Units/1 Ml SUB-Q Not Given ACHS [facility] Protocol Metformin HCl 500 mg 03/31/21 22:00 Metformin 500 Mg Tab PO BID [facility] Methylprednisolone Sodium Succinate 40 mg 03/29/21 02:00 03/31/21 01:46 Methylprednisolone Sod Succinate 40 Mg/1 Ml Inj IV 40 mg Q24H [facility] Administration Midazolam HCl 5 mg 03/30/21 11:54 03/30/21 14:20 Midazolam 5 Mg/5 Ml Inj Mdv IV 0.5 mg ONCE [facility] Administration Ondansetron HCl 4 mg 03/25/21 10:30 03/25/21 18:18 Ondansetron 4 Mg/2 Ml Inj IV 4 mg Q8H PRN Administration Nausea And Vomiting Oxycodone HCl 20 mg 03/28/21 13:00 03/30/21 22:42 Oxycodone Er 20 Mg Tab PO 20 mg Q12HR [facility] Administration Sodium Bicarbonate 650 mg 03/27/21 10:30 03/30/21 22:42 Sodium Bicarbonate 650 Mg Tab PO 650 mg BID [facility] Administration Sodium Polystyrene Sulfonate 15 gm 03/27/21 10:00 Sodium Polystyrene 15 Gm/60 Ml Oral Liqd PO Q6H PRN Hyperkalemia
[2021-03-31] MEDS: SODIUM BICARBONATE 650 MG TAB PO SCH ×2 (11:04→21:16)
[2021-03-31] MEDS: oxyCODONE ER 20 MG TAB PO SCH ×2 (11:04→21:46)
[2021-03-31] MEDS: hydrALAZINE 25 MG TAB PO SCH ×2 (11:04→21:47)
[2021-03-31] MEDS: amLODIPine 10 MG TAB PO SCH (11:05)
[2021-03-31] MEDS: INSULIN NPH/REGULAR 70/30 INJ SUB-Q SCH ×2 (11:05→22:10)
[2021-03-31 14:38] LABS: Hematocrit 27.6 % (30.3-42.9); Hemoglobin 8.6 gm/dl (10.1-14.3); Mean Corpuscular HGB Conc 31 % (30-34); Mean Corpuscular Volume 85 fl (79-97); Platelet Count 529 K/mm3 (140-440); Red Blood Count 3.25 M/mm3 (3.65-5.03)
--- NOTE | 2021-03-31 14:46 | Progress Note ---
Assessment and Plan Cultures: Blood culture 03/25/2021 no growth today MRSA PCR negative Assessment: 75-year-old female with history of hypertension, diabetes, admitted on 03/24/2021 secondary to a fall in the bathroom at home pain for several months: #Leukocytosis and thrombocytosis: better 34K--->28K. Of unclear etiology. Reactive secondary to Pelvic trauma/infection?. Patient complaining of pelvic pain for several months. CT abdomen shows fluid tracks along the right medial acetabulum and thickening of the sacrospinosus ligament. Abdominal CT otherwise unremarkable. Patient denies any weight loss. Patient is not the best historian. Elevated procalcitonin in the setting of acute kidney injury. #Bilateral ischial pain R>L: On exam severe tenderness noted mild induration on right ischeal area ? Abscess ? Hematoma ?osteo. Patient reports pain has been there for several weeks and radiates to the right foot. CRP 26--->20. Pelvic MRI with ischial osteomyeltiis?, near completion thorough for the right obturator intrnist muscle with hematoma in right pitifomis. Also right ischiofemoral impingement with complete tear quadratus femoralitis. Lumbar MRI with severe DJD. #Anemia #Elevated LFTs: Mild, AST 46. Unclear etiology, CT without cholecystitis. #GREGOR: Creatinine up Recommendations: -BMBx, BBx performed yesterday, awaiting pathology -Initial gram stain negative, no PMNs. -CRP strongly improved. -Less likely to be an acute osteomyelitis at present. Await pathology -If discharging plan on PO Abx until pathology available. -Continue Zosyn IV for now -Heme-onc on board D/W Dr. Krause. Trenton Alegre MD [facility] ([facility] O: [phone] F: [phone] Subjective Date of service: 03/31/21 Principal diagnosis: Ac. hypoxemic resp failure; S/P fall; Leukocytosis; DM II Interval history: afebrile, white count improving but still elevated. Objective - Exam Narrative Exam: General appearance: Alert in no acute distress Eyes: anicteric sclerae, moist conjunctivae; no lid-lag HENT: Normocephalic, Atraumatic; normal external ears, nares open, oropharynx limited Lungs: CTA CV: RRR no murmur Abdomen: Soft, non-tender; no masses or hepatosplenomegaly Extremities: no edema, no cyanosis, bilateral ischial area tenderness Skin: Ischial tenderness improved Psych: Not agitated Neuro: Not agitated - Constitutional Vitals: Vital Signs Temp Pulse Resp BP Pulse Ox 97.5 F L 85 19 183/91 98 03/31/21 10:49 03/31/21 10:51 03/31/21 10:49 03/31/21 10:52 03/31/21 10:51 Temperature -Last 24 Hours Temperature 97.5 F Temperature 98.0 F Temperature 97.5 F Temperature 97.3 F Temperature 97.4 F Temperature 98.6 F - Labs CBC & Chem 7: 03/31/21 14:06 03/31/21 04:29 Labs: Abnormal lab results 03/30/21 03/31/21 03/31/21 Range/Units 16:45 04:29 07:17 WBC (4.5-11.0) K/mm3 RBC (3.65-5.03) M/mm3 Hgb (10.1-14.3) gm/dl Hct (30.3-42.9) % MCH (28-32) pg RDW (13.2-15.2) % Plt Count (140-440) K/mm3 Chloride 109.9 H (98-107) mmol/L BUN 35 H (7-17) mg/dL POC Glucose 118 H 113 H (70-105) mg/dL C-Reactive Protein 4.10 H (0.00-1.30) mg/dL 03/31/21 03/31/21 Range/Units 11:07 14:06 WBC 15.1 H (4.5-11.0) K/mm3 RBC 3.25 L (3.65-5.03) M/mm3 Hgb 8.6 L (10.1-14.3) gm/dl Hct 27.6 L (30.3-42.9) % MCH 27 L (28-32) pg RDW 17.0 H (13.2-15.2) % Plt Count 529 H (140-440) K/mm3 Chloride (98-107) mmol/L BUN (7-17) mg/dL POC Glucose 158 H (70-105) mg/dL C-Reactive Protein (0.00-1.30) mg/dL
--- NOTE | 2021-03-31 14:59 | Progress Note ---
Assessment and Plan Status post fall -CT head without any acute process -Patient has no focal deficit -Continue to monitor clinically and PT eval when clinically more stable Severe pelvic pain -Likely traumatic following fall -CT abdomen pelvis x-ray soft tissue injury without any sign of fracture -Pain management as needed -pelvic and lumbar spine MRI: degenerative changes,fluid collection seen at right SI joint and torn tendons, Ortho recommend no surgical intervention needed. IR consulted and recommended BM biopsy Leukocytosis with WBC > 31K -patient on empiric antibiotic -ID on board and neg culture -Heme-onc on board for possible myeloproliferative disorder - started on steroid -Ordered bone scan showed no osseous malignancy - planned for BM biopsy GREGOR, vasomotor nephropathy -Continue gentle IV fluid hydration, BMP daily -Consulted nephrology, avoid nephrotoxins DM type 2 -Consistent carb diet placed on SSI, ordered A1c and nephrology paged Hyponatrenia, likely due to dehydration, continue IV fluid Hypotensive episode, resolved following IV fluid boluses Normocytic anemia with thrombocytosis -Monitor H&H follow clinically -Heme-onc on board Hypertension, initiate Norvasc, monitor BP, IV hydralazine as needed DVT prophylaxis with Lovenox Daily clinical course: 03/25/21: Following admission patient noted to be hypotensive, given IV fluid boluses and continued fluid with maintenance rate. Plan to transfer to ICU to start on pressor if BP does not improve with fluid challenge. 03/26/21: Patient continues to complains of pelvic pain. Noted to have CVA tenderness over the right ischeal tuberosity. Will Obtain pelvic MRI with contrast and lumbar spine MRI evaluation for possible epidural abscess, discitis, rectal ischial abscess, continue empiric antibiotics for now, ID following. Heme-onc consulted possible underlying myeloproliferative disorder we will follow pending labs- 03/27: Cr trending up - consult nephrology, MRI pelvis pending, ordered bone scan per heam recommendation. started on steroid. follow BMP, trend Cr 03/28: No fracture seen on xray/mri scan but fluid collection seen at right SI joint and torn tendons, Ortho recommend CT guided aspiration right SI joint/pelvic areas - IR consulted. Cr slightly improved, cont to follow BMP. cont steroid, follow CBC 03/29: Renal function remains stable, patient stated that she is slightly feeling better today. Discussed with IR and recommending bone marrow biopsy from right ischium -order placed. Patient remains on steroid pulse dose for possible myeloproliferative disorder. Continue to follow clinically. Will order for PT eval following bone marrow biopsy. 03/30: waiting on BM biopsy, serum creatinine trending down, continue gentle IV fluid hydration. Will assess further with PT eval following removal of the biopsy. 03/31: Pending bone marrow biopsy result. right iliac bone marrow aspiration culture result pending. Continue to follow clinically. Discharge planning when clears by ID and hematology. Subjective Date of service: 03/31/21 Principal diagnosis: Ac. hypoxemic resp failure; S/P fall; Leukocytosis; DM II Interval history: Patient seen and examined. Medical records and medication list reviewed. No acute event overnight noted by the RN. Patient states pelvic pain much improved poor appetite, Discussed plan of care at bedside with patient. Objective - Exam Narrative Exam: GENERAL: well-developed and well-nourished elderly female appears in moderate distress HEENT: Normocephalic. Atraumatic. No conjunctival congestion or icterus. Patient has moist mucous membranes. NECK: Supple. Trachea midline. CHEST/LUNGS: Clear to auscultated bilaterally, breathing nonlabored. No wheezes crackles or rhonchi. HEART/CARDIOVASCULAR: Regular in rate and rhythm. S1 and S2 positive. ABDOMEN: Abdomen is soft, nontender. Patient has normal bowel sounds. SKIN: There is no rash. Warm and dry. NEURO: No focal motor deficit. Follows command. MUSCULOSKELETAL: No joint effusion EXTRIMITY: No edema, no cyanosis or clubbing. PSYCH: Cooperative. - Constitutional Vitals: Vital Signs - 12hr 03/31/21 03/31/21 03/31/21 04:04 05:26 07:50 Temperature 97.5 F L Pulse Rate 71 Respiratory 16 16 Rate Blood Pressure 188/79 148/72 O2 Sat by Pulse 99 98 Oximetry 03/31/21 03/31/21 03/31/21 08:03 10:49 10:51 Temperature 98.0 F 97.5 F L Pulse Rate 77 82 85 Respiratory 18 19 Rate Blood Pressure 170/68 213/78 195/78 O2 Sat by Pulse 98 98 98 Oximetry 03/31/21 10:52 Temperature Pulse Rate Respiratory Rate Blood Pressure 183/91 O2 Sat by Pulse Oximetry - Labs CBC & Chem 7: 03/31/21 14:06 04/01/21 04:39 Labs: Abnormal lab results 03/30/21 03/31/21 03/31/21 Range/Units 16:45 04:29 07:17 WBC (4.5-11.0) K/mm3 RBC (3.65-5.03) M/mm3 Hgb (10.1-14.3) gm/dl Hct (30.3-42.9) % MCH (28-32) pg RDW (13.2-15.2) % Plt Count (140-440) K/mm3 Chloride 109.9 H (98-107) mmol/L BUN 35 H (7-17) mg/dL POC Glucose 118 H 113 H (70-105) mg/dL C-Reactive Protein 4.10 H (0.00-1.30) mg/dL 03/31/21 03/31/21 Range/Units 11:07 14:06 WBC 15.1 H (4.5-11.0) K/mm3 RBC 3.25 L (3.65-5.03) M/mm3 Hgb 8.6 L (10.1-14.3) gm/dl Hct 27.6 L (30.3-42.9) % MCH 27 L (28-32) pg RDW 17.0 H (13.2-15.2) % Plt Count 529 H (140-440) K/mm3 Chloride (98-107) mmol/L BUN (7-17) mg/dL POC Glucose 158 H (70-105) mg/dL C-Reactive Protein (0.00-1.30) mg/dL
[2021-03-31] MEDS: metFORMIN 500 MG TAB PO SCH (17:03)
[2021-03-31] MEDS: ENOXAPARIN 30 MG/0.3 ML INJ SUB-Q SCH (21:17)
[2021-04-01] MEDS: methylPREDNISolone Sod Succinate 40 MG/1 ML INJ IV SCH (01:32)
[2021-04-01] MEDS: PIPERACIL-TAZO 2.25 GM/50 ML 2.25 GM/50 ML BAG IV SCH ×4 (05:19→23:03)
[2021-04-01 05:40] LABS: Albumin 1.8 g/dL (3.8-4.8); Gamma Globulin 1.1 g/dL (0.8-1.7)
[2021-04-01 06:31] LABS: Calcium 8.2 mg/dL (8.4-10.2)
[2021-04-01] MEDS: INSULIN REGULAR, HUMAN 100 UNITS/1 ML SUB-Q SCH ×4 (08:00→21:34)
[2021-04-01] MEDS: HYDROmorphone 2 MG/1 ML INJ IV PRN ×3 (08:40→17:10)
[2021-04-01] MEDS: metFORMIN 500 MG TAB PO SCH (09:06)
[2021-04-01] MEDS: hydrALAZINE 25 MG TAB PO SCH ×2 (10:11→21:32)
[2021-04-01] MEDS: amLODIPine 10 MG TAB PO SCH (10:11)
[2021-04-01] MEDS: predniSONE 20 MG TAB PO SCH (10:11)
[2021-04-01] MEDS: oxyCODONE ER 20 MG TAB PO SCH ×2 (10:11→21:32)
[2021-04-01] MEDS: SODIUM BICARBONATE 650 MG TAB PO SCH ×2 (10:11→21:32)
[2021-04-01] MEDS ORDERED: D5W/0.9% NACL 1,000 ML IV SCH (10:30)
[2021-04-01] MEDS ORDERED: DEXTROSE 50% IN WATER (25GM) 50 ML VIAL IV PRN (10:30)
--- NOTE | 2021-04-01 11:28 | Progress Note ---
Assessment and Plan 1. Acute kidney injury: Vasomotor GREGOR superimposed on CKD in the setting of volume depletion / hypotension. Patient is also suspected of Myeloproliferative disorder. CT abdomen negative for hydro. Monitor renal function. Creatinine level is better. Avoid nephrotoxic agents. Meds dosage based on GFR. 2. FEN: Hyperkalemia, improved, monitor. Metabolic acidosis, iimproved, monitor. Hyponatremia, improved, monitor. Monitor volume status and lytes. 3. Status post fall: CT head without any acute process. Monitor. 4. Severe pelvic pain: Likely 2/[address] abdomen pelvis x-ray soft tissue injury without any sign of fracture. Pain management. 5. Leukocytosis: Followed by ID. Heme-onc on board for possible myeloproliferative disorder. 6. Hypotensive episode: Resolved following IV fluid bolus. 7. Normocytic anemia with thrombocytosis: Monitor. Heme-onc on board. 8. Encephalopathy: Metabolic. Improved. Subjective: Patient was not examined today. However the examination findings from other providers noted. The current and previous medical records are reviewed in detail as are laboratory and imaging data reviewed when appropriate. Medications being given are also reviewed. In addition the case has been discussed with the attending hospitalist and the nurse when needed. New renal recommendations as above. Subjective Date of service: 04/01/21 Principal diagnosis: Ac. hypoxemic resp failure; S/P fall; Leukocytosis; DM II Objective - Vital Signs Vital signs: Vital Signs - 12hr 04/01/21 04/01/21 04/01/21 00:15 04:50 08:15 Temperature 98.0 F 98.0 F 97.3 F L Pulse Rate 73 74 76 Respiratory 20 18 20 Rate Blood Pressure 141/59 144/52 168/72 O2 Sat by Pulse 99 100 98 Oximetry 04/01/21 10:00 Temperature Pulse Rate 76 Respiratory Rate Blood Pressure O2 Sat by Pulse Oximetry - Lab 03/31/21 14:06 04/01/21 04:39 Most recent lab results ABG pH 7.364 (7.320-7.450) 03/26/21 18:40 ABG O2 Saturation 91.4 (0-100) 03/26/21 18:40 Calcium 8.2 mg/dL (8.4-10.2) L 04/01/21 04:39 Medications & Allergies - Medications Allergies/Adverse Reactions: Allergies No Known Allergies Allergy (Verified 03/24/21 21:46) Home Medications: Home Medications Medication Instructions Recorded Confirmed Last Taken Type Amlodipine Besylate [Norvasc] 10 mg PO DAILY 03/25/21 03/25/21 03/24/21 10:00 History AtorvaSTATin [Lipitor] 40 mg PO QHS 03/25/21 03/25/21 03/24/21 21:00 History Diclofenac 1% [Diclofenac 1% 100 gm TP QID 03/25/21 03/25/21 03/24/21 21:00 History topical gel] Gabapentin [Neurontin] 100 mg PO DAILY 03/25/21 03/25/21 03/24/21 21:00 History Nitrofurantoin Macrocrystal 100 mg PO BID 03/25/21 03/25/21 03/24/21 21:00 History [Nitrofurantoin] hydroCHLOROthiazide [HCTZ] 25 mg PO DAILY 03/25/21 03/25/21 03/24/21 10:00 History lisinopriL [Zestril TAB] 40 mg PO QDAY 03/25/21 03/25/21 03/24/21 10:00 History metFORMIN [Glucophage] 500 mg PO BID 03/25/21 03/25/21 03/24/21 17:00 History Insulin NPH/Regular [NovoLIN 70/30] 10 units SQ BID 03/26/21 03/26/21 Unknown History Active Medications: Generic Name Dose Route Start Last Admin Trade Name Freq PRN Reason Stop Dose Admin Acetaminophen 650 mg 03/25/21 10:30 03/25/21 10:56 Acetaminophen 325 Mg Tab PO 650 mg Q4H PRN Administration Pain MILD(1-3)/Fever >100.5/GUAJARDO Hydrocodone Bitart/Acetaminophen 2 each 03/25/21 10:30 03/31/21 05:32 Hydrocodone/Acetaminophen 5-325 Mg Tab PO 2 each Q6H PRN Administration Pain, Moderate (4-6) Amlodipine Besylate 10 mg 03/30/21 08:30 04/01/21 10:11 Amlodipine 10 Mg Tab PO 10 mg QDAY [facility] Administration Atorvastatin Calcium 40 mg 03/25/21 22:00 03/31/21 21:16 Atorvastatin 40 Mg Tab PO 40 mg QHS [facility] Administration Dextrose 50 gm 04/01/21 10:30 Dextrose 50% In Water (25gm) 50 Ml Vial IV Q30MIN PRN Hypoglycemia Protocol Enoxaparin Sodium 30 mg 03/27/21 22:00 03/31/21 21:17 Enoxaparin 30 Mg/0.3 Ml Inj SUB-Q 30 mg QHS [facility] Administration Hydralazine HCl 5 mg 03/25/21 10:30 03/29/21 17:33 Hydralazine 20 Mg/1 Ml Inj IV 5 mg Q30MIN PRN Administration Hypertension Hydralazine HCl 50 mg 03/31/21 11:00 04/01/21 10:11 Hydralazine 25 Mg Tab PO 50 mg BID [facility] Administration Hydromorphone HCl 2 mg 03/28/21 11:49 03/30/21 16:12 Hydromorphone 2 Mg/1 Ml Inj IV 2 mg Q4H PRN Administration Pain , Severe (7-10) Piperacillin Sod/Tazobactam Sod 2.25 gm in 50 mls @ 100 mls/hr 03/26/21 14:00 04/01/21 05:19 Zosyn/Ns 2.25 Gm/50ml IV 100 mls/hr Q6HR [facility] Administration Dextrose/Sodium Chloride 1,000 mls @ 42 mls/hr 04/01/21 10:30 04/01/21 10:09 D5ns IV 42 mls/hr DIRECT PHONG Administration Insulin Human Regular 0 units 03/26/21 22:00 04/01/21 08:00 Insulin Regular, Human 100 Units/1 Ml SUB-Q Not Given ACHS [facility] Protocol Ondansetron HCl 4 mg 03/25/21 10:30 03/25/21 18:18 Ondansetron 4 Mg/2 Ml Inj IV 4 mg Q8H PRN Administration Nausea And Vomiting Oxycodone HCl 20 mg 03/28/21 13:00 04/01/21 10:11 Oxycodone Er 20 Mg Tab PO 20 mg Q12HR [facility] Administration Prednisone 20 mg 04/01/21 10:00 04/01/21 10:11 Prednisone 20 Mg Tab PO 04/04/21 09:59 20 mg QDAY PHONG Administration Sodium Bicarbonate 650 mg 03/27/21 10:30 04/01/21 10:11 Sodium Bicarbonate 650 Mg Tab PO 650 mg BID PHONG Administration Sodium Polystyrene Sulfonate 15 gm 03/27/21 10:00 Sodium Polystyrene 15 Gm/60 Ml Oral Liqd PO Q6H PRN Hyperkalemia
--- NOTE | 2021-04-01 12:01 | Progress Note ---
Assessment and Plan Status post fall -CT head without any acute process -Patient has no focal deficit -Continue to monitor clinically and PT eval when clinically more stable Severe pelvic pain -Likely traumatic following fall -CT abdomen pelvis x-ray soft tissue injury without any sign of fracture -Pain management as needed -pelvic and lumbar spine MRI: degenerative changes,fluid collection seen at right SI joint and torn tendons, Ortho recommend no surgical intervention needed. IR consulted and recommended BM biopsy Leukocytosis with WBC > 31K -patient on empiric antibiotic -ID on board and neg culture -Heme-onc on board for possible myeloproliferative disorder - started on steroid -Ordered bone scan showed no osseous malignancy - planned for BM biopsy GREGOR, vasomotor nephropathy -Continue gentle IV fluid hydration, BMP daily -Consulted nephrology, avoid nephrotoxins DM type 2 -Consistent carb diet placed on SSI, ordered A1c and nephrology paged Hyponatrenia, likely due to dehydration, continue IV fluid Hypotensive episode, resolved following IV fluid boluses Normocytic anemia with thrombocytosis -Monitor H&H follow clinically -Heme-onc on board Hypertension, initiate Norvasc, monitor BP, IV hydralazine as needed DVT prophylaxis with Lovenox Daily clinical course: 03/25/21: Following admission patient noted to be hypotensive, given IV fluid boluses and continued fluid with maintenance rate. Plan to transfer to ICU to start on pressor if BP does not improve with fluid challenge. 03/26/21: Patient continues to complains of pelvic pain. Noted to have CVA tenderness over the right ischeal tuberosity. Will Obtain pelvic MRI with contrast and lumbar spine MRI evaluation for possible epidural abscess, discitis, rectal ischial abscess, continue empiric antibiotics for now, ID following. Heme-onc consulted possible underlying myeloproliferative disorder we will follow pending labs- 03/27: Cr trending up - consult nephrology, MRI pelvis pending, ordered bone scan per heam recommendation. started on steroid. follow BMP, trend Cr 03/28: No fracture seen on xray/mri scan but fluid collection seen at right SI joint and torn tendons, Ortho recommend CT guided aspiration right SI joint/pelvic areas - IR consulted. Cr slightly improved, cont to follow BMP. cont steroid, follow CBC 03/29: Renal function remains stable, patient stated that she is slightly feeling better today. Discussed with IR and recommending bone marrow biopsy from right ischium -order placed. Patient remains on steroid pulse dose for possible myeloproliferative disorder. Continue to follow clinically. Will order for PT eval following bone marrow biopsy. 03/30: waiting on BM biopsy, serum creatinine trending down, continue gentle IV fluid hydration. Will assess further with PT eval following removal of the biopsy. 03/31: Pending bone marrow biopsy result. right iliac bone marrow aspiration culture result pending. Continue to follow clinically. Discharge planning when clears by ID and hematology. 04/01: BG dropped to 39 today, patient had very poor oral intake last night. Magdi l stop all insulin, start on low volume D5 normal saline. Continue to monitor clinically. Also waiting on ID recommendation for discharge antibiotics. If patient clears by ID and blood glucose stabilizes possible discharge tomorrow morning with outpatient follow-up. Subjective Date of service: 04/01/21 Principal diagnosis: Ac. hypoxemic resp failure; S/P fall; Leukocytosis; DM II Interval history: Patient seen and examined. Medical records and medication list reviewed. No acute event overnight noted by the RN. Patient states pelvic pain much improved poor appetite, blood glucose was 39 this morning Discussed plan of care at bedside with patient and her granddaughter. Objective - Exam Narrative Exam: GENERAL: well-developed and well-nourished elderly female appears in no distress HEENT: Normocephalic. Atraumatic. No conjunctival congestion or icterus. Patient has moist mucous membranes. NECK: Supple. Trachea midline. CHEST/LUNGS: Clear to auscultated bilaterally, breathing nonlabored. No wheezes crackles or rhonchi. HEART/CARDIOVASCULAR: Regular in rate and rhythm. S1 and S2 positive. ABDOMEN: Abdomen is soft, nontender. Patient has normal bowel sounds. SKIN: There is no rash. Warm and dry. NEURO: No focal motor deficit. Follows command. MUSCULOSKELETAL: No joint effusion EXTRIMITY: No edema, no cyanosis or clubbing. PSYCH: Cooperative. - Constitutional Vitals: Vital Signs - 12hr 04/01/21 04/01/21 04/01/21 00:15 04:50 08:15 Temperature 98.0 F 98.0 F 97.3 F L Pulse Rate 73 74 76 Respiratory 20 18 20 Rate Blood Pressure 141/59 144/52 168/72 O2 Sat by Pulse 99 100 98 Oximetry 04/01/21 10:00 Temperature Pulse Rate 76 Respiratory Rate Blood Pressure O2 Sat by Pulse Oximetry - Labs CBC & Chem 7: 04/02/21 04:19 04/02/21 04:19 Labs: Abnormal lab results 03/27/21 03/31/21 03/31/21 Range/Units 04:44 14:06 16:19 WBC 15.1 H (4.5-11.0) K/mm3 RBC 3.25 L (3.65-5.03) M/mm3 Hgb 8.6 L (10.1-14.3) gm/dl Hct 27.6 L (30.3-42.9) % MCH 27 L (28-32) pg RDW 17.0 H (13.2-15.2) % Plt Count 529 H (140-440) K/mm3 Chloride (98-107) mmol/L BUN (7-17) mg/dL Glucose (65-100) mg/dL POC Glucose 227 H (70-105) mg/dL Calcium (8.4-10.2) mg/dL Serum Total Protein 5.4 L (6.1-8.1) g/dL Albumin 1.8 L (3.8-4.8) g/dL Arxiw-3-Wkhjvxmgc 0.6 H (0.2-0.3) g/dL Rdpqc-9-Fifzgcybp 1.1 H (0.5-0.9) g/dL PEP Interpretation see below H 03/31/21 04/01/21 Range/Units 21:08 04:39 WBC (4.5-11.0) K/mm3 RBC (3.65-5.03) M/mm3 Hgb (10.1-14.3) gm/dl Hct (30.3-42.9) % MCH (28-32) pg RDW (13.2-15.2) % Plt Count (140-440) K/mm3 Chloride 112.8 H (98-107) mmol/L BUN 33 H (7-17) mg/dL Glucose 39 L* (65-100) mg/dL POC Glucose 131 H (70-105) mg/dL Calcium 8.2 L (8.4-10.2) mg/dL Serum Total Protein (6.1-8.1) g/dL Albumin (3.8-4.8) g/dL Bjgmu-3-Hnaijeybk (0.2-0.3) g/dL Bgatl-8-Itesazavg (0.5-0.9) g/dL PEP Interpretation
--- NOTE | 2021-04-01 12:09 | Progress Note ---
Assessment and Plan Patient is 75-year-old female with history of cervical cancer which is now in remission, hypertension and diabetes mellitus type 2 brought to the emergency room via EMS from home for evaluation after a fall that happened in the bathroom. Patient tripped fell and hit her head on the edge of the toilet bowl. Patient denied any loss of consciousness. Patient accompanied by her son who is translating for us. He stated that patient had another fall before that and she didnot reveal that to anyone until the next morning. Since the fall she is complaining of bilateral hip pain right shoulder pain and headache. Patient denied any symptoms prior to the fall. In the ER, EKG showed sinus rhythm with no ST elevation. CT brain, CT cervical spine is unremarkable. Pelvic x-ray is negative for acute finding. Labs reviewed and showed significantly elevated white blood cells of 34,000. Chest x-ray is unremarkable. Urine is negative. CT abdomen and pelvis with IV contrast showed no acute abnormalities. Patient initially given Zosyn empirically. Past medical History: h/o hypertension, diabetes mellitus, history of cervical c ancer now in remission Past surgical History: s/p tubal ligation, possible hysterectomy Social History: Lives with family, denies any smoking, drinking and elicit drug abuse. Family History: Significant for hypertension and heart disease Patient asleep and not in any acute respiratory distress. Patient afebrile with leukocytosis. Patient on room air with O2 saturation 100%. Patient is on Medications S/C lovanox, prednisone, and zosyn. Chest x-ray done on 03/24/21 showed no acute abnormality. ABG on room air. ABG pH 7.364 (7.320-7.450) 03/26/21 18:40 POC ABG pCO2 33.3 mmHg (32.0-48.0) 03/26/21 18:40 POC ABG pO2 62.7 mmHg (83-108) L 03/26/21 18:40 POC ABG HCO3 18.6 03/26/21 18:40 ABG O2 Saturation 91.4 (0-100) 03/26/21 18:40 Family at the bedside. Explained the patient's respiratory status. - Patient Problems (1) Hypoxemia Current Visit: Yes Status: Acute Plan to address problem: Patient's PO2 is 62 on room air. Recommend 2L O2 on nasal cannula. (2) Leukocytosis, unspecified Current Visit: Yes Status: Acute Plan to address problem: Patient is on Zosyn. Mangement as per Infectious diseases. Subjective Date of service: 03/31/21 Principal diagnosis: Ac. hypoxemic resp failure; S/P fall; Leukocytosis; DM II Interval history: Patient is 75-year-old female with history of cervical cancer which is now in remission, hypertension and diabetes mellitus type 2 brought to the emergency room via EMS from home for evaluation after a fall that happened in the bathroom. Patient tripped fell and hit her head on the edge of the toilet bowl. Patient denied any loss of consciousness. Patient accompanied by her son who is translating for us. He stated that patient had another fall before that and she didnot reveal that to anyone until the next morning. Since the fall she is complaining of bilateral hip pain right shoulder pain and headache. Patient denied any symptoms prior to the fall. In the ER, EKG showed sinus rhythm with no ST elevation. CT brain, CT cervical spine is unremarkable. Pelvic x-ray is negative for acute finding. Labs reviewed and showed significantly elevated white blood cells of 34,000. Chest x-ray is unremarkable. Urine is negative. CT abdomen and pelvis with IV contrast showed no acute abnormalities. Patient initially given Zosyn empirically. Past medical History: h/o hypertension, diabetes mellitus, history of cervical cancer now in remission Past surgical History: s/p tubal ligation, possible hysterectomy Social History: Lives with family, denies any smoking, drinking and elicit drug abuse. Family History: Significant for hypertension and heart disease Patient asleep and not in any acute respiratory distress. Patient afebrile with leukocytosis. Patient on room air with O2 saturation 100%. Patient is on Medications S/C lovanox, prednisone, and zosyn. Chest x-ray done on 03/24/21 showed no acute abnormality. ABG on room air. ABG pH 7.364 (7.320-7.450) 03/26/21 18:40 POC ABG pCO2 33.3 mmHg (32.0-48.0) 03/26/21 18:40 POC ABG pO2 62.7 mmHg (83-108) L 03/26/21 18:40 POC ABG HCO3 18.6 03/26/21 18:40 ABG O2 Saturation 91.4 (0-100) 03/26/21 18:40 Objective Vital Signs - 12hr 03/31/21 03/31/21 03/31/21 07:50 08:03 10:49 Temperature 98.0 F 97.5 F L Pulse Rate 77 82 Respiratory 18 19 Rate Blood Pressure 170/68 213/78 Blood Pressure [Left] O2 Sat by Pulse 98 98 98 Oximetry 03/31/21 03/31/21 03/31/21 10:51 10:52 17:47 Temperature Pulse Rate 85 79 Respiratory 20 Rate Blood Pressure 195/78 183/91 Blood Pressure 140/80 [Left] O2 Sat by Pulse 98 Oximetry Constitutional: no acute distress, asleep, other (elderly female without increased respiratory effort at rest. Weak.) Eyes: non-icteric ENT: oropharynx moist Neck: supple, no lymphadenopathy, no JVD Effort: mildly labored Ascultation: Bilateral: diminished breath sounds, rhonchi (scant) Percussion: Bilateral: not dull Cardiovascular: regular rate and rhythm Gastrointestinal: normoactive bowel sounds, soft, non-tender, non-distended Integumentary: normal Extremities: no cyanosis, pink and warm, pulses normal, no ischemia or petechiae Neurologic: non-focal exam (grossly), pupils equal and round, CN II-XII normal Psychiatric: mood appropriate, affect normal CBC and BMP: 03/31/21 14:06 04/01/21 04:39 ABG, PT/INR, D-dimer: ABG ABG pH 7.364 (7.320-7.450) 03/26/21 18:40 POC ABG pCO2 33.3 mmHg (32.0-48.0) 03/26/21 18:40 POC ABG pO2 62.7 mmHg (83-108) L 03/26/21 18:40 POC ABG HCO3 18.6 03/26/21 18:40 ABG O2 Saturation 91.4 (0-100) 03/26/21 18:40 PT/INR, D-dimer PT 15.0 Sec. (12.2-14.9) H 03/24/21 21:46 INR 1.20 (0.87-1.13) H 03/24/21 21:46 D-Dimer 3944.31 ng/mlDDU (0-234) H 03/26/21 18:36 Abnormal lab findings: Abnormal Labs 03/24/21 03/24/21 03/24/21 21:46 21:46 21:46 WBC 31.4 H RBC 2.80 L Hgb 7.8 L Hct 23.6 L MCH RDW 16.1 H Plt Count 548 H Seg Neuts % (Manual) 90.0 H Lymphocytes % (Manual) 4.0 L Seg Neutrophils # Man 28.3 H Monocytes # (Manual) 1.3 H PT 15.0 H INR 1.20 H APTT 38.2 H D-Dimer POC ABG pO2 ABG Hemoglobin ABG Oxyhemoglobin ABG Sodium ABG Potassium ABG Glucose Sodium 126 L Potassium Chloride 90.5 L Carbon Dioxide BUN 34 H Creatinine Glucose 228 H POC Glucose Hemoglobin A1c Calcium 8.1 L Iron TIBC Ferritin AST Alkaline Phosphatase C-Reactive Protein Total Protein Albumin Arterial Blood Glucose Arterial Blood Ionized Calcium 03/24/21 03/25/21 03/25/21 21:46 00:16 08:42 WBC 34.0 H RBC 3.08 L Hgb 8.6 L Hct 25.8 L MCH RDW 16.6 H Plt Count 627 H Seg Neuts % (Manual) 89.0 H Lymphocytes % (Manual) 6.0 L Seg Neutrophils # Man 30.3 H Monocytes # (Manual) 1.4 H PT INR APTT D-Dimer POC ABG pO2 ABG Hemoglobin ABG Oxyhemoglobin ABG Sodium ABG Potassium ABG Glucose Sodium Potassium Chloride Carbon Dioxide BUN Creatinine Glucose POC Glucose 167 H Hemoglobin A1c Calcium Iron TIBC Ferritin AST 46 H Alkaline Phosphatase 235 H C-Reactive Protein Total Protein 5.7 L Albumin 2.4 L Arterial Blood Glucose Arterial Blood Ionized Calcium 03/25/21 03/25/21 03/25/21 11:01 16:28 19:04 WBC RBC Hgb Hct MCH RDW Plt Count Seg Neuts % (Manual) Lymphocytes % (Manual) Seg Neutrophils # Man Monocytes # (Manual) PT INR APTT D-Dimer POC ABG pO2 ABG Hemoglobin ABG Oxyhemoglobin ABG Sodium ABG Potassium ABG Glucose Sodium Potassium Chloride Carbon Dioxide BUN Creatinine Glucose POC Glucose 249 H 227 H Hemoglobin A1c Calcium Iron TIBC Ferritin AST Alkaline Phosphatase C-Reactive Protein 26.30 H Total Protein Albumin Arterial Blood Glucose Arterial Blood Ionized Calcium 03/25/21 03/26/21 03/26/21 20:48 05:22 10:24 WBC 31.0 H RBC 2.91 L Hgb 8.1 L Hct 24.7 L MCH RDW 16.8 H Plt Count 502 H Seg Neuts % (Manual) Lymphocytes % (Manual) Seg Neutrophils # Man Monocytes # (Manual) PT INR APTT D-Dimer POC ABG pO2 ABG Hemoglobin ABG Oxyhemoglobin ABG Sodium ABG Potassium ABG Glucose Sodium 132 L Potassium Chloride Carbon Dioxide BUN 35 H Creatinine 1.6 H Glucose 195 H POC Glucose 217 H Hemoglobin A1c Calcium 7.6 L Iron TIBC Ferritin AST Alkaline Phosphatase 198 H C-Reactive Protein Total Protein 6.1 L Albumin 1.9 L Arterial Blood Glucose Arterial Blood Ionized Calcium 03/26/21 03/26/21 03/26/21 16:15 18:36 18:40 WBC RBC Hgb Hct MCH RDW Plt Count Seg Neuts % (Manual) Lymphocytes % (Manual) Seg Neutrophils # Man Monocytes # (Manual) PT INR APTT D-Dimer 3944.31 H POC ABG pO2 62.7 L ABG Hemoglobin 7.7 L ABG Oxyhemoglobin 90.5 L ABG Sodium 124.6 L ABG Potassium 4.8 H ABG Glucose 275 H Sodium Potassium Chloride Carbon Dioxide BUN Creatinine Glucose POC Glucose 187 H Hemoglobin A1c Calcium Iron TIBC Ferritin AST Alkaline Phosphatase C-Reactive Protein Total Protein Albumin Arterial Blood Glucose 275 H Arterial Blood Ionized Calcium 4.4 L 03/26/21 03/27/21 03/27/21 21:03 04:44 04:44 WBC RBC Hgb Hct MCH RDW Plt Count Seg Neuts % (Manual) Lymphocytes % (Manual) Seg Neutrophils # Man Monocytes # (Manual) PT INR APTT D-Dimer POC ABG pO2 ABG Hemoglobin ABG Oxyhemoglobin ABG Sodium ABG Potassium ABG Glucose Sodium Potassium Chloride Carbon Dioxide BUN Creatinine Glucose POC Glucose 246 H Hemoglobin A1c Calcium Iron 18 L TIBC 107 L Ferritin 1071.0 H AST Alkaline Phosphatase C-Reactive Protein Total Protein Albumin Arterial Blood Glucose Arterial Blood Ionized Calcium 03/27/21 03/27/21 03/27/21 04:44 04:44 07:50 WBC RBC Hgb Hct MCH RDW Plt Count Seg Neuts % (Manual) Lymphocytes % (Manual) Seg Neutrophils # Man Monocytes # (Manual) PT INR APTT D-Dimer POC ABG pO2 ABG Hemoglobin ABG Oxyhemoglobin ABG Sodium ABG Potassium ABG Glucose Sodium 129 L Potassium 5.6 H Chloride 97.4 L Carbon Dioxide 18 L BUN 37 H Creatinine 1.9 H Glucose 260 H POC Glucose 281 H Hemoglobin A1c 9.9 H Calcium 7.9 L Iron TIBC Ferritin AST Alkaline Phosphatase C-Reactive Protein Total Protein Albumin Arterial Blood Glucose Arterial Blood Ionized Calcium 03/27/21 03/27/21 03/27/21 13:17 15:36 17:38 WBC 33.0 H RBC 2.74 L Hgb 7.9 L Hct 23.3 L MCH RDW 17.1 H Plt Count 526 H Seg Neuts % (Manual) Lymphocytes % (Manual) Seg Neutrophils # Man Monocytes # (Manual) PT INR APTT D-Dimer POC ABG pO2 ABG Hemoglobin ABG Oxyhemoglobin ABG Sodium ABG Potassium ABG Glucose Sodium Potassium Chloride Carbon Dioxide BUN Creatinine Glucose POC Glucose 322 H 313 H Hemoglobin A1c Calcium Iron TIBC Ferritin AST Alkaline Phosphatase C-Reactive Protein Total Protein Albumin Arterial Blood Glucose Arterial Blood Ionized Calcium 03/27/21 03/27/21 03/27/21 17:38 17:38 21:33 WBC RBC Hgb Hct MCH RDW Plt Count Seg Neuts % (Manual) Lymphocytes % (Manual) Seg Neutrophils # Man Monocytes # (Manual) PT INR APTT D-Dimer POC ABG pO2 ABG Hemoglobin ABG Oxyhemoglobin ABG Sodium ABG Potassium ABG Glucose Sodium 128 L Potassium 5.1 H Chloride 97.3 L Carbon Dioxide 15 L BUN 48 H Creatinine 2.1 H Glucose 316 H POC Glucose 335 H Hemoglobin A1c Calcium 8.0 L Iron TIBC Ferritin AST Alkaline Phosphatase C-Reactive Protein 20.60 H Total Protein Albumin Arterial Blood Glucose Arterial Blood Ionized Calcium 03/28/21 03/28/21 03/28/21 04:27 04:27 08:46 WBC 28.5 H RBC 2.84 L Hgb 7.4 L Hct 23.9 L MCH 26 L RDW 17.0 H Plt Count 573 H Seg Neuts % (Manual) 92.0 H Lymphocytes % (Manual) 6.0 L Seg Neutrophils # Man 26.2 H Monocytes # (Manual) PT INR APTT D-Dimer POC ABG pO2 ABG Hemoglobin ABG Oxyhemoglobin ABG Sodium ABG Potassium ABG Glucose Sodium 134 L Potassium Chloride Carbon Dioxide 19 L BUN 50 H Creatinine 1.9 H Glucose 287 H POC Glucose 337 H Hemoglobin A1c Calcium 7.8 L Iron TIBC Ferritin AST Alkaline Phosphatase C-Reactive Protein Total Protein Albumin Arterial Blood Glucose Arterial Blood Ionized Calcium 03/28/21 03/28/21 03/29/21 11:28 16:09 00:12 WBC RBC Hgb Hct MCH RDW Plt Count Seg Neuts % (Manual) Lymphocytes % (Manual) Seg Neutrophils # Man Monocytes # (Manual) PT INR APTT D-Dimer POC ABG pO2 ABG Hemoglobin ABG Oxyhemoglobin ABG Sodium ABG Potassium ABG Glucose Sodium Potassium Chloride Carbon Dioxide BUN Creatinine Glucose POC Glucose 367 H 348 H 372 H Hemoglobin A1c Calcium Iron TIBC Ferritin AST Alkaline Phosphatase C-Reactive Protein Total Protein Albumin Arterial Blood Glucose Arterial Blood Ionized Calcium 03/29/21 03/29/21 03/29/21 05:09 07:58 11:16 WBC RBC Hgb Hct MCH RDW Plt Count Seg Neuts % (Manual) Lymphocytes % (Manual) Seg Neutrophils # Man Monocytes # (Manual) PT INR APTT D-Dimer POC ABG pO2 ABG Hemoglobin ABG Oxyhemoglobin ABG Sodium ABG Potassium ABG Glucose Sodium 135 L Potassium Chloride Carbon Dioxide 20 L BUN 49 H Creatinine 1.7 H Glucose 316 H POC Glucose 294 H 249 H Hemoglobin A1c Calcium 7.8 L Iron TIBC Ferritin AST Alkaline Phosphatase C-Reactive Protein Total Protein Albumin Arterial Blood Glucose Arterial Blood Ionized Calcium 03/29/21 03/30/21 03/30/21 15:54 05:38 05:38 WBC 22.6 H RBC 3.29 L Hgb 9.1 L Hct 28.1 L MCH RDW 17.4 H Plt Count 654 H Seg Neuts % (Manual) 92.0 H Lymphocytes % (Manual) 7.0 L Seg Neutrophils # Man 20.8 H Monocytes # (Manual) PT INR APTT D-Dimer POC ABG pO2 ABG Hemoglobin ABG Oxyhemoglobin ABG Sodium ABG Potassium ABG Glucose Sodium Potassium Chloride Carbon Dioxide 21 L BUN 41 H Creatinine 1.5 H Glucose 128 H POC Glucose 150 H Hemoglobin A1c Calcium 8.2 L Iron TIBC Ferritin AST Alkaline Phosphatase C-Reactive Protein Total Protein Albumin Arterial Blood Glucose Arterial Blood Ionized Calcium 03/30/21 03/30/21 03/30/21 07:44 10:52 16:45 WBC RBC Hgb Hct MCH RDW Plt Count Seg Neuts % (Manual) Lymphocytes % (Manual) Seg Neutrophils # Man Monocytes # (Manual) PT INR APTT D-Dimer POC ABG pO2 ABG Hemoglobin ABG Oxyhemoglobin ABG Sodium ABG Potassium ABG Glucose Sodium Potassium Chloride Carbon Dioxide BUN Creatinine Glucose POC Glucose 156 H 177 H 118 H Hemoglobin A1c Calcium Iron TIBC Ferritin AST Alkaline Phosphatase C-Reactive Protein Total Protein Albumin Arterial Blood Glucose Arterial Blood Ionized Calcium 03/31/21 03/31/21 03/31/21 04:29 07:17 11:07 WBC RBC Hgb Hct MCH RDW Plt Count Seg Neuts % (Manual) Lymphocytes % (Manual) Seg Neutrophils # Man Monocytes # (Manual) PT INR APTT D-Dimer POC ABG pO2 ABG Hemoglobin ABG Oxyhemoglobin ABG Sodium ABG Potassium ABG Glucose Sodium Potassium Chloride 109.9 H Carbon Dioxide BUN 35 H Creatinine Glucose POC Glucose 113 H 158 H Hemoglobin A1c Calcium Iron TIBC Ferritin AST Alkaline Phosphatase C-Reactive Protein 4.10 H Total Protein Albumin Arterial Blood Glucose Arterial Blood Ionized Calcium 03/31/21 14:06 WBC 15.1 H RBC 3.25 L Hgb 8.6 L Hct 27.6 L MCH 27 L RDW 17.0 H Plt Count 529 H Seg Neuts % (Manual) Lymphocytes % (Manual) Seg Neutrophils # Man Monocytes # (Manual) PT INR APTT D-Dimer POC ABG pO2 ABG Hemoglobin ABG Oxyhemoglobin ABG Sodium ABG Potassium ABG Glucose Sodium Potassium Chloride Carbon Dioxide BUN Creatinine Glucose POC Glucose Hemoglobin A1c Calcium Iron TIBC Ferritin AST Alkaline Phosphatase C-Reactive Protein Total Protein Albumin Arterial Blood Glucose Arterial Blood Ionized Calcium Allied health notes reviewed: nursing
--- NOTE | 2021-04-01 15:24 | Progress Note ---
Assessment and Plan Cultures: Blood culture 03/25/2021 no growth today MRSA PCR negative Assessment: 75-year-old female with history of hypertension, diabetes, admitted on 03/24/2021 secondary to a fall in the bathroom at home pain for several months: #Leukocytosis and thrombocytosis: better 34K--->28K. Of unclear etiology. Reactive secondary to Pelvic trauma/infection?. Patient complaining of pelvic pain for several months. CT abdomen shows fluid tracks along the right medial acetabulum and thickening of the sacrospinosus ligament. Abdominal CT otherwise unremarkable. Patient denies any weight loss. Patient is not the best historian. Elevated procalcitonin in the setting of acute kidney injury. #Bilateral ischial pain R>L: On exam severe tenderness noted mild induration on right ischeal area ? Abscess ? Hematoma ?osteo. Patient reports pain has been there for several weeks and radiates to the right foot. CRP 26--->20. Pelvic MRI with ischial osteomyeltiis?, near completion thorough for the right obturator intrnist muscle with hematoma in right pitifomis. Also right ischiofemoral impingement with complete tear quadratus femoralitis. Lumbar MRI with severe DJD. #Anemia #Elevated LFTs: Mild, AST 46. Unclear etiology, CT without cholecystitis. #GREGOR: Creatinine up Recommendations: -BMBx, BBx performed yesterday, awaiting pathology -Initial gram stain negative, no PMNs. -CRP strongly improved. -Less likely to be an acute osteomyelitis at present. Await pathology -If discharging plan on PO Abx until pathology available. Can do keflex 500mg q6h for 7 more days. -Heme-onc on board D/W Dr. Krause. Trenton Alegre MD [facility] ([facility] O: [phone] F: [phone] Subjective Date of service: 04/01/21 Principal diagnosis: Ac. hypoxemic resp failure; S/P fall; Leukocytosis; DM II Interval history: Afebrile, no acute change. Objective - Exam Narrative Exam: General appearance: Alert in no acute distress Eyes: anicteric sclerae, moist conjunctivae; no lid-lag HENT: Normocephalic, Atraumatic; normal external ears, nares open, oropharynx limited Lungs: CTA CV: RRR no murmur Abdomen: Soft, non-tender; no masses or hepatosplenomegaly Extremities: no edema, no cyanosis, bilateral ischial area tenderness Skin: Ischial tenderness improved Psych: Not agitated Neuro: Not agitated - Constitutional Vitals: Vital Signs Temp Pulse Resp BP Pulse Ox 97.3 F L 76 20 168/72 98 04/01/21 08:15 04/01/21 10:00 04/01/21 08:15 04/01/21 08:15 04/01/21 08:15 Temperature -Last 24 Hours Temperature 97.3 F Temperature 98.0 F Temperature 98.0 F Temperature 98.4 F - Labs CBC & Chem 7: 03/31/21 14:06 04/01/21 04:39 Labs: Abnormal lab results 03/27/21 03/31/21 03/31/21 Range/Units 04:44 16:19 21:08 Chloride (98-107) mmol/L BUN (7-17) mg/dL Glucose (65-100) mg/dL POC Glucose 227 H 131 H (70-105) mg/dL Calcium (8.4-10.2) mg/dL Serum Total Protein 5.4 L (6.1-8.1) g/dL Albumin 1.8 L (3.8-4.8) g/dL Lezkd-8-Txchqdubt 0.6 H (0.2-0.3) g/dL Tfnfe-7-Bfjonbwzx 1.1 H (0.5-0.9) g/dL PEP Interpretation see below H 04/01/21 Range/Units 04:39 Chloride 112.8 H (98-107) mmol/L BUN 33 H (7-17) mg/dL Glucose 39 L* (65-100) mg/dL POC Glucose (70-105) mg/dL Calcium 8.2 L (8.4-10.2) mg/dL Serum Total Protein (6.1-8.1) g/dL Albumin (3.8-4.8) g/dL Vbijp-2-Avtaxbjbp (0.2-0.3) g/dL Halbf-4-Oqudgzdwz (0.5-0.9) g/dL PEP Interpretation
[2021-04-01] MEDS: ENOXAPARIN 30 MG/0.3 ML INJ SUB-Q SCH (21:33)
[2021-04-01] MEDS: SODIUM CHLORIDE 0.9% 1000 ML 1,000 ML IV SCH (23:03)
[2021-04-02] MEDS: PIPERACIL-TAZO 2.25 GM/50 ML 2.25 GM/50 ML BAG IV SCH ×2 (05:06→15:49)
[2021-04-02 06:05] LABS: Basophils % (Auto) 0.1 % (0.0-1.8); Eosinophils % (Auto) 0.1 % (0.0-4.3); Hematocrit 23.4 % (30.3-42.9); Hemoglobin 7.8 gm/dl (10.1-14.3); Lymphocytes % (Auto) 6.2 % (13.4-35.0); Mean Corpuscular HGB Conc 34 % (30-34); Mean Corpuscular Volume 85 fl (79-97); Monocytes # (Auto) 0.7 K/mm3 (0.0-0.8); Monocytes % (Auto) 4.7 % (0.0-7.3); Platelet Count 479 K/mm3 (140-440); Red Blood Count 2.74 M/mm3 (3.65-5.03); Red Cell Distribution Width 17.3 % (13.2-15.2)
[2021-04-02 06:28] LABS: Calcium 8.2 mg/dL (8.4-10.2)
[2021-04-02] MEDS: oxyCODONE ER 20 MG TAB PO SCH (09:10)
[2021-04-02] MEDS: SODIUM BICARBONATE 650 MG TAB PO SCH (09:10)
[2021-04-02] MEDS: hydrALAZINE 25 MG TAB PO SCH (09:11)
[2021-04-02] MEDS: predniSONE 20 MG TAB PO SCH (09:11)
[2021-04-02] MEDS: SODIUM CHLORIDE 0.9% 1000 ML 1,000 ML IV SCH (09:11)
[2021-04-02] MEDS: amLODIPine 10 MG TAB PO SCH (09:11)
[2021-04-02] MEDS: INSULIN REGULAR, HUMAN 100 UNITS/1 ML SUB-Q SCH ×2 (09:13→13:09)
[2021-04-02] MEDS ORDERED: guaiFENesin DM 200/20 MG ORAL LIQD 10 ML PO PRN (09:21)
--- NOTE | 2021-04-02 09:21 | Progress Note ---
Assessment and Plan Patient is 75-year-old female with history of cervical cancer which is now in remission, hypertension and diabetes mellitus type 2 brought to the emergency room via EMS from home for evaluation after a fall that happened in the bathroom. Patient tripped fell and hit her head on the edge of the toilet bowl. Patient denied any loss of consciousness. Patient accompanied by her son who is translating for us. He stated that patient had another fall before that and she didnot reveal that to anyone until the next morning. Since the fall she is complaining of bilateral hip pain right shoulder pain and headache. Patient denied any symptoms prior to the fall. In the ER, EKG showed sinus rhythm with no ST elevation. CT brain, CT cervical spine is unremarkable. Pelvic x-ray is negative for acute finding. Labs reviewed and showed significantly elevated white blood cells of 34,000. Chest x-ray is unremarkable. Urine is negative. CT abdomen and pelvis with IV contrast showed no acute abnormalities. Patient initially given Zosyn empirically. Past medical History: h/o hypertension, diabetes mellitus, history of cervical c ancer now in remission Past surgical History: s/p tubal ligation, possible hysterectomy Social History: Lives with family, denies any smoking, drinking and elicit drug abuse. Family History: Significant for hypertension and heart disease Patient awake and resting on 2 litres O2. O2 saturation 100%. No acute respiratory distress. Complaining some cough Patient afebrile with leukocytosis. Patient is on Medications S/C lovanox, prednisone, and zosyn. Chest x-ray done on 03/24/21 showed no acute abnormality. ABG on room air. ABG pH 7.364 (7.320-7.450) 03/26/21 18:40 POC ABG pCO2 33.3 mmHg (32.0-48.0) 03/26/21 18:40 POC ABG pO2 62.7 mmHg (83-108) L 03/26/21 18:40 POC ABG HCO3 18.6 03/26/21 18:40 ABG O2 Saturation 91.4 (0-100) 03/26/21 18:40 - Patient Problems (1) Hypoxemia Current Visit: Yes Status: Acute Plan to address problem: Patient's PO2 is 62 on room air. O2 2L O2 via nasal cannula. (2) Leukocytosis, unspecified Current Visit: Yes Status: Acute Plan to address problem: Patient is on Zosyn. Mangement as per Infectious diseases. Subjective Date of service: 04/01/21 Principal diagnosis: Ac. hypoxemic resp failure; S/P fall; Leukocytosis; DM II Interval history: Patient is 75-year-old female with history of cervical cancer which is now in remission, hypertension and diabetes mellitus type 2 brought to the emergency room via EMS from home for evaluation after a fall that happened in the bath room. Patient tripped fell and hit her head on the edge of the toilet bowl. Patient denied any loss of consciousness. Patient accompanied by her son who is translating for us. He stated that patient had another fall before that and she didnot reveal that to anyone until the next morning. Since the fall she is complaining of bilateral hip pain right shoulder pain and headache. Patient denied any symptoms prior to the fall. In the ER, EKG showed sinus rhythm with no ST elevation. CT brain, CT cervical spine is unremarkable. Pelvic x-ray is negative for acute finding. Labs reviewed and showed significantly elevated white blood cells of 34,000. Chest x-ray is unremarkable. Urine is negative. CT abdomen and pelvis with IV contrast showed no acute abnormalities. Patient initially given Zosyn empirically. Past medical History: h/o hypertension, diabetes mellitus, history of cervical cancer now in remission Past surgical History: s/p tubal ligation, possible hysterectomy Social History: Lives with family, denies any smoking, drinking and elicit drug abuse. Family History: Significant for hypertension and heart disease Patient awake and resting on 2 litres O2. O2 saturation 100%. No acute respiratory distress. Complaining some cough Patient afebrile with leukocytosis. Patient is on Medications S/C lovanox, prednisone, and zosyn. Chest x-ray done on 03/24/21 showed no acute abnormality. ABG on room air. ABG pH 7.364 (7.320-7.450) 03/26/21 18:40 POC ABG pCO2 33.3 mmHg (32.0-48.0) 03/26/21 18:40 POC ABG pO2 62.7 mmHg (83-108) L 03/26/21 18:40 POC ABG HCO3 18.6 03/26/21 18:40 ABG O2 Saturation 91.4 (0-100) 03/26/21 18:40 Objective Vital Signs - 12hr 04/01/21 04/01/21 04/01/21 04:50 08:15 10:00 Temperature 98.0 F 97.3 F L Pulse Rate 74 76 76 Respiratory 18 20 Rate Blood Pressure 144/52 168/72 O2 Sat by Pulse 100 98 Oximetry Constitutional: no acute distress, alert, other (Weak.) Eyes: non-icteric ENT: oropharynx moist Neck: supple, no lymphadenopathy, no JVD Effort: mildly labored Ascultation: Bilateral: diminished breath sounds, rhonchi (scant) Percussion: Bilateral: not dull Cardiovascular: regular rate and rhythm Gastrointestinal: normoactive bowel sounds, soft, non-tender, non-distended Integumentary: normal Extremities: no cyanosis, pink and warm, pulses normal, no ischemia or petechiae Neurologic: non-focal exam (grossly), pupils equal and round, CN II-XII normal Psychiatric: mood appropriate, affect normal CBC and BMP: 04/02/21 04:19 04/02/21 04:19 ABG, PT/INR, D-dimer: ABG ABG pH 7.364 (7.320-7.450) 03/26/21 18:40 POC ABG pCO2 33.3 mmHg (32.0-48.0) 03/26/21 18:40 POC ABG pO2 62.7 mmHg (83-108) L 03/26/21 18:40 POC ABG HCO3 18.6 03/26/21 18:40 ABG O2 Saturation 91.4 (0-100) 03/26/21 18:40 PT/INR, D-dimer PT 15.0 Sec. (12.2-14.9) H 03/24/21 21:46 INR 1.20 (0.87-1.13) H 03/24/21 21:46 D-Dimer 3944.31 ng/mlDDU (0-234) H 03/26/21 18:36 Abnormal lab findings: Abnormal Labs 03/24/21 03/24/21 03/24/21 21:46 21:46 21:46 WBC 31.4 H RBC 2.80 L Hgb 7.8 L Hct 23.6 L MCH RDW 16.1 H Plt Count 548 H Seg Neuts % (Manual) 90.0 H Lymphocytes % (Manual) 4.0 L Seg Neutrophils # Man 28.3 H Monocytes # (Manual) 1.3 H PT 15.0 H INR 1.20 H APTT 38.2 H D-Dimer POC ABG pO2 ABG Hemoglobin ABG Oxyhemoglobin ABG Sodium ABG Potassium ABG Glucose Sodium 126 L Potassium Chloride 90.5 L Carbon Dioxide BUN 34 H Creatinine Glucose 228 H POC Glucose Hemoglobin A1c Calcium 8.1 L Iron TIBC Ferritin AST Alkaline Phosphatase C-Reactive Protein Serum Total Protein Total Protein Albumin Ptreh-1-Jkwyfwzik Sqgda-2-Lwdkjkkip PEP Interpretation Arterial Blood Glucose Arterial Blood Ionized Calcium 03/24/21 03/25/21 03/25/21 21:46 00:16 08:42 WBC 34.0 H RBC 3.08 L Hgb 8.6 L Hct 25.8 L MCH RDW 16.6 H Plt Count 627 H Seg Neuts % (Manual) 89.0 H Lymphocytes % (Manual) 6.0 L Seg Neutrophils # Man 30.3 H Monocytes # (Manual) 1.4 H PT INR APTT D-Dimer POC ABG pO2 ABG Hemoglobin ABG Oxyhemoglobin ABG Sodium ABG Potassium ABG Glucose Sodium Potassium Chloride Carbon Dioxide BUN Creatinine Glucose POC Glucose 167 H Hemoglobin A1c Calcium Iron TIBC Ferritin AST 46 H Alkaline Phosphatase 235 H C-Reactive Protein Serum Total Protein Total Protein 5.7 L Albumin 2.4 L Wwfiq-6-Qufrkosnm Cihez-1-Orffhgrkm PEP Interpretation Arterial Blood Glucose Arterial Blood Ionized Calcium 03/25/21 03/25/21 03/25/21 11:01 16:28 19:04 WBC RBC Hgb Hct MCH RDW Plt Count Seg Neuts % (Manual) Lymphocytes % (Manual) Seg Neutrophils # Man Monocytes # (Manual) PT INR APTT D-Dimer POC ABG pO2 ABG Hemoglobin ABG Oxyhemoglobin ABG Sodium ABG Potassium ABG Glucose Sodium Potassium Chloride Carbon Dioxide BUN Creatinine Glucose POC Glucose 249 H 227 H Hemoglobin A1c Calcium Iron TIBC Ferritin AST Alkaline Phosphatase C-Reactive Protein 26.30 H Serum Total Protein Total Protein Albumin Wjkxv-5-Wjepiwuds Ulxub-5-Vqmbfksvv PEP Interpretation Arterial Blood Glucose Arterial Blood Ionized Calcium 03/25/21 03/26/21 03/26/21 20:48 05:22 10:24 WBC 31.0 H RBC 2.91 L Hgb 8.1 L Hct 24.7 L MCH RDW 16.8 H Plt Count 502 H Seg Neuts % (Manual) Lymphocytes % (Manual) Seg Neutrophils # Man Monocytes # (Manual) PT INR APTT D-Dimer POC ABG pO2 ABG Hemoglobin ABG Oxyhemoglobin ABG Sodium ABG Potassium ABG Glucose Sodium 132 L Potassium Chloride Carbon Dioxide BUN 35 H Creatinine 1.6 H Glucose 195 H POC Glucose 217 H Hemoglobin A1c Calcium 7.6 L Iron TIBC Ferritin AST Alkaline Phosphatase 198 H C-Reactive Protein Serum Total Protein Total Protein 6.1 L Albumin 1.9 L Rstcc-0-Ymsdjshqb Dwnhh-7-Xseswksmu PEP Interpretation Arterial Blood Glucose Arterial Blood Ionized Calcium 03/26/21 03/26/21 03/26/21 16:15 18:36 18:40 WBC RBC Hgb Hct MCH RDW Plt Count Seg Neuts % (Manual) Lymphocytes % (Manual) Seg Neutrophils # Man Monocytes # (Manual) PT INR APTT D-Dimer 3944.31 H POC ABG pO2 62.7 L ABG Hemoglobin 7.7 L ABG Oxyhemoglobin 90.5 L ABG Sodium 124.6 L ABG Potassium 4.8 H ABG Glucose 275 H Sodium Potassium Chloride Carbon Dioxide BUN Creatinine Glucose POC Glucose 187 H Hemoglobin A1c Calcium Iron TIBC Ferritin AST Alkaline Phosphatase C-Reactive Protein Serum Total Protein Total Protein Albumin Hdxir-6-Gouypiifl Geefz-6-Vwgkytdol PEP Interpretation Arterial Blood Glucose 275 H Arterial Blood Ionized Calcium 4.4 L 03/26/21 03/27/21 03/27/21 21:03 04:44 04:44 WBC RBC Hgb Hct MCH RDW Plt Count Seg Neuts % (Manual) Lymphocytes % (Manual) Seg Neutrophils # Man Monocytes # (Manual) PT INR APTT D-Dimer POC ABG pO2 ABG Hemoglobin ABG Oxyhemoglobin ABG Sodium ABG Potassium ABG Glucose Sodium Potassium Chloride Carbon Dioxide BUN Creatinine Glucose POC Glucose 246 H Hemoglobin A1c Calcium Iron 18 L TIBC 107 L Ferritin 1071.0 H AST Alkaline Phosphatase C-Reactive Protein Serum Total Protein Total Protein Albumin Pwmhp-1-Ofkwkieri Xgaaf-5-Dltwglnxl PEP Interpretation Arterial Blood Glucose Arterial Blood Ionized Calcium 03/27/21 03/27/21 03/27/21 04:44 04:44 04:44 WBC RBC Hgb Hct MCH RDW Plt Count Seg Neuts % (Manual) Lymphocytes % (Manual) Seg Neutrophils # Man Monocytes # (Manual) PT INR APTT D-Dimer POC ABG pO2 ABG Hemoglobin ABG Oxyhemoglobin ABG Sodium ABG Potassium ABG Glucose Sodium 129 L Potassium 5.6 H Chloride 97.4 L Carbon Dioxide 18 L BUN 37 H Creatinine 1.9 H Glucose 260 H POC Glucose Hemoglobin A1c 9.9 H Calcium 7.9 L Iron TIBC Ferritin AST Alkaline Phosphatase C-Reactive Protein Serum Total Protein 5.4 L Total Protein Albumin 1.8 L Icnyr-2-Sfwcvdnlb 0.6 H Dqrjx-9-Xlwqyxcfo 1.1 H PEP Interpretation see below H Arterial Blood Glucose Arterial Blood Ionized Calcium 03/27/21 03/27/21 03/27/21 07:50 13:17 15:36 WBC RBC Hgb Hct MCH RDW Plt Count Seg Neuts % (Manual) Lymphocytes % (Manual) Seg Neutrophils # Man Monocytes # (Manual) PT INR APTT D-Dimer POC ABG pO2 ABG Hemoglobin ABG Oxyhemoglobin ABG Sodium ABG Potassium ABG Glucose Sodium Potassium Chloride Carbon Dioxide BUN Creatinine Glucose POC Glucose 281 H 322 H 313 H Hemoglobin A1c Calcium Iron TIBC Ferritin AST Alkaline Phosphatase C-Reactive Protein Serum Total Protein Total Protein Albumin Ilbir-3-Zdbjjplen Xibbv-4-Kwfaodukq PEP Interpretation Arterial Blood Glucose Arterial Blood Ionized Calcium 03/27/21 03/27/21 03/27/21 17:38 17:38 17:38 WBC 33.0 H RBC 2.74 L Hgb 7.9 L Hct 23.3 L MCH RDW 17.1 H Plt Count 526 H Seg Neuts % (Manual) Lymphocytes % (Manual) Seg Neutrophils # Man Monocytes # (Manual) PT INR APTT D-Dimer POC ABG pO2 ABG Hemoglobin ABG Oxyhemoglobin ABG Sodium ABG Potassium ABG Glucose Sodium 128 L Potassium 5.1 H Chloride 97.3 L Carbon Dioxide 15 L BUN 48 H Creatinine 2.1 H Glucose 316 H POC Glucose Hemoglobin A1c Calcium 8.0 L Iron TIBC Ferritin AST Alkaline Phosphatase C-Reactive Protein 20.60 H Serum Total Protein Total Protein Albumin Pcalv-0-Mhdziyxkm Ibeui-4-Dyoutvffj PEP Interpretation Arterial Blood Glucose Arterial Blood Ionized Calcium 03/27/21 03/28/21 03/28/21 21:33 04:27 04:27 WBC 28.5 H RBC 2.84 L Hgb 7.4 L Hct 23.9 L MCH 26 L RDW 17.0 H Plt Count 573 H Seg Neuts % (Manual) 92.0 H Lymphocytes % (Manual) 6.0 L Seg Neutrophils # Man 26.2 H Monocytes # (Manual) PT INR APTT D-Dimer POC ABG pO2 ABG Hemoglobin ABG Oxyhemoglobin ABG Sodium ABG Potassium ABG Glucose Sodium 134 L Potassium Chloride Carbon Dioxide 19 L BUN 50 H Creatinine 1.9 H Glucose 287 H POC Glucose 335 H Hemoglobin A1c Calcium 7.8 L Iron TIBC Ferritin AST Alkaline Phosphatase C-Reactive Protein Serum Total Protein Total Protein Albumin Tzhsl-1-Wcswgyffb Zbnar-7-Dmtchoswi PEP Interpretation Arterial Blood Glucose Arterial Blood Ionized Calcium 03/28/21 03/28/21 03/28/21 08:46 11:28 16:09 WBC RBC Hgb Hct MCH RDW Plt Count Seg Neuts % (Manual) Lymphocytes % (Manual) Seg Neutrophils # Man Monocytes # (Manual) PT INR APTT D-Dimer POC ABG pO2 ABG Hemoglobin ABG Oxyhemoglobin ABG Sodium ABG Potassium ABG Glucose Sodium Potassium Chloride Carbon Dioxide BUN Creatinine Glucose POC Glucose 337 H 367 H 348 H Hemoglobin A1c Calcium Iron TIBC Ferritin AST Alkaline Phosphatase C-Reactive Protein Serum Total Protein Total Protein Albumin Pjxzk-9-Nfdbndile Kigli-8-Bcibuitet PEP Interpretation Arterial Blood Glucose Arterial Blood Ionized Calcium 03/29/21 03/29/21 03/29/21 00:12 05:09 07:58 WBC RBC Hgb Hct MCH RDW Plt Count Seg Neuts % (Manual) Lymphocytes % (Manual) Seg Neutrophils # Man Monocytes # (Manual) PT INR APTT D-Dimer POC ABG pO2 ABG Hemoglobin ABG Oxyhemoglobin ABG Sodium ABG Potassium ABG Glucose Sodium 135 L Potassium Chloride Carbon Dioxide 20 L BUN 49 H Creatinine 1.7 H Glucose 316 H POC Glucose 372 H 294 H Hemoglobin A1c Calcium 7.8 L Iron TIBC Ferritin AST Alkaline Phosphatase C-Reactive Protein Serum Total Protein Total Protein Albumin Vjtso-7-Zyodxlomr Apiqi-9-Plcrabfla PEP Interpretation Arterial Blood Glucose Arterial Blood Ionized Calcium 03/29/21 03/29/21 03/30/21 11:16 15:54 05:38 WBC RBC Hgb Hct MCH RDW Plt Count Seg Neuts % (Manual) Lymphocytes % (Manual) Seg Neutrophils # Man Monocytes # (Manual) PT INR APTT D-Dimer POC ABG pO2 ABG Hemoglobin ABG Oxyhemoglobin ABG Sodium ABG Potassium ABG Glucose Sodium Potassium Chloride Carbon Dioxide 21 L BUN 41 H Creatinine 1.5 H Glucose 128 H POC Glucose 249 H 150 H Hemoglobin A1c Calcium 8.2 L Iron TIBC Ferritin AST Alkaline Phosphatase C-Reactive Protein Serum Total Protein Total Protein Albumin Dmosw-3-Ahzwqffde Wjfwb-7-Mxqajqfdl PEP Interpretation Arterial Blood Glucose Arterial Blood Ionized Calcium 03/30/21 03/30/21 03/30/21 05:38 07:44 10:52 WBC 22.6 H RBC 3.29 L Hgb 9.1 L Hct 28.1 L MCH RDW 17.4 H Plt Count 654 H Seg Neuts % (Manual) 92.0 H Lymphocytes % (Manual) 7.0 L Seg Neutrophils # Man 20.8 H Monocytes # (Manual) PT INR APTT D-Dimer POC ABG pO2 ABG Hemoglobin ABG Oxyhemoglobin ABG Sodium ABG Potassium ABG Glucose Sodium Potassium Chloride Carbon Dioxide BUN Creatinine Glucose POC Glucose 156 H 177 H Hemoglobin A1c Calcium Iron TIBC Ferritin AST Alkaline Phosphatase C-Reactive Protein Serum Total Protein Total Protein Albumin Thgjh-2-Itszzkikx Pwyzs-8-Omoxxxjln PEP Interpretation Arterial Blood Glucose Arterial Blood Ionized Calcium 03/30/21 03/31/21 03/31/21 16:45 04:29 07:17 WBC RBC Hgb Hct MCH RDW Plt Count Seg Neuts % (Manual) Lymphocytes % (Manual) Seg Neutrophils # Man Monocytes # (Manual) PT INR APTT D-Dimer POC ABG pO2 ABG Hemoglobin ABG Oxyhemoglobin ABG Sodium ABG Potassium ABG Glucose Sodium Potassium Chloride 109.9 H Carbon Dioxide BUN 35 H Creatinine Glucose POC Glucose 118 H 113 H Hemoglobin A1c Calcium Iron TIBC Ferritin AST Alkaline Phosphatase C-Reactive Protein 4.10 H Serum Total Protein Total Protein Albumin Obpir-4-Vhrwotnxv Aykze-1-Qdleuphlz PEP Interpretation Arterial Blood Glucose Arterial Blood Ionized Calcium 03/31/21 03/31/21 03/31/21 11:07 14:06 16:19 WBC 15.1 H RBC 3.25 L Hgb 8.6 L Hct 27.6 L MCH 27 L RDW 17.0 H Plt Count 529 H Seg Neuts % (Manual) Lymphocytes % (Manual) Seg Neutrophils # Man Monocytes # (Manual) PT INR APTT D-Dimer POC ABG pO2 ABG Hemoglobin ABG Oxyhemoglobin ABG Sodium ABG Potassium ABG Glucose Sodium Potassium Chloride Carbon Dioxide BUN Creatinine Glucose POC Glucose 158 H 227 H Hemoglobin A1c Calcium Iron TIBC Ferritin AST Alkaline Phosphatase C-Reactive Protein Serum Total Protein Total Protein Albumin Erdfu-5-Zxpvoopap Cyivz-2-Hzigbndti PEP Interpretation Arterial Blood Glucose Arterial Blood Ionized Calcium 03/31/21 04/01/21 21:08 04:39 WBC RBC Hgb Hct MCH RDW Plt Count Seg Neuts % (Manual) Lymphocytes % (Manual) Seg Neutrophils # Man Monocytes # (Manual) PT INR APTT D-Dimer POC ABG pO2 ABG Hemoglobin ABG Oxyhemoglobin ABG Sodium ABG Potassium ABG Glucose Sodium Potassium Chloride 112.8 H Carbon Dioxide BUN 33 H Creatinine Glucose 39 L* POC Glucose 131 H Hemoglobin A1c Calcium 8.2 L Iron TIBC Ferritin AST Alkaline Phosphatase C-Reactive Protein Serum Total Protein Total Protein Albumin Woaqf-2-Sonxxavvv Cdbes-8-Alcqmsmry PEP Interpretation Arterial Blood Glucose Arterial Blood Ionized Calcium Allied health notes reviewed: nursing
--- NOTE | 2021-04-02 09:23 | Progress Note ---
Assessment and Plan 1. Acute kidney injury: Vasomotor GREGOR superimposed on CKD in the setting of volume depletion / hypotension. Patient is also suspected of Myeloproliferative disorder. CT abdomen negative for hydro. Monitor renal function. Creatinine level is better. Avoid nephrotoxic agents. Meds dosage based on GFR. 2. FEN: Hyperkalemia, improved, monitor. Metabolic acidosis, iimproved, monitor. Hyponatremia, improved, monitor. Monitor volume status and lytes. 3. Status post fall: CT head without any acute process. Monitor. 4. Severe pelvic pain: Likely 2/[address] abdomen pelvis x-ray soft tissue injury without any sign of fracture. Pain management. 5. Leukocytosis: Followed by ID. Heme-onc on board for possible myeloproliferative disorder. 6. Hypotensive episode: Resolved following IV fluid bolus. 7. Normocytic anemia with thrombocytosis: Monitor. Heme-onc on board. 8. Encephalopathy: Metabolic. Improved. Subjective: Patient was not examined today. However the examination findings from other providers noted. The current and previous medical records are reviewed in detail as are laboratory and imaging data reviewed when appropriate. Medications being given are also reviewed. In addition the case has been discussed with the attending hospitalist and the nurse when needed. New renal recommendations as above. Subjective Date of service: 04/02/21 Principal diagnosis: Ac. hypoxemic resp failure; S/P fall; Leukocytosis; DM II Objective - Vital Signs Vital signs: Vital Signs - 12hr 04/01/21 04/02/21 04/02/21 22:28 03:56 07:29 Temperature 97.9 F 98.5 F 97.7 F Pulse Rate 83 77 78 Respiratory 17 17 18 Rate Blood Pressure 161/71 168/59 178/72 O2 Sat by Pulse 99 98 96 Oximetry - Lab 04/02/21 04:19 04/02/21 04:19 Most recent lab results ABG pH 7.364 (7.320-7.450) 03/26/21 18:40 ABG O2 Saturation 91.4 (0-100) 03/26/21 18:40 Calcium 8.2 mg/dL (8.4-10.2) L 04/02/21 04:19 Medications & Allergies - Medications Allergies/Adverse Reactions: Allergies No Known Allergies Allergy (Verified 03/24/21 21:46) Home Medications: Home Medications Medication Instructions Recorded Confirmed Last Taken Type AtorvaSTATin [Lipitor] 40 mg PO QHS 03/25/21 03/25/21 03/24/21 21:00 History Diclofenac 1% [Diclofenac 1% 100 gm TP QID 03/25/21 03/25/21 03/24/21 21:00 History topical gel] Gabapentin 100 mg PO DAILY 03/25/21 03/25/21 03/24/21 21:00 History metFORMIN [Glucophage] 500 mg PO BID 03/25/21 03/25/21 03/24/21 17:00 History Insulin Regular, Human [HumuLIN R] 0 units SUB-Q ACHS 30 Days #1 vial 04/02/21 Unknown Rx amLODIPine 10 mg PO QDAY #30 tablet 04/02/21 Unknown Rx carvediloL [Coreg] 3.125 mg PO BID #60 tablet 04/02/21 Unknown Rx cephALEXin [Keflex] 500 mg PO Q6HR #28 capsule 04/02/21 Unknown Rx hydrALAZINE [Apresoline TAB] 50 mg PO TID #90 tablet 04/02/21 Unknown Rx predniSONE [Deltasone] 20 mg PO QDAY #5 tablet 04/02/21 Unknown Rx Active Medications: Generic Name Dose Route Start Last Admin Trade Name Freq PRN Reason Stop Dose Admin Acetaminophen 650 mg 03/25/21 10:30 03/25/21 10:56 Acetaminophen 325 Mg Tab PO 650 mg Q4H PRN Administration Pain MILD(1-3)/Fever >100.5/GUAJARDO Hydrocodone Bitart/Acetaminophen 2 each 03/25/21 10:30 03/31/21 05:32 Hydrocodone/Acetaminophen 5-325 Mg Tab PO 2 each Q6H PRN Administration Pain, Moderate (4-6) Amlodipine Besylate 10 mg 03/30/21 08:30 04/02/21 09:11 Amlodipine 10 Mg Tab PO 10 mg QDAY PHONG Administration Atorvastatin Calcium 40 mg 03/25/21 22:00 04/01/21 21:32 Atorvastatin 40 Mg Tab PO 40 mg QHS PHONG Administration Dextrose 50 gm 04/01/21 10:30 Dextrose 50% In Water (25gm) 50 Ml Vial IV Q30MIN PRN Hypoglycemia Protocol Enoxaparin Sodium 30 mg 03/27/21 22:00 04/01/21 21:33 Enoxaparin 30 Mg/0.3 Ml Inj SUB-Q 30 mg QHS PHONG Administration Hydralazine HCl 5 mg 03/25/21 10:30 03/29/21 17:33 Hydralazine 20 Mg/1 Ml Inj IV 5 mg Q30MIN PRN Administration Hypertension Hydralazine HCl 50 mg 03/31/21 11:00 04/02/21 09:11 Hydralazine 25 Mg Tab PO 50 mg BID PHONG Administration Hydromorphone HCl 2 mg 03/28/21 11:49 04/01/21 17:10 Hydromorphone 2 Mg/1 Ml Inj IV 2 mg Q4H PRN Administration Pain , Severe (7-10) Piperacillin Sod/Tazobactam Sod 2.25 gm in 50 mls @ 100 mls/hr 03/26/21 14:00 04/02/21 05:06 Zosyn/Ns 2.25 Gm/50ml IV 04/06/21 18:29 100 mls/hr Q6HR PHONG Administration Dextrose/Sodium Chloride 1,000 mls @ 42 mls/hr 04/01/21 10:30 04/01/21 21:38 D5ns IV 0 mls/hr DIRECT PHONG Infusion Sodium Chloride 1,000 mls @ 100 mls/hr 04/01/21 21:45 04/02/21 09:11 Nacl 0.9% 1000 Ml IV 100 mls/hr DIRECT PHONG Administration Insulin Human Regular 0 units 03/26/21 22:00 04/02/21 09:13 Insulin Regular, Human 100 Units/1 Ml SUB-Q 3 units ACHS PHONG Administration Protocol Ondansetron HCl 4 mg 03/25/21 10:30 03/25/21 18:18 Ondansetron 4 Mg/2 Ml Inj IV 4 mg Q8H PRN Administration Nausea And Vomiting Oxycodone HCl 20 mg 03/28/21 13:00 04/02/21 09:10 Oxycodone Er 20 Mg Tab PO 20 mg Q12HR PHONG Administration Prednisone 20 mg 04/01/21 10:00 04/02/21 09:11 Prednisone 20 Mg Tab PO 04/04/21 09:59 20 mg QDAY PHONG Administration Sodium Bicarbonate 650 mg 03/27/21 10:30 04/02/21 09:10 Sodium Bicarbonate 650 Mg Tab PO 650 mg BID PHONG Administration Sodium Polystyrene Sulfonate 15 gm 03/27/21 10:00 Sodium Polystyrene 15 Gm/60 Ml Oral Liqd PO Q6H PRN Hyperkalemia
--- NOTE | 2021-04-02 12:08 | Discharge Summary ---
Providers - Providers Date of Admission: 03/25/21 05:57 Date of discharge: 04/02/21 Attending physician: AMBROCIO GIBSON 03/25/21 10:20 Physical Therapy Evaluation and Treat [CONS] Urgent Comment: Reason For Exam: Debility 03/25/21 12:35 Consult to Physician [CONS] Routine Comment: Consulting Provider: FALLON CARLSON Physician Instructions: Reason For Exam: Leukocytosis 03/25/21 17:26 Consult to Physician [CONS] Routine Comment: Consulting Provider: DES MERLOS Physician Instructions: Reason For Exam: hypotension with possible sepsis 03/25/21 17:28 Consult to Physician [CONS] Routine Comment: Consulting Provider: MADINA KRUEGER Physician Instructions: Reason For Exam: leukocytosis 03/27/21 09:47 Consult to Physician [CONS] Routine Comment: Consulting Provider: JIHAN PHILIP Physician Instructions: Reason For Exam: gregor 03/27/21 12:32 Consult to Physician [CONS] Routine Comment: Consulting Provider: MORE SHAVER Physician Instructions: Reason For Exam: complete tear quadratus femoris 03/28/21 13:32 Consult to Interventional Radiology [CONS] Routine Consulting Provider: CAM HERRON Reason For Exam: CT guided aspiration right SI joint/pelvic areas Place consult to:: Dr. Herron Notified:: Dari VILLAREAL Phone number called:: [phone] Was contact made?: Yes If yes, spoke with:: Greg service Time called:: 14:00 03/30/21 13:29 Consult to Dietitian/Nutrition [CONS] Routine Physician Instructions: Reason For Exam: Reason for Consult: Malnutrition Primary care physician: [employer] Hospitalization Condition: Stable Pertinent studies: Pelvic MRI, lumbar spine MRI, bone scan, lower extremity venous Doppler, abdomen pelvis CT, hip/pelvis x-ray, cervical spine CT, head CT, shoulder x-ray, chest x-ray. Hospital course: Patient is 75-year-old female with history of cervical cancer which is now in remission, hypertension and diabetes mellitus type 2 brought to the emergency room on 03/24/2021 via EMS from home for evaluation of pelvic pain after having a fall that happened in the bathroom on the day of admission. Patient tripped fell and hit her head on the edge of the toilet bowl. Patient denied any loss of consciousness. Patient accompanied by her son who stated that patient had another fall before that and she didnot reveal that to anyone until she had this recent fall. In the ER, EKG showed sinus rhythm with no ST elevation. CT brain, CT cervical spine is unremarkable. Pelvic x-ray is negative for acute finding. Labs reviewed and showed significantly elevated white blood cells of 34,000. Chest x-ray is unremarkable. Urine is negative. CT abdomen and pelvis with IV contrast showed no acute abnormalities. Patient initially given Zosyn empirically. Patient was then called for admission for further evaluation and management. Daily clinical course: 03/25/21: Following admission patient noted to be hypotensive, given IV fluid boluses and continued fluid with maintenance rate. Plan to transfer to ICU to start on pressor if BP does not improve with fluid challenge. Continue empiric antibiotics, consulted ID for recommendation. 03/26/21: Patient continues to complains of pelvic pain. Noted to have severe tenderness over the right ischeal tuberosity. Will Obtain pelvic MRI with contrast and lumbar spine MRI evaluation for possible epidural abscess, discitis, rectal ischial abscess, continue empiric antibiotics for now, IVONNE cloud. Heme-onc consulted possible underlying myeloproliferative disorder. we will follow pending labs- 03/27: Cr trending up - consult nephrology, MRI pelvis pending, ordered bone scan per heam recommendation. started on steroid. follow BMP, trend Cr 03/28: No fracture seen on xray/mri scan but fluid collection seen at right SI joint and torn tendons, Ortho recommend CT guided aspiration right SI joint/pelvic areas - IR consulted. Cr slightly improved, cont to follow BMP. cont steroid, follow CBC 03/29: Renal function remains stable, patient stated that she is slightly feeling better today. Discussed with IR and recommending bone marrow biopsy from right ischium -order placed. Patient remains on steroid pulse dose for possible myeloproliferative disorder. Continue to follow clinically. Will order for PT eval following bone marrow biopsy. 03/30: waiting on BM biopsy, serum creatinine trending down, continue gentle IV fluid hydration. Will assess further with PT eval following removal of the biopsy. 03/31: Pending bone marrow biopsy result. right iliac bone marrow aspiration culture result pending. Continue to follow clinically. Discharge planning when clears by ID and hematology. Hemoglobin electrophoresis status is normal 04/01: BG dropped to 39 today, patient had very poor oral intake last night. Will stop all insulin, start on low volume D5 normal saline. Continue to monitor clinically. Also waiting on ID recommendation for discharge antibiotics. If patient clears by ID and blood glucose stabilizes possible discharge tomorrow morning with outpatient follow-up. 04/02: Blood glucose stable. Discussed plan of care with the granddaughter at the bedside. Patient states that her pelvic pain significantly improved. ID recommended to discharge home with Keflex 500 mg 4 times daily for 1 more week. Bone biopsy report pending -patient will follow the report as outpatient. Discharge plan and management was thoroughly discussed with the patient and with her family at the bedside and they verbalized understanding. Patient is clinically stable, discharged home with home health PT OT. Assessment and Plan Status post fall -CT head without any acute process -Patient has no focal deficit -Patient was evaluated by physical therapy and recommended home health roller walker Severe pelvic pain -Likely traumatic following fall -CT abdomen pelvis x-ray soft tissue injury without any sign of fracture -Pain management as needed -pelvic and lumbar spine MRI: degenerative changes,fluid collection seen at right SI joint and torn tendons, Ortho recommend no surgical intervention needed. -IR consulted and status post BM biopsy, result is currently pending which patient will follow-up as an outpatient -Bone marrow aspiration culture was negative Leukocytosis with WBC > 31K -Reactive with SIRS for pelvic trauma versus myeloproliferative disorder -patient treated with empiric antibiotic -ID on board and neg culture, -Heme-onc on board for possible myeloproliferative disorder - started on tapering dose of steroid -Ordered bone scan showed no osseous malignancy -Status post bone marrow biopsy patient will follow the result as outpatient -ID recommended to discharge home with Keflex 500 mg 4 times daily for 1 more week GREGOR, vasomotor nephropathy -Consulted nephrology, creatinine improved with IV fluid DM type 2 -Consistent carb diet placed on SSI, A1c 9.9 -Discontinued long-acting insulin for hypoglycemic episodes Hyponatrenia, likely due to dehydration, improved. IV fluid Hypotensive episode, resolved following IV fluid boluses Normocytic anemia with thrombocytosis -Monitor H&H follow clinically, normal hemoglobin electrophoresis study -Heme-onc on board, status post bone marrow biopsy Hypertension, continue Norvasc and monitor BP History of cervical cancer, now in remission. Continue outpatient follow-up DVT prophylaxis with Lovenox Disposition: DC/TX- HOME UNDER HOME [facility] Final Discharge Diagnosis (Prints w/discharge instructions): Status post fall likely due to physical debility. Severe pelvic pain due to traumatic fall causing torn tendons/muscles. Leukocytosis - reactive versus myeloproliferative disorder. GREGOR/vasomotor nephropathy resolved. Diabetes mellitus type 2 A1c 9.9. Hyponatremia resolved. Hypotensive episodes resolved. Normocytic anemia with thrombocytosis status post bone marrow biopsy. Hypertension. Physical debility Time spent for discharge: 45 minutes Core Measure Documentation - Palliative Care Palliative Care/ Comfort Measures: Not Applicable - Core Measures Any of the following diagnoses?: none Exam - Physical Exam Narrative exam: GENERAL: well-developed and well-nourished elderly female appears in no distress HEENT: Normocephalic. Atraumatic. No conjunctival congestion or icterus. Patient has moist mucous membranes. NECK: Supple. Trachea midline. CHEST/LUNGS: Clear to auscultated bilaterally, breathing nonlabored. No wheezes crackles or rhonchi. HEART/CARDIOVASCULAR: Regular in rate and rhythm. S1 and S2 positive. ABDOMEN: Abdomen is soft, nontender. Patient has normal bowel sounds. SKIN: There is no rash. Warm and dry. NEURO: No focal motor deficit. Follows command. MUSCULOSKELETAL: No joint effusion EXTRIMITY: No edema, no cyanosis or clubbing. PSYCH: Cooperative. - Constitutional Vitals: Temp Pulse Resp BP Pulse Ox 97.7 F 78 18 178/72 96 04/02/21 07:29 04/02/21 07:29 04/02/21 07:29 04/02/21 07:29 04/02/21 07:29 Plan Activity: advance as tolerated Weight Bearing Status: Weight Bear as Tolerated Diet: diabetic Special Instructions: record daily BP diary, record blood sugar diary Additional Instructions: Repeat CBC BMP in 1 week. Follow-up with Dr. Crowell with your bone marrow biopsy result Follow up with: PRIMARY MD HARRIS [Primary Care Provider] - 7 Days RONNELL ELIZALDE MD [Staff Physician] - 7 Days DOLORES CROWELL MD [Staff Physician] - 7 Days Prescriptions: amLODIPine 10 mg PO QDAY #30 tablet hydrALAZINE [Apresoline TAB] 50 mg PO TID #90 tablet carvediloL [Coreg] 3.125 mg PO BID #60 tablet predniSONE [Deltasone] 20 mg PO QDAY #5 tablet cephALEXin [Keflex] 500 mg PO Q6HR #28 capsule
[2021-04-02 12:45] VITALS: BP 169/61
[2021-04-02] MEDS ORDERED: carvediloL 3.125 MG TAB PO SCH (13:00)
[2021-04-02] MEDS ORDERED: hydrALAZINE 25 MG TAB PO SCH (14:00)
--- NOTE | 2021-04-02 14:53 | Progress Note ---
Assessment and Plan Cultures: Blood culture 03/25/2021 no growth today MRSA PCR negative Assessment: 75-year-old female with history of hypertension, diabetes, admitted on 03/24/2021 secondary to a fall in the bathroom at home pain for several months: #Leukocytosis and thrombocytosis: better 34K--->28K. Of unclear etiology. Reactive secondary to Pelvic trauma/infection?. Patient complaining of pelvic pain for several months. CT abdomen shows fluid tracks along the right medial acetabulum and thickening of the sacrospinosus ligament. Abdominal CT otherwise unremarkable. Patient denies any weight loss. Patient is not the best historian. Elevated procalcitonin in the setting of acute kidney injury. #Bilateral ischial pain R>L: On exam severe tenderness noted mild induration on right ischeal area ? Abscess ? Hematoma ?osteo. Patient reports pain has been there for several weeks and radiates to the right foot. CRP 26--->20. Pelvic MRI with ischial osteomyeltiis?, near completion thorough for the right obturator intrnist muscle with hematoma in right pitifomis. Also right ischiofemoral impingement with complete tear quadratus femoralitis. Lumbar MRI with severe DJD. #Anemia #Elevated LFTs: Mild, AST 46. Unclear etiology, CT without cholecystitis. #GREGOR: Creatinine up Recommendations: -BMBx, BBx performed yesterday, awaiting pathology -Initial gram stain negative, no PMNs. -CRP strongly improved. -Less likely to be an acute osteomyelitis at present. Await pathology -If discharging plan on PO Abx until pathology available. Can do keflex 500mg q6h for 7 more days. -Heme-onc on board Trenton Alegre MD [facility] O: [phone] F: [phone] Subjective Date of service: 04/02/21 Principal diagnosis: Ac. hypoxemic resp failure; S/P fall; Leukocytosis; DM II Interval history: Afebrile, white count 15.8 which is approximately stable surgical culture is negative. Objective - Exam Narrative Exam: General appearance: Alert in no acute distress Eyes: anicteric sclerae, moist conjunctivae; no lid-lag HENT: Normocephalic, Atraumatic; normal external ears, nares open, oropharynx limited Lungs: CTA CV: RRR no murmur Abdomen: Soft, non-tender; no masses or hepatosplenomegaly Extremities: no edema, no cyanosis, bilateral ischial area tenderness Skin: Ischial tenderness improved Psych: Not agitated Neuro: Not agitated - Constitutional Vitals: Vital Signs Temp Pulse Resp BP Pulse Ox 99.1 F 74 18 169/61 99 04/02/21 11:35 04/02/21 11:35 04/02/21 11:35 04/02/21 11:35 04/02/21 11:35 Temperature -Last 24 Hours Temperature 99.1 F Temperature 97.7 F Temperature 98.5 F Temperature 97.9 F Temperature 97.0 F Temperature 97.9 F - Labs CBC & Chem 7: 04/02/21 04:19 04/02/21 04:19 Labs: Abnormal lab results 04/01/21 04/01/21 04/01/21 Range/Units 11:16 16:54 20:29 WBC (4.5-11.0) K/mm3 RBC (3.65-5.03) M/mm3 Hgb (10.1-14.3) gm/dl Hct (30.3-42.9) % RDW (13.2-15.2) % Plt Count (140-440) K/mm3 Lymph % (Auto) (13.4-35.0) % Lymph # (Auto) (1.2-5.4) K/mm3 Seg Neutrophils % (40.0-70.0) % Seg Neutrophils # (1.8-7.7) K/mm3 Chloride (98-107) mmol/L BUN (7-17) mg/dL Glucose (65-100) mg/dL POC Glucose 183 H 292 H 311 H (70-105) mg/dL Calcium (8.4-10.2) mg/dL 04/02/21 04/02/21 04/02/21 Range/Units 04:19 04:19 07:27 WBC 15.8 H (4.5-11.0) K/mm3 RBC 2.74 L (3.65-5.03) M/mm3 Hgb 7.8 L (10.1-14.3) gm/dl Hct 23.4 L (30.3-42.9) % RDW 17.3 H (13.2-15.2) % Plt Count 479 H (140-440) K/mm3 Lymph % (Auto) 6.2 L (13.4-35.0) % Lymph # (Auto) 1.0 L (1.2-5.4) K/mm3 Seg Neutrophils % 88.9 H (40.0-70.0) % Seg Neutrophils # 14.0 H (1.8-7.7) K/mm3 Chloride 107.3 H (98-107) mmol/L BUN 33 H (7-17) mg/dL Glucose 218 H (65-100) mg/dL POC Glucose 214 H (70-105) mg/dL Calcium 8.2 L (8.4-10.2) mg/dL 04/02/21 Range/Units 11:32 WBC (4.5-11.0) K/mm3 RBC (3.65-5.03) M/mm3 Hgb (10.1-14.3) gm/dl Hct (30.3-42.9) % RDW (13.2-15.2) % Plt Count (140-440) K/mm3 Lymph % (Auto) (13.4-35.0) % Lymph # (Auto) (1.2-5.4) K/mm3 Seg Neutrophils % (40.0-70.0) % Seg Neutrophils # (1.8-7.7) K/mm3 Chloride (98-107) mmol/L BUN (7-17) mg/dL Glucose (65-100) mg/dL POC Glucose 220 H (70-105) mg/dL Calcium (8.4-10.2) mg/dL
[2021-04-02] MEDS ORDERED: ENOXAPARIN 40 MG/0.4 ML INJ SUB-Q SCH (22:00)
--- NOTE | 2021-04-16 15:42 | Cat Scan Report ---
PLEASE SEE THE OPERATIVE REPORT [facility]
== END 2021-04-02 16:29 | disposition home health service (06) | DRG 939 ==
LOC: ED 20:35 → 4A 03-25 05:57
PROVIDERS: ADMIT Internal Medicine Geriatric Medicine; ATTEND Internal Medicine
PROC: 3E0234Z Introduction of Serum, Toxoid and Vaccine into Muscle, Percutaneous Approach (ICD-10-PCS; 2021-03-26)
PROC: 0QB23ZX Excision of Right Pelvic Bone, Percutaneous Approach, Diagnostic (ICD-10-PCS; principal; 2021-03-30)
PROC: 079T3ZX Drainage of Bone Marrow, Percutaneous Approach, Diagnostic (ICD-10-PCS; 2021-03-30)
DX: G89.11 Acute pain due to trauma (principal); N17.0 Acute kidney failure with tubular necrosis; G93.41 Metabolic encephalopathy; E87.1 Hypo-osmolality and hyponatremia; R65.10 Systemic inflammatory response syndrome (SIRS) of non-infectious origin without acute organ dysfunction; E87.2 Acidosis; I95.9 Hypotension, unspecified; D72.829 Elevated white blood cell count, unspecified; I10 Essential (primary) hypertension; R10.2 Pelvic and perineal pain; E11.9 Type 2 diabetes mellitus without complications; D47.3 Essential (hemorrhagic) thrombocythemia; D64.9 Anemia, unspecified; M46.40 Discitis, unspecified, site unspecified; K61.39 Other ischiorectal abscess; R09.02 Hypoxemia; W01.0XXA Fall on same level from slipping, tripping and stumbling without subsequent striking against object, initial encounter; E87.5 Hyperkalemia; Z79.899 Other long term (current) drug therapy; Z98.51 Tubal ligation status; Z82.49 Family history of ischemic heart disease and other diseases of the circulatory system; Y93.89 Activity, other specified; Y92.091 Bathroom in other non-institutional residence as the place of occurrence of the external cause; Y99.8 Other external cause status; Z23 Encounter for immunization
CPT/HCPCS: 36415; 38220; 70450; 71045; 72125; 72148; 72195; 73521; 74177; 78306; 80048; 80053; 80076; 81001; 81207; 82728; 82805; 82962; 83036; 83550; 83615; 84145; 84165; 84550; 85007; 85025; 85027; 85097; 85379; 85610; 85652; 85730; 86140; 87040; 87116; 87641; 88161; 88184; 88185; 88230; 88291; 88305; 88311; 88313; 88333; 93005; 93970; G0378; A9270-GY; A9503; J0360; J0696; J1170; J1650; J1815; J2060; J2250; J2270; J2405; J2543; J2920; J2930; J3010; J3370; J7030; J7040; J7042; J7050; J7512; Q9967

== ENCOUNTER 2021-05-02 02:29 | Emergency (ER) | payer MEDICARE ==
[2021-05-02] MEDS ORDERED: EPINEPHrine 1 MG/10 ML SYRINGE ONE (03:13)
[2021-05-02] MEDS ORDERED: CALCIUM CHLORIDE 1,000 MG/10 ML SYRINGE IV ONE (03:13)
[2021-05-02] MEDS ORDERED: SODIUM BICARB 8.4% 50 MEQ/50 ML SYRINGE IV ONE (03:13)
[2021-05-02] MEDS ORDERED: ATROPINE 0.1% (1 MG/10 ML) CARDIAC SYRINGE ONE (03:13)
--- NOTE | 2021-05-02 05:19 | Emergency Department Report ---
ED CPR HPI - General Chief Complaint: Cardiac Arrest/CPR Stated Complaint: CARDIAC ARREST Time Seen by Provider: 05/02/21 03:15 Source: EMS Mode of arrival: Stretcher Limitations: Other - History of Present Illness Initial Comments: found down unknown amount of time. family was sleeping and one family member went to check on patient and found her on the floor unresponsive without a pulse. Patient had been complaining of feeling unwell throughout the day prior according to family members. MD Complaint: found unresponsive -: minute(s) (30) Place: home Bystander CPR Performed: No AED Applied by Bystander/Artist Model: No Shock Advised: No Initial Findings in the Field: unresponsive, no pulse, systole ROSC in the Field: No Associated Injuries: No Treatments Prior to Arrival: intubation, chest compressions, epinephrine mgs # (1), sodium bicarbonate (1) - Related Data Home Medications Medication Instructions Recorded Confirmed Last Taken AtorvaSTATin [Lipitor] 40 mg PO QHS 03/25/21 03/25/21 03/24/21 21:00 Diclofenac 1% [Diclofenac 1% 100 gm TP QID 03/25/21 03/25/21 03/24/21 21:00 topical gel] Gabapentin 100 mg PO DAILY 03/25/21 03/25/21 03/24/21 21:00 metFORMIN [Glucophage] 500 mg PO BID 03/25/21 03/25/21 03/24/21 17:00 Previous Rx's Medication Instructions Recorded Last Taken Type Insulin Regular, Human [HumuLIN R] 0 units SUB-Q ACHS 30 Days #1 vial 04/02/21 Unknown Rx amLODIPine 10 mg PO QDAY #30 tablet 04/02/21 Unknown Rx carvediloL [Coreg] 3.125 mg PO BID #60 tablet 04/02/21 Unknown Rx cephALEXin [Keflex] 500 mg PO Q6HR #28 capsule 04/02/21 Unknown Rx hydrALAZINE [Apresoline TAB] 50 mg PO TID #90 tablet 04/02/21 Unknown Rx predniSONE [Deltasone] 20 mg PO QDAY #5 tablet 04/02/21 Unknown Rx Allergies Allergy/AdvReac Type Severity Reaction Status Date / Time No Known Allergies Allergy Verified 03/24/21 21:46 ED Review of Systems ROS: Stated complaint: CARDIAC ARREST Other details as noted in HPI Comment: Unobtainable due to pts medical conditions ED Past Medical Hx - Past Medical History Hx Hypertension: Yes Hx Diabetes: Yes Hx HIV: No Additional medical history: cervical cancer - Social History Smoking Status: Former Smoker - Medications Home Medications: Home Medications Medication Instructions Recorded Confirmed Last Taken Type AtorvaSTATin [Lipitor] 40 mg PO QHS 03/25/21 03/25/21 03/24/21 21:00 History Diclofenac 1% [Diclofenac 1% 100 gm TP QID 03/25/21 03/25/21 03/24/21 21:00 History topical gel] Gabapentin 100 mg PO DAILY 03/25/21 03/25/21 03/24/21 21:00 History metFORMIN [Glucophage] 500 mg PO BID 03/25/21 03/25/21 03/24/21 17:00 History Insulin Regular, Human [HumuLIN R] 0 units SUB-Q ACHS 30 Days #1 vial 04/02/21 Unknown Rx amLODIPine 10 mg PO QDAY #30 tablet 04/02/21 Unknown Rx carvediloL [Coreg] 3.125 mg PO BID #60 tablet 04/02/21 Unknown Rx cephALEXin [Keflex] 500 mg PO Q6HR #28 capsule 04/02/21 Unknown Rx hydrALAZINE [Apresoline TAB] 50 mg PO TID #90 tablet 04/02/21 Unknown Rx predniSONE [Deltasone] 20 mg PO QDAY #5 tablet 04/02/21 Unknown Rx ED Physical Exam - General Limitations: Other General appearance: obtunded - Head Head exam: Present: atraumatic - Eye Pupils: Present: other (fixed and dilated) - ENT ENT exam: Present: other (combitube in place, blood in mouth req suction.) - Neck Neck exam: Present: normal inspection - Respiratory Respiratory exam: Present: other (bag ventillation) - Cardiovascular Cardiovascular Exam: Present: other (no cardiac activity) - GI/Abdominal GI/Abdominal exam: Present: soft - Extremities Exam Extremities exam: Present: full ROM - Neurological Exam Neurological exam: Present: other (pupils fixed and dilated) - Skin Skin exam: Present: dry ED Course - Reevaluation(s) Reevaluation #1: 05/02/21 02:25 combi tube was change to an ETT by ES Eller Patient received several aliquots of epi, sod bicarb, did regain pulses twice but lost it again, patient with unknown downtime, fixed and dilated pupils and no cardiac activity, remained pulseless after long cpr. time of 313. - Intubation Time Out Performed: Yes Sedative: none Laryngoscope: fiberoptic video scope Size: 4 ET Tube Size: 7 Tube Secured Depth (cm): 23 Tube Secured Location: teeth Tube Placement Confirmation: visualized tube passing t Patient Tolerated Procedure: well Intubation Complications: none Critical care attestation.: If time is entered above; I have spent that time in minutes in the direct care of this critically ill patient, excluding procedure time. ED Disposition Clinical Impression: Cardiac arrest Disposition: DC-20 Is pt being admited?: No Does the pt Need Aspirin: No Condition: Stable Referrals: LACEY GONZALES MD [Primary Care Provider] - 3-5 Days
== END 2021-05-02 04:00 ==
LOC: ED 02:29
DX: I46.9 Cardiac arrest, cause unspecified (principal); I10 Essential (primary) hypertension; E11.9 Type 2 diabetes mellitus without complications; Z79.4 Long term (current) use of insulin; Z87.891 Personal history of nicotine dependence; Z79.899 Other long term (current) drug therapy
CPT/HCPCS: 31500; 99285; J0171; J0461